=== PATIENT | female | born 1960 | race Caucasian/White ===

== ENCOUNTER 2018-08-14 23:35 | Inpatient (IN) ==
[2018-08-15] MEDS ORDERED: SODIUM CHLORIDE 0.9% 500 ML IV SCH (00:15)
[2018-08-15] MEDS ORDERED: ALBUT/IPRATROP 3MG/0.5MG NEB 3 ML VIAL NEB STA (00:15)
[2018-08-15] MEDS ORDERED: PIPERACILLIN/TAZOBACTAM 4.5 GM/120 ML BAG IV ONE (00:17)
[2018-08-15] MEDS ORDERED: PIPERACILL/TAZOBAC CONSULT ACTIVE PRN ×2 (00:17→06:54)
[2018-08-15 01:14] LABS: Basophils # (auto) 0.01 K/uL (0-0.2); Basophils % (auto) 0.3 %; Hematocrit (blood only) 31.3 % (37-47); Hemoglobin 10.3 g/dL (12.0-16.0); Immature Granulocytes # (auto) 0.04 K/uL (0.00-0.02); Immature Granulocytes % (auto) 1.1 %; Lymphocytes # (auto) 1.48 K/uL (1.2-3.4); Mean Corpuscular Hgb Conc 32.9 g/dL (32-36); Mean Corpuscular Volume 91.8 fL (80-100); Monocytes # (auto) 0.56 K/uL (0.11-0.59); Monocytes % (auto) 15.9 %; Neutrophils # (auto) 1.43 K/uL (1.4-6.5); Neutrophils % (auto) 40.7 %; Platelet Count 156 K/uL (130-400); RDW Coefficient of Variation 15.8 % (11.5-14.5); RDW Standard Deviation 52.4 fL (36.4-46.3); Red Blood Count 3.41 M/uL (4.2-5.4); White Blood Count 3.52 K/uL (4.8-10.8)
[2018-08-15 01:17] LABS: iSTAT Creatinine 0.8 mg/dl (0.6-1.3); iSTAT Hemoglobin 9.5 g/dl (12.0-16.0); iSTAT Ionized Calcium 0.81 mmol/l (1.12-1.32); iSTAT Potassium 2.9 mEq/L (3.3-5.0)
[2018-08-15 01:21] LABS: iSTAT Creatinine 0.8 mg/dl (0.6-1.3); iSTAT Hemoglobin 9.2 g/dl (12.0-16.0); iSTAT Ionized Calcium 0.8 mmol/l (1.12-1.32); iSTAT Potassium 3.2 mEq/L (3.3-5.0)
--- NOTE | 2018-08-15 01:22 | Emergency Department Note ---
History of Present Illness General Chief complaint: Respiratory Problems Stated complaint: SILENT ASPIRATIATOR CANCER STOMACH BLEEDING History of Present Illness Maximum Pain Intensity: 2 This 57-year-old presents to the ER complaining of cough, shortness of breath, abdominal pain concerns for aspiration Location: Generalized Quality: Uncomfortable Severity: Moderate Duration: Today Timing: Patient thinks she aspirated on the liquid Context: Patient was concerned and came in Modifying factors: better with nothing; worse with palpation and breathing Patient has a history of neck and throat cancer. No recent chemo or radiation. She follows at [facility]. Patient states she aspirates on liquids and needs to thicken them. She did not do this tonight. She thinks she aspirated on her drink. Patient also comments of bruising and pain to her mid abdomen. Patient denies chest pain, fevers, productive cough, numbness, tingling. She states she normally needs antibiotics when she aspirates. Home Medications Home Medications Medication Instructions Recorded Confirmed Type levothyroxine [Synthroid] 137 mcg PO DAILY 08/15/18 08/15/18 History lorazepam [Ativan] 1 mg PO TID PRN 08/15/18 08/15/18 History oxycodone 15 mg PO DAILY PRN 08/15/18 08/15/18 History pantoprazole [Protonix] 20 mg PO QAM 08/15/18 08/15/18 History Allergies Allergy/AdvReac Type Severity Reaction Status Date / Time omeprazole [From Prilosec] Allergy Rash Verified 08/15/18 03:38 prednisone Allergy Unknown Verified 08/15/18 03:38 Past Med/Surg History Medical History Cancer of neck Social History Feels Safe at Home: Yes Smoking Status: Former smoker Review of Systems All systems reviewed & are unremarkable except as noted in HPI & below Physical Exam Vital Signs Vital Signs - 24 hr 08/14/18 23:39 08/15/18 00:33 08/15/18 01:37 Temperature 36.8 C Temperature Source Oral Sepsis Recent Fever Within 48 Hours No Sepsis Action Taken by Nursing No Action Required Pulse Rate 95 H Pulse Rate [Right Finger] 87 97 H Respiratory Rate 20 18 18 Respiratory Effort / Characteristics Non-Labored Respiratory Depth Normal Blood Pressure 116/82 Blood Pressure [Right Arm] 84/53 L Blood Pressure Mean 93 Blood Pressure Mean [Right Arm] 63 Pulse Oximetry 99 98 Oxygen Delivery Method Room Air Room Air Oxygen Flow Rate 08/15/18 02:14 08/15/18 02:44 08/15/18 03:03 Temperature Temperature Source Sepsis Recent Fever Within 48 Hours Sepsis Action Taken by Nursing Pulse Rate Pulse Rate [Right Finger] 87 90 Respiratory Rate 18 19 Respiratory Effort / Characteristics Respiratory Depth Blood Pressure Blood Pressure [Right Arm] 94/64 L 90/60 L 118/88 Blood Pressure Mean Blood Pressure Mean [Right Arm] 74 70 98 Pulse Oximetry 88 L 98 Oxygen Delivery Method Room Air Nasal Cannula Oxygen Flow Rate 1 1 VITALS: Vitals are noted on the nurse's note and reviewed by myself. Vital signs stable. GENERAL: Pleasant female, in no acute distress, nondiaphoretic, well-developed well-nourished. SKIN: The skin was without rashes, erythema, edema, or bruising. There is no tenting of the skin. Capillary reflex less than 2 seconds. HEAD: Normocephalic atraumatic. EARS: External auditory canals clear, tympanic membranes pearly hyde without erythema or effusion bilaterally. EYES: Pupils equal round and reactive to light and accommodation. Conjunctivae without injection, sclerae without icterus. Extraocular movements intact. NOSE: Patent, turbinates without inflammation or discharge. No sinus tenderness. MOUTH: Mucous membranes dry. Pharynx without erythema or exudate. Uvula midline. Airway patent. Tongue does not deviate. NECK: Supple without nuchal rigidity. No lymphadenopathy. No thyromegaly. Cervical spine is nontender. No JVD. HEART: Regular rate and rhythm LUNGS: Mild diffuse and expiratory wheezes, no rales or rhonchi. No retractions or accessory muscle use. ABDOMEN: Positive bowel sounds x 4. Normal tympanic percussion. Soft, tender to palpation mid abdomen with contusion present, minimal drainage from old PEG tube site, wound culture was taken, without masses or organomegaly. Cancino sign negative. No guarding or rebound tenderness. No CVA tenderness MUSCULOSKELETAL: No muscle atrophy, erythema, or edema noted. NEURO: Patient was alert and oriented to person place and time. Normal sensation to light and sharp touch. No focal neurological deficits. Course Administered Medications Magnesium Sulfate/Dextrose (Magnesium Sulfate / D5w) 1 gm in 100 mls @ 100 mls/hr IV Q1H HARSHAD Stop: 08/15/18 04:59 Last Admin: 08/15/18 03:10 Dose: 100 mls/hr Documented by: [id number] Ioversol (Optiray 320 100ml) 94 ml IV ONCE PRN PRN Reason: Interaction Checking Stop: 08/19/18 01:34 Last Admin: 08/15/18 01:36 Dose: 1 ml Documented by: [id number] Discontinued Medications Albuterol (Duoneb) 3 ml NEB NOW STA Stop: 08/15/18 00:16 Last Admin: 08/15/18 00:30 Dose: 3 ml Documented by: [id number] Piperacillin Sod/Tazobactam Sod (Zosyn) 4.5 gm in 120 mls @ 240 mls/hr IV NOW ONE Stop: 08/15/18 00:46 Last Infusion: 08/15/18 02:02 Dose: 0 mls/hr Documented by: [id number] Admin: 08/15/18 01:19 Dose: 240 mls/hr Documented by: [id number] Sodium Chloride (Nss) 500 mls @ 999 mls/hr IV .Q31M HARSHAD Stop: 08/15/18 00:45 Last Infusion: 08/15/18 01:40 Dose: 0 mls/hr Documented by: [id number] Admin: 08/15/18 01:13 Dose: 999 mls/hr Documented by: [id number] Sodium Chloride (Nss) 500 mls @ 999 mls/hr IV .Q31M ONE Stop: 08/15/18 03:19 Last Admin: 08/15/18 03:03 Dose: 999 mls/hr Documented by: [id number] Potassium Chloride (Klor-Con M10) 40 meq PO NOW STA Stop: 08/15/18 02:33 Last Admin: 08/15/18 03:02 Dose: Not Given Documented by: [id number] Potassium Chloride (Colette Ciel Elix) Confirm Administered Dose 40 meq .ROUTE .STK- MED ONE Stop: 08/15/18 02:52 Last Admin: 08/15/18 03:03 Dose: 40 meq Documented by: [id number] Medical Decision Making Medical Records Attestation: I reviewed the patient's medical records. Home Medications Current Medication List: was personally reviewed by me Laboratory Data Attestation: I reviewed the patient's lab results. Result diagrams: 08/15/18 01:03 08/15/18 01:03 Lab Results 08/15/18 08/15/18 08/15/18 Range/Units 01:00 01:03 01:03 WBC 3.52 L (4.8-10.8) K/uL RBC 3.41 L (4.2-5.4) M/uL Hgb 10.3 L (12.0-16.0) g/dL POC Hgb (12.0-16.0) g/dl Hct 31.3 L (37-47) % POC Hct (37-47) % MCV 91.8 (80-100) fL MCH 30.2 (25-34) pg MCHC 32.9 (32-36) g/dL RDW Std Deviation 52.4 H (36.4-46.3) fL RDW Coeff of Ainsley 15.8 H (11.5-14.5) % Plt Count 156 (130-400) K/uL MPV 9.0 (7.4-10.4) fL Immature Gran % (Auto) 1.1 % Neut % (Auto) 40.7 % Lymph % (Auto) 42.0 % Dare % (Auto) 15.9 % Eos % (Auto) 0.0 % Baso % (Auto) 0.3 % Immature Gran # (Auto) 0.04 H (0.00-0.02) K/uL Neut # (Auto) 1.43 (1.4-6.5) K/uL Lymph # (Auto) 1.48 (1.2-3.4) K/uL Dare # (Auto) 0.56 (0.11-0.59) K/uL Eos # (Auto) 0.00 (0-0.5) K/uL Baso # (Auto) 0.01 (0-0.2) K/uL PT 10.2 (9.0-12.0) Seconds INR 1.0 (0.9-1.1) APTT 23.3 (21.0-31.0) Seconds PTT Ratio 0.9 POC Sodium (135-144) mEq/L Sodium (136-145) mmol/L POC Potassium (3.3-5.0) mEq/L Potassium (3.5-5.1) mmol/L POC Chloride (101-112) mEq/L Chloride (98-107) mmol/L Carbon Dioxide (21-32) mmol/L POC Total CO2 (24-31) mEq/l Anion Gap (3-11) POC Anion Gap (16-25) mmol/L POC BUN (7-18) mg/dl BUN (7-18) mg/dl Creatinine (0.6-1.2) mg/dl POC Creatinine (0.6-1.3) mg/dl Est Cr Clr Drug Dosing ml/min Est GFR ( Amer) Est GFR (Non-Af Amer) BUN/Creatinine Ratio (10-20) Glucose (70-99) mg/dl POC Glucose (other) (70-99) mg/dl POC Lactic Acid Davian 1.38 (0.90-1.70) mmol/L Calcium (8.5-10.1) mg/dl POC Ioniz Calcium [place] (1.12-1.32) mmol/l Magnesium (1.8-2.4) mg/dl Total Bilirubin (0.2-1) mg/dl AST (15-37) U/L ALT (12-78) U/L Alkaline Phosphatase (45-117) U/L Total Protein (6.4-8.2) gm/dl Albumin (3.4-5.0) gm/dl Globulin (2.5-4.0) gm/dl Albumin/Globulin Ratio (0.9-2) Urine Color Urine Appearance (Clear) Urine pH (4.5-7.5) Ur Specific [place] (1.000-1.030) Urine Protein (Negative) Urine Glucose (UA) (Negative) Urine Ketones (Negative) Urine Blood (Negative) Urine Nitrite (Negative) Urine Bilirubin (Negative) Urine Urobilinogen (Negative) Ur Leukocyte Esterase (Negative) 08/15/18 08/15/18 08/15/18 Range/Units 01:03 01:04 01:09 WBC (4.8-10.8) K/uL RBC (4.2-5.4) M/uL Hgb (12.0-16.0) g/dL POC Hgb 9.5 L 9.2 L (12.0-16.0) g/dl Hct (37-47) % POC Hct 28 L 27 L (37-47) % MCV (80-100) fL MCH (25-34) pg MCHC (32-36) g/dL RDW Std Deviation (36.4-46.3) fL RDW Coeff of Ainsley (11.5-14.5) % Plt Count (130-400) K/uL MPV (7.4-10.4) fL Immature Gran % (Auto) % Neut % (Auto) % Lymph % (Auto) % Dare % (Auto) % Eos % (Auto) % Baso % (Auto) % Immature Gran # (Auto) (0.00-0.02) K/uL Neut # (Auto) (1.4-6.5) K/uL Lymph # (Auto) (1.2-3.4) K/uL Dare # (Auto) (0.11-0.59) K/uL Eos # (Auto) (0-0.5) K/uL Baso # (Auto) (0-0.2) K/uL PT (9.0-12.0) Seconds INR (0.9-1.1) APTT (21.0-31.0) Seconds PTT Ratio POC Sodium 142 142 (135-144) mEq/L Sodium 144 (136-145) mmol/L POC Potassium 2.9 L 3.2 L (3.3-5.0) mEq/L Potassium 3.0 L (3.5-5.1) mmol/L POC Chloride 97 L 97 L (101-112) mEq/L Chloride 105 (98-107) mmol/L Carbon Dioxide 33 H (21-32) mmol/L POC Total CO2 28 28 (24-31) mEq/l Anion Gap 6.0 (3-11) POC Anion Gap 21.0 22.0 (16-25) mmol/L POC BUN 16 16 (7-18) mg/dl BUN 17 (7-18) mg/dl Creatinine 0.74 (0.6-1.2) mg/dl POC Creatinine 0.8 0.8 (0.6-1.3) mg/dl Est Cr Clr Drug Dosing 76.7 ml/min Est GFR ( Amer) 102.8 Est GFR (Non-Af Amer) 88.7 BUN/Creatinine Ratio 22.4 H (10-20) Glucose 91 (70-99) mg/dl POC Glucose (other) 97 92 (70-99) mg/dl POC Lactic Acid Davian (0.90-1.70) mmol/L Calcium 5.9 L* (8.5-10.1) mg/dl POC Ioniz Calcium [place] 0.81 L 0.80 L (1.12-1.32) mmol/l Magnesium 0.8 L* (1.8-2.4) mg/dl Total Bilirubin 0.8 (0.2-1) mg/dl AST 27 (15-37) U/L ALT 35 (12-78) U/L Alkaline Phosphatase 48 (45-117) U/L Total Protein 5.3 L (6.4-8.2) gm/dl Albumin 2.8 L (3.4-5.0) gm/dl Globulin 2.5 (2.5-4.0) gm/dl Albumin/Globulin Ratio 1.1 (0.9-2) Urine Color Urine Appearance (Clear) Urine pH (4.5-7.5) Ur Specific [place] (1.000-1.030) Urine Protein (Negative) Urine Glucose (UA) (Negative) Urine Ketones (Negative) Urine Blood (Negative) Urine Nitrite (Negative) Urine Bilirubin (Negative) Urine Urobilinogen (Negative) Ur Leukocyte Esterase (Negative) 08/15/18 08/15/18 Range/Units 01:13 03:00 WBC (4.8-10.8) K/uL RBC (4.2-5.4) M/uL Hgb (12.0-16.0) g/dL POC Hgb (12.0-16.0) g/dl Hct (37-47) % POC Hct (37-47) % MCV (80-100) fL MCH (25-34) pg MCHC (32-36) g/dL RDW Std Deviation (36.4-46.3) fL RDW Coeff of Ainsley (11.5-14.5) % Plt Count (130-400) K/uL MPV (7.4-10.4) fL Immature Gran % (Auto) % Neut % (Auto) % Lymph % (Auto) % Dare % (Auto) % Eos % (Auto) % Baso % (Auto) % Immature Gran # (Auto) (0.00-0.02) K/uL Neut # (Auto) (1.4-6.5) K/uL Lymph # (Auto) (1.2-3.4) K/uL Dare # (Auto) (0.11-0.59) K/uL Eos # (Auto) (0-0.5) K/uL Baso # (Auto) (0-0.2) K/uL PT (9.0-12.0) Seconds INR (0.9-1.1) APTT (21.0-31.0) Seconds PTT Ratio POC Sodium (135-144) mEq/L Sodium (136-145) mmol/L POC Potassium (3.3-5.0) mEq/L Potassium (3.5-5.1) mmol/L POC Chloride (101-112) mEq/L Chloride (98-107) mmol/L Carbon Dioxide (21-32) mmol/L POC Total CO2 (24-31) mEq/l Anion Gap (3-11) POC Anion Gap (16-25) mmol/L POC BUN (7-18) mg/dl BUN (7-18) mg/dl Creatinine (0.6-1.2) mg/dl POC Creatinine (0.6-1.3) mg/dl Est Cr Clr Drug Dosing ml/min Est GFR ( Amer) Est GFR (Non-Af Amer) BUN/Creatinine Ratio (10-20) Glucose (70-99) mg/dl POC Glucose (other) (70-99) mg/dl POC Lactic Acid Davian 1.56 (0.90-1.70) mmol/L Calcium (8.5-10.1) mg/dl POC Ioniz Calcium [place] (1.12-1.32) mmol/l Magnesium (1.8-2.4) mg/dl Total Bilirubin (0.2-1) mg/dl AST (15-37) U/L ALT (12-78) U/L Alkaline Phosphatase (45-117) U/L Total Protein (6.4-8.2) gm/dl Albumin (3.4-5.0) gm/dl Globulin (2.5-4.0) gm/dl Albumin/Globulin Ratio (0.9-2) Urine Color Yellow Urine Appearance Clear (Clear) Urine pH 6.5 (4.5-7.5) Ur Specific [place] 1.030 (1.000-1.030) Urine Protein Negative (Negative) Urine Glucose (UA) Negative (Negative) Urine Ketones Negative (Negative) Urine Blood Negative (Negative) Urine Nitrite Negative (Negative) Urine Bilirubin Negative (Negative) Urine Urobilinogen Negative (Negative) Ur Leukocyte Esterase Negative (Negative) Imaging Data Attestation: I personally reviewed and interpreted this imaging study as follows: MDM Narrative Prior records/ancillary studies reviewed and summarized above. Nursing notes reviewed. The patient's history was concerning for dysphasia, cough, abdominal pain. Differential diagnosis: Etiologies such as aspiration, intra-abdominal, pulmonary, metabolic, infection, hypo/hyperglycemia, electrolyte abnormalities, cardiac sources, intracerebral event, toxicologic, neurologic, as well as others were entertained. Physical examination: As above. ER treatment provided: IV Lock IV fluids, Zosyn, nebulizer On reassessment the patient felt better. Diagnostics interpretation by me: ECG: Normal sinus, normal intervals, no acute ST-T wave changes. Impression normal sinus rhythm interpreted by myself I think arrhythmia is unlikely. EKG shows normal sinus rhythm with no interval abnormalities such as QT prolongation or WPW. There are no findings to suggest Brugada syndrome. Cardiac monitoring in the emergency department reveals no tachycardic or bradycardic dysrhythmia. Hypertrophic cardiomyopathy was considered but there are no clear historical elements pointing toward this. EKG is not suggestive. The QRS voltage is not extremely large and there are no suggestive Q waves. The labs revealed no leukocytosis. Blood cultures pending Low potassium, low magnesium, low calcium Imaging studies: Chest x-ray with no acute consolidation, pneumothorax or free air per my interpretation CT CHEST With Contrast: Minimal dependent atelectasis at lung bases. Mild nodularity in left lower lobe, measuring up to 4 mm. No findings to suggest aspiration pneumonia. No pleural effusion. No mediastinal or hilar lymphadenopathy. Small pericardial effusion. Heart is not enlarged. Coronary artery calcifications. Degenerative changes of thoracic spine. Radiologist: Jean Kline MD CT NECK: Thickening of right oropharyngeal mucosa, epiglottis and right aryepiglottic fold, suggest suggesting tumor and/or posttreatment changes given history. Moderate resulting airway narrowing. No priors available for comparison. Heterogeneously enhancing, irregularly bordered, and partially calcified right level II mass/conglomerate lymphadenopathy measuring up to 4.5 x 2.6 x 4.1 cm, consistent with metastatic disease. 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 Mass also involves the inferior aspect of the right parotid gland. Additional 1.2 cm likely necrotic right level 2/3 lymph node. Mild to moderate paranasal sinus mucosal thickening. Complete opacification of visualized left frontal sinus. Subcentimeter thyroid nodularity. Thyroid is small in size. Degenerative changes of cervical spine. 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 Partially calcified disc extrusion at C3-C4 causes moderate canal stenosis Radiologist: Jean Kline MD Study ready at 01:51 and initial results transmitted at 02:25 There is a tract in the left upper abdominal wall, likely related to prior PEG tube placement, with associated thick wall, fat stranding, and small foci of gas. Findings suggest possible infected surgical tract. Correlate with physical exam. There is mild intrahepatic and extrahepatic biliary ductal dilatation with common bile duct measuring up to 10 mm. Question small stone in distal common bile duct. Suggest further evaluation with MRCP as clinically warranted. Large calcified gallstone and probable mild gallbladder wall calcification. Gallbladder is not pathologically distended. 11 mm left adrenal nodule. Trace fluid in pelvis. No free air. Colonic diverticulosis without evidence of acute diverticulitis. Hyperdense material in the appendix, but no evidence of acute appendicitis. No bowel obstruction. Grade 2 anterolisthesis of L4 on L5. Multilevel degenerative changes of spine. Small fat-containing umbilical hernia. Radiologist: Jean Kline MD Consultation: A consultation was placed with the hospitalist, Dr Overton. The case was discussed and diagnostics were reviewed. The patient was evaluated in the ER for further treatment. Exam and history seem consistent with cellulitis of the PEG tube tract site, low potassium and magnesium. Patient will be evaluated by medicine. She is agreeable treatment plan of admission. Patient is refusing transfer to any other facility. Medicine feels comfortable admitting. By the evaluation outlined above emergent etiologies such as cardiac sources, intracerebral event, toxologic, neurologic, abnormalities blood glucose, metabolic, as well as others were deemed relatively unlikely. The pt informed about the findings as listed above. All questions were answered and pleased with the treatment. Case reviewed with my attending The chart was completed utilizing [employer] Speech voice recognition software. Grammatical errors, random word insertions, pronoun errors, and incomplete sentences are an occassional consequence of this system due to software limitations, ambient noise, and hardware issues. Any formal questions or concerns about the content, text, or information contained within the body of this dictation should be directly addressed to the physician respiratory care assistant for clarification. Impression & Plan Abdominal wall cellulitis, Hypokalemia, Hypomagnesemia Discharge Plan Visit Data Chief Complaint: Respiratory Problems Stated Complaint: SILENT ASPIRATIATOR CANCER STOMACH BLEEDING ED Provider: Jean Nevarez ED Midlevel Provider: Pearl Bennett Discharge Problem: Abdominal wall cellulitis, Hypokalemia, Hypomagnesemia Patient Disposition: Being Evaluated by Hospitalist Condition: Fair Forms Stand Alone Forms: [facility] Prescriptions Prescriptions: No Action levothyroxine [Synthroid] 137 mcg Tablet 137 mcg PO DAILY RF: 0 oxycodone 15 mg Tablet 15 mg PO DAILY PRN (Reason: Pain) RF: 0 pantoprazole [Protonix] 20 mg Tablet,Delayed Release (Dr/Ec) 20 mg PO QAM RF: 0 lorazepam [Ativan] 1 mg Tablet 1 mg PO TID PRN (Reason: Anxiety) RF: 0 Referrals Referrals: PCP,NO [Primary Care Provider] -
[2018-08-15 01:26] LABS: Partial Thromboplastin Ratio 0.9; Partial Thromboplastin Time 23.3 Seconds (21.0-31.0); Prothrombin Time 10.2 Seconds (9.0-12.0)
[2018-08-15] MEDS ORDERED: IOVERSOL 100ml IV PRN (01:35)
[2018-08-15 02:08] LABS: Albumin Globulin Ratio 1.1 (0.9-2); Albumin Level 2.8 gm/dl (3.4-5.0); BUN Creatinine Ratio 22.4 (10-20); Bilirubin,Total 0.8 mg/dl (0.2-1); Calcium 5.9 mg/dl (8.5-10.1); Creatinine Clr Calc Pharmacy 76.7 ml/min; Est GFR (African American) 102.8; Est GFR (Non-African American) 88.7; Globulin 2.5 gm/dl (2.5-4.0); Total Protein 5.3 gm/dl (6.4-8.2)
[2018-08-15] MEDS ORDERED: POTASSIUM CHLORIDE 10 MEQ TABCR PO STA (02:32)
[2018-08-15] MEDS ORDERED: SODIUM CHLORIDE 0.9% 500 ML IV ONE (02:49)
[2018-08-15] MEDS ORDERED: POTASSIUM CHLORIDE 20 MEQ/15 ML UDC ONE (02:51)
[2018-08-15 02:55] LABS: Magnesium 0.8 mg/dl (1.8-2.4)
[2018-08-15] MEDS ORDERED: MAGNESIUM SULFATE / D5W 1 GM/100 ML BAG IV SCH ×2 (03:00→07:30)
[2018-08-15 03:17] LABS: Appearance Urine Clear (Clear); Bilirubin Urine Negative (Negative); Blood Urine Negative (Negative); Color Urine Yellow; Glucose Urine UA Negative (Negative); Ketones Urine Negative (Negative); Leukocyte Esterase Urine Negative (Negative); Nitrite Urine Negative (Negative); Protein Urine Negative (Negative); Urobilinogen Urine Negative (Negative); pH Urine 6.5 (4.5-7.5)
[2018-08-15] MEDS ORDERED: CALCIUM GLUCONATE 10% 1,000 MG in SODIUM CHLORIDE 0.9% 50 ML IV STA (04:51)
[2018-08-15] MEDS ORDERED: LEVOTHYROXINE SODIUM 137 MCG TABLET PO SCH (06:30)
[2018-08-15] MEDS ORDERED: OXYCODONE HCL IR 5 MG TAB (IMMEDIATE RELEASE) PO PRN (06:54)
[2018-08-15] MEDS ORDERED: PIPERACILLIN/TAZOBACTAM 4.5 GM in DEXTROSE 5% 100 ML IV STA (06:54)
[2018-08-15] MEDS ORDERED: LORazepam 1 MG TAB PO PRN (06:54)
[2018-08-15] MEDS ORDERED: NITROGLYCERIN SL 0.4 MG/TAB TAB SL PRN (06:54)
[2018-08-15] MEDS ORDERED: POTASSIUM CHLORIDE 20 MEQ TABCR PO STA (06:54)
[2018-08-15] MEDS ORDERED: MAGNESIUM SULFATE / D5W 1 GM/100 ML BAG IV ONE (06:54)
[2018-08-15] MEDS ORDERED: ONDANSETRON INJ 2 MG/ML 2 ML VIAL IV PRN (06:54)
[2018-08-15] MEDS ORDERED: ACETAMINOPHEN 325 MG TAB PO PRN (06:54)
[2018-08-15] MEDS: SODIUM CHLORIDE 0.9% 1000ML 1,000 ML IV SCH ×2 (07:40→19:51)
[2018-08-15] MEDS: PIPERACILLIN/TAZOBACTAM 3.375 GM in DEXTROSE 5% 100 ML IV SCH ×2 (07:40→16:25)
[2018-08-15] MEDS: CALCIUM 600MG + VIT D 400 IU TAB PO SCH ×2 (09:44→21:13)
[2018-08-15] MEDS: PANTOprazole 40 MG TAB PO SCH (09:45)
--- NOTE | 2018-08-15 09:50 | History and Physical Report ---
DATE OF ADMISSION: 08/15/2018 CHIEF COMPLAINT: Questionable aspiration and PEG tube site infection. HISTORY OF PRESENT ILLNESS: This is a 57-year-old female with past medical history significant for hypothyroidism, GERD, history of neck cancer diagnosed about 3-4 years ago, follows with [facility], had chemo and radiation initially and also had Keytruda but was stopped secondary to pneumonitis. Had recurrence of cancer in December 2017 as per patient. Patient says her oncologist at [facility] left to [place] and she was apparently supposed to have a different oncologist and that oncologist also left. Right now, she is only following radiation oncologist . Patient says she recently had PET scan and there is a plan for radiation starting the of this month, but the patient says she is not happy as meanwhile nothing was done.. I She thinks that she may go to [place]. She is from [facility]. Last time as per patient she admitted to [facility] was about 3-4 weeks ago. She came to [place] to visit her son. Initially, she was on PEG tube, but the tube taken out about 2 years ago, but tract is not closed. She has some discomfort on the tract site .She is on regular diet, but she thickens the liquids. As per the ER, she could not thicken her liquid tonight and she seems that she aspirated, but when asked, she says she was able to thicken liquids, but she thought that she thinks she is aspirating silently, that is why she came to the hospital. Apparently, except for some mild abdominal discomfort at the tube site, the patient has no other complaints. The patient does not want to go back to [facility], does not want to go to [facility], the patient likes to get admitted here and observed. Denies any fever, chills. Currently, no shortness of breath, no cough, no headache, no blurred vision,no nausea, no vomiting. She says she recently had a bruise in her belly and was concerned about it, not on any antiplatelets or anticoagulation. Some mild discomfort at the PEG tube which is not closed. Denies any diarrhea or constipation, no blood in the stools or black stools. No burning micturition, no hematuria. No swelling of the legs. Has some headaches, has some blurred visions. Has some sore throat and runny nose. The patient says she was told the tumor is attached to the jugular vein. ALLERGIES: OMEPRAZOLE, PREDNISONE. PAST MEDICAL HISTORY: As mentioned above. PAST SURGICAL HISTORY: PEG tube placement. MEDICATIONS: Levothyroxine 137 mcg p.o. daily, Ativan 1 mg p.o. t.i.d. p.r.n., oxycodone 50 mg p.o. daily p.r.n., Protonix 20 mg p.o. a.m. FAMILY HISTORY: Father has had heart disorder. Mother has had cancer. SOCIAL HISTORY: The patient smoked 1 pack a day since age of 14, but quit about 4 years ago when she was diagnosed with cancer. No alcohol use. Lives alone, currently lives with her son. REVIEW OF SYMPTOMS: As per HPI. Rest of review of symptoms is negative. PHYSICAL EXAMINATION: GENERAL: The patient is of moderate build, not in acute distress. VITAL SIGNS: Temperature 36.8, pulse 90, respiratory rate 19, blood pressure 118/80, oxygen 98% on 1 liter. HEENT: No pallor, no icterus. Pupils equal, round, reactive to light. NECK: Neck mass seen on the right mandibular region extending upto the lateral aspect of upper right neck . No carotid bruits. CARDIOVASCULAR: S1, S2 heard, regular rate and rhythm, no murmur, no gallop. RESPIRATORY SYSTEM: Normal AP diameter. No accessory muscle use. No wheezing, no crackles. ABDOMEN: Bruise seen in the right umbilical region. PEG tube site still not closed and there was mild discharge seen. CENTRAL NERVOUS SYSTEM: Cranial nerves II-XII grossly nonfocal. EXTREMITIES: No edema, no erythema. LABORATORY DATA: WBC 3.5, hemoglobin 10.3, hematocrit 31.3, platelets 156. PT 10.2, INR 1, APTT 23.3. Sodium 144, potassium 3, chloride 105, bicarb 33, BUN 17, creatinine 0.7, serum glucose 91. Point of care lactic acid is 1.5, calcium 5.9, magnesium 0.8, total bilirubin 0.8, AST 27, ALT 35, alkaline phosphatase 48. Urinalysis negative. CT chest with contrast, mild nodularity in the left lower lobe, measuring 4 mm. No findings suggested aspiration pneumonitis. CT of abdomen and pelvis with contrast showed left upper abdominal wall tract likely related to prior PEG tube placement with associated thick wall and small foci of gas. Findings suggest possible infected surgical tract. Mild intrahepatic and extrahepatic biliary ductal dilatation with common bile duct measuring about up to 10 mm, question of a small stone in the distal common bile duct suggests further evaluation with MRCP, large calcified gallstones and probable mild gallbladder calcification. Gallbladder is not pathologically distended, 11 mm left adrenal node, multilevel degenerative changes of the spine. CT of the neck, thickening of the right oropharyngeal mucosa, epiglottitis and right aryepiglottic folds that suggest tumor and post-treatment changes, moderate resulting airway narrowing but no priors for comparison. 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 EKG shows normal sinus rhythm at the rate of 90, no acute ST changes seen. ASSESSMENT AND PLAN: This is a 57-year-old female with history of neck cancer, presents with possible questionable aspiration and also PEG tube tract infection, possible common bile duct stone. 1. Possible aspiration pneumonitis. The patient is on regular diet and thickened liquids. Question of not thickening liquids today and aspirated vs silent aspiration. CAT scan shows no obvious aspiration. No fever and no leukocytosis. Started on iv Zosyn in the ER, which we will continue. We will keep her n.p.o. and speech evaluation in am. 2. PEG tube tract site infection. The patient has PEG tube taken out 2 years ago, but the tract is not closed properly, some mild discomfort there and CAT scan showing possible infection of the tract, on IV Zosyn. We will follow the cultures. Consult GI for further recommendations. 3. Possible gallstone, possible CBD stone on the CAT scan of the abdomen and pelvis. Will follow the official report. LFTs are okay and no fever. Antibiotics as above, await GI input. We will also get ultrasound of the gallbladder.May consider MRCP . Await GI input. Follow the repeat labs. 4. 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 The patient was diagnosed initially about 3-4 years ago, had chemoradiation initially and also Keytruda which caused pneumonitis and was stopped. Follows with [facility]. Recurrence of cancer in December 2017.Her oncologist left to [place] and second oncologist also left. She does not have any oncologist now she is just following with radiation oncology at [facility] and there is a plan for radiation treatment starting this month on August 24. But patient says might go to [place] instead of [place]. She is from [place], goes to [facility], but does not want to go back there today and does not want to go to [place].Wants to get admitted here. Will follow official reports of f CAT scans. There is question of internal jugular vein thrombosed or occluded at the site of the mass. The patient says the mass is attached to the jugular vein, it might be a chronic finding. We do not have any old records. Needs close followup.Her radiation oncologist is at [facility]. Will try to call and get more information. 5. Electrolyte abnormalities with hypomagnesemia, magnesium of 0.8. We will replace and follow the repeat labs. 6. Hypokalemia, potassium of 3. We will replace and follow the repeat labs. 7. Hypercalcemia, calcium of 5.9, albumin 2.8, corrected calcium is about 6.6. We will give 1 dose of IV calcium gluconate, plus calcium, plus vitamin D tablets twice daily. We will check vitamin D levels. Needs close followup with PCP. 8. Leukopenia and anemia, mostly from cancer. Followup labs. 9. Hypothyroidism. Continue Synthroid. 10.GERD We will continue PPI. 11. Deep venous thrombosis prophylaxis, sequential compression devices for now. 12. Disposition: Admit to med/surg tele. Level 1 full code. Expect discharge home and follow with her PCP and radiation oncologist. SHERIFD
--- NOTE | 2018-08-15 09:56 | CT Scan Report ---
CT SCAN OF THE NECK WITH IV CONTRAST CLINICAL HISTORY: Dyspnea. Reported history of head and neck cancer. Dysphagia. Aspiration. COMPARISON STUDY: No priors. TECHNIQUE: Following the IV administration of 94 cc of Optiray 320, CT scan of the soft tissues of e neck was performed from the skull base to the upper chest. Images are reviewed in the axial, sagitt al, and coronal planes. IV contrast was administered without complication. A dose lowering techniqu e was utilized adhering to the principles of ALARA. FINDINGS: Soft tissues: There is a heterogeneously enhancing mass lesion identified in the right cervical soft tissues centered along the course of the sternocleidomastoid muscle. This is best seen on image #74 a nd measures approximately 5 x 4.5 x 3.5 cm. This invades inferior aspect of the right parotid gland, the right sternocleidomastoid muscle, and extends into the right parapharyngeal space with mild effac ement of the parapharyngeal fat. This occludes the right internal jugular vein and abuts the right ca rotid bulb without encasement. There is soft tissue infiltration identified around the mass. Pharynx: There is thickening of the right oropharyngeal mucosa, epiglottis, and the right pericolonic fold. This may represent tumor versus posttreatment change. There is moderate airway narrowing at th is level. As noted above, an infiltrative right neck mass extends into and effaces the right paraphar yngeal soft tissues. There is no significant airway compromise at this time. The vocal cords are sym metric. The left parapharyngeal fat is well maintained. The prevertebral/retropharyngeal soft tissues are within normal limits. Lymphadenopathy: There are small and centrally necrotic right cervical chain lymph nodes. A node seen on image #102 measures 1.0 x 0.9 cm. A node on image #92 measures 0.9 cm. Thyroid: Normal in size and attenuation. A 4 mm low-attenuation nodule is noted in the right lobe. Salivary glands: As noted above, a right cervical mass invades inferior portion of the right parotid gland. The left parotid gland and the submandibular glands are within normal limits. Brain parenchyma: The visualized brain parenchyma at the skull base is normal in appearance. Vascular structures: The carotid arteries, vertebral arteries, and left internal jugular vein are pat ent. 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 Skeletal structures: Imaged portions of the calvarium at the skull base are within normal limits. The cervical spine appears intact noting spondylotic change. The posterior longitudinal ligament appears thickened and calcified. The patient is edentulous. Sinuses and mastoids: There is mucosal thickening within the frontal, ethmoid, sphenoid, and right ma xillary sinuses. There is a right mastoid effusion. The left mastoid air cells are well pneumatized. Orbits: The bony orbits are intact. Orbital contents are normal in appearance. Lung apices: Visualized apical lung parenchyma is clear. IMPRESSION: 1. There is thickening of the right pharyngeal soft tissues as above, possibly resenting tumor versus posttreatment change. Correlation with the patient's oncological history will be essential. 2. There is an approximately 5 x 4.5 x 3.5 cm heterogeneously enhancing and infiltrative mass centere d in the right cervical chain soft tissues as above, likely representing metastatic disease. 3. The mass lesion invades the right parotid gland and extends into the right parapharyngeal region. 4. The mass lesion encases and occludes the right internal jugular vein. 5. There are small centrally necrotic right cervical chain lymph nodes indicating metastatic involvem ent. 6. There is moderate narrowing of the pharyngeal airway. Electronically signed by: Devan Meade M.D. 08/15/2018 9:53 AM
--- NOTE | 2018-08-15 10:10 | CT Scan Report ---
CT SCAN OF THE CHEST, ABDOMEN, AND PELVIS WITH IV CONTRAST CLINICAL HISTORY: Dyspnea. Generalized abdominal pain. Aspiration. Reported history of head and neck cancer. COMPARISON STUDY: Chest x-ray dated 08/15/2018. TECHNIQUE: Following the IV administration of 94 of Optiray 320, CT scan of the chest, abdomen, and p keyla was performed from the thoracic inlet to the proximal femora. Images are reviewed in the axial, sagittal, and coronal planes. IV contrast was administered without complication. A dose lowering t echnique was utilized adhering to the principles of ALARA. CT DOSE: 1823.21 mGy.cm FINDINGS: CHEST: Thyroid: Imaged portions of the thyroid gland are normal in size and attenuation. Thoracic aorta: There is mild atherosclerotic calcification of the thoracic aorta, which is normal in caliber and demonstrates standard 3-vessel arch anatomy. No dissection is seen. Pulmonary vasculature: The pulmonary trunk is normal in caliber. There are no filling defects identif ied in the central pulmonary vessels to indicate pulmonary embolus. Note that this examination was no t protocoled for evaluation of the pulmonary arteries. Heart: The heart is normal in size and there is trace pericardial fluid. The coronary arteries are de nsely calcified. Lungs and pleural spaces: There is no airspace consolidation or pleural effusion. There are scattered foci of scarring/atelectasis. Punctate calcified granulomas are observed. The trachea and central ai rways are clear. Mediastinum: There is no mediastinal lymphadenopathy. Lauren: Clear. Axillae: There is no axillary lymphadenopathy. Bony thorax: No lytic or blastic lesions are identified. Calcific tendinopathy is noted in the right shoulder. Degenerative change is noted in the thoracic spine. ABDOMEN AND PELVIS: Liver: The contrast-enhanced liver is normal in size, contour, and attenuation. There is mild intrahe patic or ductal dilatation. The hepatic veins and portal veins are patent. Gallbladder: There is a large calcified gallstone, with no CT evidence of acute cholecystitis. Spleen: Normal in size and attenuation. Pancreas: Unremarkable. Adrenal glands: There is a 12 mm low-attenuation left adrenal nodule. This cannot be fairly character ized due to the presence of IV contrast. The right adrenal gland is normal in appearance. Kidneys: The contrast enhanced kidneys are normal in size and without hydronephrosis. The kidneys enh ance symmetrically. Abdominal vasculature: The abdominal aorta is normal in course and caliber noting mild atheroscleroti c calcification. Bowel: There is mild colonic diverticulosis without CT evidence of acute diverticulitis. No bowel obs truction is seen. There is mild colonic fecal retention. The appendix is well-visualized and normal. Peritoneum: There is no intraperitoneal free air or abdominal ascites. There is a small fat-containin g umbilical hernia. Lymphadenopathy: None. Pelvic viscera: The bladder, uterus, and adnexa are normal as imaged. Small ovarian follicles are not ed. Trace nonspecific fluid is seen in the cul-de-sac. Skeletal structures: No lytic or blastic lesions are seen. There is mild lumbosacral spondylosis. The re is a minimal superior endplate compression deformity of L3. Grade 1 anterolisthesis is noted at L4 -L5. Soft tissues: There is focal induration within the upper abdominal wall on image #117 and at likely r epresents a previous gastrostomy tube tract. The tract appears mildly thickened and hyperemic. Gas an d fluid are noted within the tract. IMPRESSION: 1. There is no evidence of metastatic disease in the chest, abdomen, or pelvis. 2. There is no airspace consolidation or pleural effusion. 3. Cholelithiasis. 4. A gastrostomy tube tract containing gas and fluid is noted within the ventral abdominal wall. Ther e is mild thickening, enhancement, and stranding involving the tract and infection is not excluded. C orrelation with clinical findings and direct visualization is recommended. 5. There is mild intrahepatic biliary ductal dilatation. This is of indeterminant significance and co rrelation with clinical findings and liver function studies will be required. 6. Trace nonspecific free fluid in the cul-de-sac is likely within physiologic limits. 7. A 12 mm low-attenuation left adrenal nodule likely represents an adenoma but cannot be definitivel y characterized due to the presence of IV contrast. 8. Additional findings as above. Electronically signed by: Devan Meade M.D. 08/15/2018 10:08 AM
--- NOTE | 2018-08-15 12:35 | XRay Report ---
SINGLE VIEW CHEST CLINICAL HISTORY: Dyspnea. FINDINGS: An AP, portable, upright chest radiograph is obtained. No prior studies are available for c omparison at the time of dictation. The examination is degraded by portable technique and patient rot ation. The cardiomediastinal silhouette is unremarkable. The lungs and pleural spaces are clear. No pneumothorax is seen. The skeletal structures are osteopenic. The bony thorax is grossly intact. Dege nerative change is noted in the thoracic spine. Calcific tendinopathy is seen in the left shoulder. IMPRESSION: No active disease in the chest. Electronically signed by: Devan Meade M.D. 08/15/2018 12:34 PM
[2018-08-15] MEDS: LORazepam 1 MG TAB PO SCH ×2 (17:13→23:21)
--- NOTE | 2018-08-15 19:13 | Communication Note ---
Date of Service: August 15, 2018 Patient admitted this morning. Dropped by this evening around 1700 to see how she was doing. She was experiencing some neck discomfort and requested a dose of her oxycodone. She expressed concerns about possible pneumonia. No pulmonary infiltrates per radiology interpretation of chest x-ray and CT of chest. Nevertheless, importance of aspiration precautions discussed. Patient reports that she has history of silent aspiration per previous swallowing evaluations. She was seen earlier today by [facility]. Repeat video swallow recommended for tomorrow with n.p.o. status until then. She has questions about her abnormal electrolytes. Significant weight loss associated with her head neck cancer. Suspect inadequate oral intake of electrolytes and other nutrients. Patient had a feeding tube in the past, but it was discontinued. Continue electrolyte replacement. Consult junior automation engineer for their recommendations. She has been experiencing drainage from her gastrostomy tube site for several months. CT demonstrated gas and fluid along the tract, raising possibility of infection. Will consult General Surgery. Medications reviewed and corrections made. Release of information from [facility] requested so that we have adequate information to provide the best care. Patient prefers that we do not obtain records.
[2018-08-15 19:39] LABS: BUN Creatinine Ratio 11.8 (10-20); Calcium 6.2 mg/dl (8.5-10.1); Creatinine Clr Calc Pharmacy 90.1 ml/min; Est GFR (African American) 113.8; Est GFR (Non-African American) 98.2; Magnesium 1.8 mg/dl (1.8-2.4); Phosphorus 2.5 mg/dl (2.5-4.9); Potassium 3.3 mmol/L (3.5-5.1)
[2018-08-15] MEDS ORDERED: dexAMETHasone 1 MG TAB PO ONE (19:47)
[2018-08-15] MEDS ORDERED: PNEUMOCOCCAL ADMINISTRATION CHARGE ONE (20:30)
[2018-08-15] MEDS ORDERED: PNEUMOCOCCAL POLYSACCHARIDES 25 MCG/0.5 ML VIAL/SYR IM ONE (20:30)
[2018-08-15] MEDS: POTASSIUM CHLORIDE IV SCH (21:13)
[2018-08-15] MEDS: D5W AND LACTATED RINGERS IV SCH (21:13)
[2018-08-15] MEDS: LEVALBUTEROL HCL 0.63 MG/3 ML NEB NEB PRN (21:37)
--- NOTE | 2018-08-15 22:12 | Consultation Report ---
DATE OF CONSULTATION: 08/15/2018 REFERRED BY: Dr. Overton. I was asked by Dr. Overton to consult on this woman for evaluation of possible PEG site infection. HISTORY OF PRESENT ILLNESS: The patient is a 57-year-old woman who was diagnosed with head and neck cancer about 3 years ago and she has been followed at numerous institutions, most recently [facility] about 3-4 weeks ago. At that time, she states she was treated for an infection of her PEG site. She noted some improvement with treatment, but she is continuing to have some issues with drainage, discomfort and even a recent ecchymosis below it without reporting any history of injury or injection at that site. She has not had any overt fevers or rigors. She states that the PEG tube was removed approximately 2 years ago and is not close since. She has also noted some bleeding from the site. The other concern was a recent CAT scan to evaluate this during this admission, revealed a slightly dilated common bile duct and evidence of cholelithiasis. She denies any right upper quadrant pain. I reviewed her medical records and her past medical history. PAST MEDICAL HISTORY: Significant for hypothyroidism, GERD. OUTPATIENT MEDICATIONS: Include levothyroxine, Ativan, Protonix, oxycodone p.r.n. FAMILY HISTORY: Noncontributory. SOCIAL HISTORY: Significant for being a former smoker, smoked a pack a day since young age but quit about 4 years ago. She denies any alcohol use. ALLERGIES: SHE STATES SHE IS ALLERGIC TO OMEPRAZOLE AND PREDNISONE. REVIEW OF SYSTEMS: As above, otherwise she denies any recent change in vision or hearing. She has had no rigors. She denies any jaundice, icterus, or pruritus. She denies any joint swelling. She has had no seizures. She denies any overt gastrointestinal bleeding, though she has had some bleeding from the PEG site but not recently. She has had some depressed mood, but no suicidal ideation. She denies any dysuria. She has had no vomiting, though she has had some issues with aspiration when eating. She has had no productive cough or exertional chest pain. PHYSICAL EXAMINATION: GENERAL: Reveals a woman in bed in no acute distress. VITAL SIGNS: Most recent vitals shows blood pressure of 100/68, pulse of 81, temperature is 36.6. SKIN: Anicteric. EYES: Show anicteric sclerae. She has typical radiation changes to the right side of her neck and evidence of prior surgery. CHEST: Has some scattered rhonchi. HEART: Regular. ABDOMEN: Soft with good bowel sounds. There is no organomegaly, masses, rebound tenderness noted. Her PEG site is draining a small amount of what appears to be pus-like material. There is no significant induration or erythema. However, there is a little bit of fullness on palpation of the area about the size of a quarter around the enterocutaneous fistulous tract. There is also an ecchymosis several centimeters below this. EXTREMITIES: Warm with fair distal pulses. NEUROLOGIC: She is alert and oriented and grossly intact. LABORATORY DATA: Show a white blood cell count of 3.5, hemoglobin of 10, platelet count of 156,000. Liver enzymes were normal with a total bilirubin of 0.8, AST of 27, ALT of 35, alkaline phosphatase of 48. An imaging of the abdomen revealed a large calcified gallstone. There was no CT evidence of cholecystitis. There is some mild intrahepatic ductal dilatation, but no evidence of luminal contents and the gastrostomy tract showed some gas and fluid and some stranding, possibly representing infection. IMPRESSION: A 57-year-old woman with history of head and neck cancer and nonhealing PEG tube for several years. I agree with treating again with antibiotics because of signs of infection given some purulent drainage as well as the CAT scan findings and some fullness around the site on physical exam. I would consider asking surgery to see the patient for any other possible recommendations about the site. The other concern with PEG sites in patients with history of head and neck cancer is seeding with tumor cells, may be reasonable to have surgery for either biopsy of the area or breast cytology if they feel this is appropriate. Once tumor seeding has been ruled out and infection treated, sometimes applying silver nitrate to the gastrocutaneous fistulous tract can help close the site. As far as the dilated biliary system, the liver tests are normal and this is not unusual, especially in patient who has been on some pain killers for head and neck cancer. I do not think this represents acute biliary tract disease.
[2018-08-16] MEDS: PIPERACILLIN/TAZOBACTAM 3.375 GM in DEXTROSE 5% 100 ML IV SCH ×3 (00:23→17:20)
[2018-08-16] MEDS: LEVOTHYROXINE SODIUM 25 MCG TABLET PO SCH (02:43)
[2018-08-16 07:05] LABS: Hematocrit (blood only) 31.2 % (37-47); Hemoglobin 10.4 g/dL (12.0-16.0); Mean Corpuscular Hgb Conc 33.3 g/dL (32-36); Mean Corpuscular Volume 91.5 fL (80-100); Mean Platelet Volume 9.3 fL (7.4-10.4); Platelet Count 162 K/uL (130-400); RDW Coefficient of Variation 15.7 % (11.5-14.5); RDW Standard Deviation 52.6 fL (36.4-46.3); Red Blood Count 3.41 M/uL (4.2-5.4); White Blood Count 2.44 K/uL (4.8-10.8)
[2018-08-16 07:36] LABS: Folate (Folic Acid) 18.09 ng/ml (>5.38)
[2018-08-16 07:45] LABS: Albumin Level 2.5 gm/dl (3.4-5.0); BUN Creatinine Ratio 9.2 (10-20); Bilirubin Direct 0.2 mg/dl (0-0.2); Calcium 6.6 mg/dl (8.5-10.1); Creatinine Clr Calc Pharmacy 79.1 ml/min; Est GFR (African American) 108.1; Est GFR (Non-African American) 93.2; Magnesium 1.7 mg/dl (1.8-2.4); Potassium 3.7 mmol/L (3.5-5.1)
[2018-08-16 07:56] LABS: Albumin Globulin Ratio 1.1 (0.9-2); Bilirubin,Total 0.7 mg/dl (0.2-1); Globulin 2.2 gm/dl (2.5-4.0); Phosphorus 2.8 mg/dl (2.5-4.9); Total Protein 4.7 gm/dl (6.4-8.2)
[2018-08-16] MEDS: dexAMETHasone 1 MG TAB PO SCH (08:08)
[2018-08-16] MEDS: CALCIUM 600MG + VIT D 400 IU TAB PO SCH ×2 (08:08→21:18)
[2018-08-16] MEDS: POTASSIUM CHLORIDE IV SCH (08:08)
[2018-08-16] MEDS: PANTOprazole 40 MG TAB PO SCH (08:08)
[2018-08-16] MEDS: D5W AND LACTATED RINGERS IV SCH (08:08)
[2018-08-16] MEDS: LORazepam 1 MG TAB PO SCH ×4 (08:08→22:45)
[2018-08-16] MEDS: LEVALBUTEROL HCL 0.63 MG/3 ML NEB NEB PRN (09:39)
--- NOTE | 2018-08-16 10:58 | Gastroenterology Progress Note ---
Date of Service August 16, 2018 Assessment & Plan (1) Abdominal wall cellulitis: 57 year old female with head/neck CA treated through [place] - GI asked to evaluate for nonhealing PEG tube for several years. She has had fragmented care, without PCP, oncologist but notes recurrence of disease and plan for radiation in a few weeks. - Would recommend MRCP imaging given mild right sided pain, gallstones, biliary dilation - Would recommend full course of antibiotics for cellulitis - No plan for EGD - Discussed w/ surgery due to concern for non-closure, tract seeding - Will need to establish with PCP - Will need to review all records once available - Pt would like her care managed through one group - She wants to follow with [facility] - GI will review MRCP. Thank you for allowing us to participate in the care of this patient. Please call with any acute changes, questions or concerns. Please see addendum below with additional recommendation from my supervising physician. Present on Admission?: Yes Supervising Physician Co-Signing Physician Notes Myron seen and examined the patient with NICOLE Prieto whose note reflects our findings and plan. Subjective Pt was seen and evaluated, chart reviewed. NPO for swallow study. Has mild right sided pain/pressure. Notes since admission there has been no significant peg site pain, drainage. There is bruising near peg sight. She has had fragmented care. No PCP. Diagnosed w/ recurrent head/neck CA. No current oncologist. Plans for radiation therapy on the 08/24/18 CT: There is no evidence of metastatic disease in the chest, abdomen, or pelvis.There is no airspace consolidation or pleural effusion.Cholelithiasis.A gastrostomy tube tract containing gas and fluid is noted within the ventral abdominal wall. There is mild thickening, enhancement, and stranding involving the tract and infection is not excluded. Correlation with clinical findings and direct visualization is recommended. There is mild intrahepatic biliary ductal dilatation. This is of indeterminant significance and correlation with clinical findings and liver function studies will be required. Review of Systems Constitutional: no fever and no chills Respiratory: no cough and no dyspnea Cardiovascular: no chest pain, no radiating jaw, neck or arm pain and no dyspnea on exertion Gastrointestinal: + abdominal pain; no belching, no heartburn, no coffee ground emesis, no dysphagia, no blood in stools and no melena Physical Exam Constitutional: WD/WN, vitals as above Respiratory: normal respiratory effort, lungs clear to auscultation Cardiovascular: RRR, no murmur, no edema Gastrointestinal (Abdomen): Inspection/Auscultation: normal bowel sounds Percussion/Palpation: abdomen soft; no guarding and abdomen not rigid There is no drainage appreciated at PEG site location. There is no significant induration or erythema. There is mild fullness w/ palpation of the tract. There is notable bruising about 3 CM below the site. Skin: no rashes, warm and dry Results & Data Vital Signs (Past 12 Hours) Vital Signs Temp Pulse Pulse Resp BP Pulse Ox 08/16/18 09:40 78 18 98 08/16/18 09:00 73 08/16/18 07:26 36.7 C 81 18 118/79 98 08/16/18 03:09 36.9 C 81 16 95/58 L 98 08/16/18 00:31 87 08/15/18 23:16 36.8 C 84 16 98/60 L 97
--- NOTE | 2018-08-16 13:31 | Fluoroscopy Report ---
MODIFIED BARIUM SWALLOW CLINICAL HISTORY: Determine swallow function. History of head and neck cancer. COMPARISON STUDY: CT of the neck August 15, 2018. FLUOROSCOPY TIME: 3.2 minutes. FINDINGS: Multiple episodes of a small amount of silent tracheal aspiration were noted within liquids , nectar thick liquids, pudding and crackers with paste. Thickening of the right aryepiglottic fold w as noted. Mass effect upon the right hypopharynx was noted. This is better depicted on CT of August 15, 2018. IMPRESSION: 1. Multiple episodes of a small amount of silent tracheal aspiration with each consistency. 2. Thickening of the right aryepiglottic fold and mass effect upon the right aspect of the hypopharyn x, better depicted on CT of August 15, 2018. 3. Full recommendations by speech pathology to follow. Electronically signed by: Abhishek Beltran M.D. 08/16/2018 1:30 PM
--- NOTE | 2018-08-16 14:48 | Surgery Consultation ---
Date of Consultation August 16, 2018 Assessment & Plan (1) PEG (percutaneous endoscopic gastrostomy) status: 57 yo female with history of head and neck cancer, ?silent aspiration, history of PEG which is nonhealing since removal 2 years ago. There is no sign of cellulitis around the site, though imaging is concerning for some subcutaneous inflammation, so reasonable to treat as such with course of abx. You do have to consider possible tumor seeding in this scenario when PEG site has not healed, however there are no external abnormalities noted to biopsy, could consider EGD for further assessment. - Abx for possible PEG site cellulitis - Consider swallow evaluation if no recent evaluations available - Discussed potential treatment options for failure of PEG site to heal, including observation, endoscopic options for clipping (would defer to GI for any potential options) and surgical wedge resection of the site. However, patient is currently stable and no significant distress from the fistula so would prefer to discuss cancer treatment with her oncologist and ENT to determine the likelihood of worsening dysphagia and need for enteral access again, as these procedures could be potentially be completed at the same time. I think it is very reasonable to have evaluation at [facility] and coordinate care within one facility, which is what the patient prefers. I would be glad to further assist from a surgical standpoint if desired. - Recommend MRCP to further assess CBD dilation (GI also evaluating the patient for the above as well) History of Present Illness Reason for Consultation: Possible PEG site infection Attending Physician: Satnam Rojas MD History of Present Illness Pt is a 57 yo female with a history of head and neck cancer, initially diagnosed approximately 3 years ago and pt states she is s/p radiation and chemotherapy. Current future cancer treatment plans are uncertain. Pt has seen various providers but ultimately wishes to have further treatment at [facility] (she has been evaluated there in the past as well). She had a PEG tube placed by IR approximately 3 years ago and this was removed per the patient report 2 years ago. The PEG site has not yet healed and continues to have drainage. Part of the reason she presented was for a large bruise on her abdomen. She states she has a clip in her stomach but does not believe this was to try and treat the persistent fistula. She was treated at [place] a few weeks ago and treated for a PEG site infection. She has a scant amount of drainage from the site (today I saw one dot of drainage) but she states this fluctuates, and has decreased since she has not been moving much the past couple of days. She has likely silent asp iration (though I was not able to personally review recent swallow evaluation which she says was completed), but she states she is supposed to have thickened liquids. Incidentally, she also has CBD dilation on imaging. Allergies Allergy/AdvReac Type Severity Reaction Status Date / Time omeprazole [From Prilosec] Allergy Rash Verified 08/15/18 03:38 prednisone Allergy Unknown Verified 08/15/18 03:38 Home Medications Home Medications Medication Instructions Recorded Confirmed Type dexamethasone See Rx Instructions .ROUTE .COMPLEX 08/15/18 08/15/18 History levothyroxine 37.5 mcg PO DAILY 08/15/18 08/15/18 History lorazepam [Ativan] 1 mg PO TID 08/15/18 08/15/18 History oxycodone 15 mg PO Q4H PRN 08/15/18 08/15/18 History pantoprazole 40 mg PO DAILY 08/15/18 08/15/18 History albuterol sulfate 3 mg INHALATION Q4H PRN 08/16/18 08/16/18 History albuterol sulfate [Ventolin HFA] 2 puff INHALATION Q4H PRN 08/16/18 08/16/18 History Patient History Medical History Cancer of neck Social History Preferred Language: Nepali Communication Ability: Effective Processing Specialist Required: No Beliefs That Will Affect Care: [facility] Current Living Situation: Alone Other Information That Helps Us Care for You: No Feels Safe at Home: Yes Safety Concerns: Feels Safe At This Time Smoking Status: Never smoker Hx Alcohol Use: No Hx Substance Use: No Review of Systems Constitutional: no fever and no chills Respiratory: no cough and no dyspnea Cardiovascular: no chest pain Gastrointestinal: See HPI Physical Exam Constitutional: no acute distress Eyes: PERRL, conjunctivae normal, anicteric sclerae ENMT: external ear and nose normal, oropharynx normal Neck: normal visual inspection Respiratory: normal respiratory effort Cardiovascular: Rate/Rhythm: regular rate Gastrointestinal (Abdomen): Soft, nontender, nondistended, pinpoint opening at prior PEG site, scant drainage from site; no external masses, large bruise inferior to PEG site Results & Data Vital Signs (Past 12 Hours) Vital Signs Temp Pulse Pulse Resp BP Pulse Ox 08/16/18 11:41 36.7 C 89 20 90/57 L 99 08/16/18 09:40 78 18 98 08/16/18 09:00 73 08/16/18 07:26 36.7 C 81 18 118/79 98 08/16/18 03:09 36.9 C 81 16 95/58 L 98
--- NOTE | 2018-08-16 18:24 | Magnetic Resonance Report ---
MRCP CLINICAL HISTORY: Right upper quadrant abdominal pain. COMPARISON STUDY: Abdominal CT dated 08/15/2018. TECHNIQUE: Abdominal MRCP is performed utilizing various T2-weighted sequences in the axial and coron al planes. IV contrast was not administered for this examination. 3-D reformats are created and asses sed. FINDINGS: There is a large calcified gallstone which measures up to 4.6 cm. There is no MRI evidence of acute c holecystitis. There is mild intrahepatic biliary ductal dilatation. The common bile duct measures up to 7 mm. No filling defects are identified to suggest choledocholithiasis. The pancreatic duct is nor mal in caliber. The hepatic parenchyma is normal as imaged. The spleen, pancreas, kidneys, and right adrenal gland ar e grossly normal. An indeterminant 1.3 cm left adrenal nodule is again noted. There is no abdominal a scites. No pleural effusion is identified. No bowel obstruction is seen. An inflamed gastrostomy tube tract is again suggested in the upper abdominal wall. IMPRESSION: 1. There is a large gallstone, with no MRI evidence of acute cholecystitis. 2. There is mild intrahepatic biliary ductal dilatation which is of indeterminate significance. 3. There is no evidence of choledocholithiasis. 4. An inflamed appearing gastrostomy tube tract is again seen in the upper abdominal wall. Dictated: 08/16/2018 5:46 PM Transcribed: 08/16/2018 6:23 PM Wanda [id number] [email or web address] Electronically signed by: Devan Meade M.D. 08/16/2018 6:35 PM
--- NOTE | 2018-08-16 20:22 | Hospitalist Progress Note ---
Date of Service August 16, 2018 Assessment & Plan (1) Aspiration into lower respiratory tract: Previously diagnosed with silent aspiration and was recommended to thicken liquids. Concerned about aspiration at time of presentation. No fever. No infiltrates on chest x-ray or CT of chest. CT of neck showed large right cervical mass and other findings as noted. Seen by [facility] [employer]. Video fluoroscopy performed today showed silent aspiration of small amounts of thin liquid, thickened liquids, and solids. Dysfunction of right vocal cord was noted. [employer] recommends continued oral intake with aspiration precautions. Patient is at risk for recurrent pulmonary issues. Importance of ongoing aspiration precautions emphasized. (2) Abdominal wall cellulitis: Had PEG placed during initial management of head and neck Ca. It was removed about 2 years ago. Has had bloody drainage for past several months. CT of abdomen demonstrated: "A gastrostomy tube tract containing gas and fluid is noted within the ventral abdominal wall. There is mild thickening, enhancemen t, and stranding involving the tract and infection is not excluded." Culture of drainage obtained and is growing gram negative bacilli. Seen in consultation by General Surgery. No need for I&D or other surgical intervention at this time. Continue IV piperacillin / tazobactam pending culture results. (3) Hypotension: Intermittent systolic BP's in 90's. Patient reports that her blood pressures normally run higher. Does not appear to be septic or volume depleted. Fasting cortisol 1.91. Has been on intermittent steroid therapy and is currently on dexamethasone taper. Low cortisol at this time could simply be to adrenal suppression secondary to dexamethasone. However, important to rule out adrenal insufficiency. Cortrosyn stim test discussed with patient, but she is concerned about potential side effects. Will discuss further before proceeding. (4) Hypokalemia: Serum potassium was 3.0 at time of admission. Received replacement. Potassium this morning = 3.7. Not taking any diuretics or other potassium lowering agents. Hypokalemia probably secondary to inadequate oral intake. Replace, follow. (5) Hypomagnesemia: Serum magnesium at time of admission was 0.8. Received replacement. Magnesium this morning was 1.7. Replace, follow. (6) Hypocalcemia: Serum calcium was 5.9 at time of admission with albumin of 2.8. Ionized calcium was 0.80. Received replacement. Calcium today = 6.6 and ionized calcium = 0.86. 25 hydroxy vitamin D level 10.9. Will start vitamin D replacement with a modest dose of 1000 international units daily because of potential risk of hypercalcemia from underlying head and neck cancer. Follow. (7) Protein calorie malnutrition: Significant weight loss + low albumin. Racquet Maker consulted. (8) Head and neck cancer: Followed at [facility]. Now with recurrent disease right neck. Scheduled to restart radiation therapy next week. Attempted to contact Dr. Reaves at [facility] to coordinate care- waiting for response. (9) Adrenal nodule: 12 mm left adrenal nodule noted on CT of abdomen. Nodule has benign appearance, but needs to be monitored in light of known head & neck Ca. (10) DVT prophylaxis: No anticoagulants at this time due to bloody drainage from old PEG site. SCD's. Ambulate. (11) Discharge planning issues: Anticipated discharge to home. Scheduled for radiation therapy at [facility] next week. Son Sharath called this evening and was given update with patient's consent. Lab results, diagnostic imaging studies, and plan discussed. Subjective Recheck for multiple problems. Patient seen in their room around 1600. Video swallowing study performed earlier today by [facility] [employer] [facility]. Noted to have right vocal cord dysfunction and small amount of silent aspiration of thin liquids, thickened liquids, and solid food. [employer]DUIT [employer]ER felt that oral intake with ongoing aspiration precautions would be most appropriate. MRCP recommended by GI because of dilated common bile duct noted on CT. Patient is waiting for that study and is anxious to resume her diet. No fever. Occasional mild cough. No dyspnea. Drainage from old gastrostomy feeding tube site decreased. Review of Systems: Constitutional- no fever. Cardiac- no chest pain. Pulmonary- as noted above. GI- no nausea, vomiting, diarrhea, melena, hematochezia. - no urinary symptoms. Otherwise, as noted above. Physical Exam Constitutional: no acute distress ENMT: Mouth: + muffled voice Neck: + submandibular swelling (right cervical mass, firm) Respiratory: no respiratory distress Auscultation: + wheezes (mild, diffuse) Cardiovascular: Rate/Rhythm: regular rate and regular rhythm Heart Sounds: no gallop, no murmur and no cardiac rub Vessels: no JVD Extremities: no calf tenderness and no edema Gastrointestinal (Abdomen): normal bowel sounds, soft, nontender, no hepatosplenomegaly Inspection/Auscultation: + abdomen abnormal to inspection (old PEG site in epigastrium with minimal drainage; ecchymosis ) Skin: no rashes, warm and dry Psychiatric: Orientation: alert and oriented x 3 Results & Data Vital Signs (Past 12 Hours) Vital Signs Temp Pulse Pulse Resp BP BP Pulse Ox 08/16/18 19:02 36.8 C 81 20 93/66 L 96 08/16/18 16:00 84 08/16/18 15:00 36.5 C 87 18 99/72 L 96 08/16/18 11:41 36.7 C 89 20 90/57 L 99 08/16/18 09:40 78 18 98 08/16/18 09:00 73 Laboratory Results Laboratory Results - last 24 hr 08/16/18 08/16/18 08/16/18 06:40 06:40 06:40 WBC 2.44 L RBC 3.41 L Hgb 10.4 L Hct 31.2 L MCV 91.5 MCH 30.5 MCHC 33.3 RDW Std Deviation 52.6 H RDW Coeff of Ainsley 15.7 H Plt Count 162 MPV 9.3 Sodium 142 Potassium 3.7 Chloride 107 Carbon Dioxide 30 Anion Gap 5.0 BUN 7 Creatinine 0.71 Est Cr Clr Drug Dosing 79.1 Est GFR ( Amer) 108.1 Est GFR (Non-Af Amer) 93.2 BUN/Creatinine Ratio 9.2 L Glucose 106 H Calcium 6.6 L Ionized Calcium Phosphorus 2.8 Magnesium 1.7 L Total Bilirubin 0.7 Direct Bilirubin 0.2 AST 21 ALT 28 Alkaline Phosphatase 39 L Total Protein 4.7 L Albumin 2.5 L Globulin 2.2 L Albumin/Globulin Ratio 1.1 Vitamin B12 305 Folate 18.09 TSH 1.180 Random Cortisol 08/16/18 08/16/18 08/16/18 06:40 06:40 13:29 WBC RBC Hgb Hct MCV MCH MCHC RDW Std Deviation RDW Coeff of Ainsley Plt Count MPV Sodium Potassium Chloride Carbon Dioxide Anion Gap BUN Creatinine Est Cr Clr Drug Dosing Est GFR ( Amer) Est GFR (Non-Af Amer) BUN/Creatinine Ratio Glucose Calcium Ionized Calcium 0.86 L Phosphorus Magnesium 1.8 Total Bilirubin Direct Bilirubin AST ALT Alkaline Phosphatase Total Protein Albumin Globulin Albumin/Globulin Ratio Vitamin B12 Folate TSH Random Cortisol 1.91
[2018-08-16] MEDS: OXYCODONE HCL IR 5 MG TAB (IMMEDIATE RELEASE) PO PRN (21:18)
[2018-08-16] MEDS: CALCIUM CARBONATE 1250MG TAB PO SCH (22:39)
[2018-08-16] MEDS: MAGNESIUM OXIDE 400 MG TAB PO SCH (22:39)
[2018-08-17] MEDS: PIPERACILLIN/TAZOBACTAM 3.375 GM in DEXTROSE 5% 100 ML IV SCH ×3 (00:56→16:14)
[2018-08-17] MEDS: LEVALBUTEROL HCL 0.63 MG/3 ML NEB NEB PRN ×2 (01:32→19:51)
[2018-08-17] MEDS: OXYCODONE HCL IR 5 MG TAB (IMMEDIATE RELEASE) PO PRN ×2 (03:47→17:05)
[2018-08-17] MEDS: LEVOTHYROXINE SODIUM 25 MCG TABLET PO SCH (06:14)
[2018-08-17 07:08] LABS: BUN Creatinine Ratio 11.4 (10-20); Calcium 7.3 mg/dl (8.5-10.1); Creatinine Clr Calc Pharmacy 77.6 ml/min; Est GFR (African American) 106.2; Est GFR (Non-African American) 91.7; Magnesium 1.7 mg/dl (1.8-2.4); Potassium 3.1 mmol/L (3.5-5.1)
[2018-08-17] MEDS: LORazepam 1 MG TAB PO SCH ×3 (08:47→20:37)
[2018-08-17] MEDS: POTASSIUM CHLORIDE 20 MEQ TABCR PO SCH ×2 (08:47→20:37)
[2018-08-17] MEDS: POTASSIUM CHLORIDE / WTR 10 MEQ/100 ML PLCT IV SCH ×2 (08:47→10:52)
[2018-08-17] MEDS: PANTOprazole 40 MG TAB PO SCH (08:47)
[2018-08-17] MEDS: CALCIUM CARBONATE 1250MG TAB PO SCH ×3 (08:47→20:37)
[2018-08-17] MEDS: CALCIUM 600MG + VIT D 400 IU TAB PO SCH ×2 (08:48→20:37)
[2018-08-17] MEDS: MAGNESIUM OXIDE 400 MG TAB PO SCH ×2 (08:48→20:37)
[2018-08-17] MEDS: dexAMETHasone 1 MG TAB PO SCH (08:48)
[2018-08-17] MEDS: CHOLECALCIFEROL 1,000 UNITS TAB PO SCH (08:55)
--- NOTE | 2018-08-17 10:42 | Gastroenterology Progress Note ---
Date of Service August 17, 2018 Assessment & Plan (1) Abdominal wall cellulitis: 57 year old female with head/neck CA treated through [place] - GI asked to evaluate for nonhealing PEG tube for several years. She has had fragmented care, without PCP, oncologist but notes recurrence of disease and plan for radiation in a few weeks. MRCP without evidence of CBD obstruction, LFTs unremarkable, PEG site pain clinically improving w/ ABX therapy, culture pending. - Follow culture, would recommend full course of antibiotics for cellulitis - Discussed w/ surgery due to concern for non-closure, tract seeding who did evaluate the patient - No plan for EGD - No current indication to take to OR - Will need to establish with PCP - Will need to review all records once available - Pt would like her care managed through one group - She wants to follow with [place] - I offered to call and discuss her case with other outside providers, she asked that I don't do this - to sign off. Thank you for allowing us to participate in the care of this patient. Please call with any acute changes, questions or concerns. Please see addendum below with additional recommendation from my supervising physician. Supervising Physician Co-Signing Physician Notes Late entry: Patient was seen on 08/17 and examined the patient with NICOLE Prieto whose note reflects our findings and plan. Subjective Pt was seen and evaluated, chart reviewed. No acute events noted overnight. Feels well. No abd pain. No black/bloody stools. No output from PEG tract. Does have mild pain near PEG site. MRCP: There is a large gallstone, with no MRI evidence of acute cholecystitis.There is mild intrahepatic biliary ductal dilatation which is of indeterminate significance.There is no evidence of choledocholithiasis. An inflamed appearing gastrostomy tube tract is again seen in the upper abdominal wall. Review of Systems Constitutional: no fever, no chills and no fatigue Respiratory: no cough, no chest congestion and no dyspnea on exertion Cardiovascular: no chest pain, no chest pain at rest and no palpitations Gastrointestinal: no abdominal pain, no belching, no blood in stools and no melena Physical Exam Constitutional: WD/WN, vitals as above Respiratory: normal respiratory effort, lungs clear to auscultation Cardiovascular: Rate/Rhythm: regular rate and regular rhythm Gastrointestinal (Abdomen): Inspection/Auscultation: normal bowel sounds Percussion/Palpation: + abdomen tender and abdomen soft; no guarding and abdomen not rigid Skin: no rashes, warm and dry Results & Data Vital Signs (Past 12 Hours) Vital Signs Temp Pulse Pulse Resp BP BP Pulse Ox 08/17/18 08:10 36.8 C 87 18 108/76 100 08/17/18 04:30 36.3 C L 86 18 94/65 L 96 08/17/18 03:40 36.6 C 83 18 92/58 L 96 08/17/18 01:32 88 16 98 08/17/18 00:00 91 H 08/16/18 23:10 36.8 C 99 H 20 113/82 93
--- NOTE | 2018-08-17 11:04 | Surgery Progress Note ---
Date of Service August 17, 2018 Assessment & Plan (1) PEG (percutaneous endoscopic gastrostomy) status: 57 yo female with history of head and neck cancer, ?silent aspiration, history of PEG which is nonhealing since removal 2 years ago. There is no sign of cellulitis around the site, though imaging is concerning for some subcutaneous inflammation, so reasonable to treat as such with course of abx. You do have to consider possible tumor seeding in this scenario when PEG site has not healed, however there are no external abnormalities noted to biopsy. - Wound culture showing Klebsiella pansensitive - Continue Abx for possible PEG site cellulitis - Discussed potential treatment options for failure of PEG site to heal, including observation, endoscopic options for clipping (would defer to GI for any potential options) and surgical wedge resection of the site. However, patient is currently stable and no significant distress from the fistula so would prefer her oncologist and ENT doctors from [facility] to be involved to determine further treatment/management options given her recurrence and possible need for enteral nutrition. Patient prefers coordination of care within one facility. - Should be discharged with CD of imaging results and reformation of images - Our services signing off, please call with any questions or concerns Dr. Tang has seen and examined patient, agrees with above. Please see addendum for further recommendations/plan. Supervising Physician Co-Signing Physician Notes I have seen and evaluated the patient and reviewed the medical record. I agree with the documentation as provided in this note by Evelyn Ventura PA-C. Subjective patient states she notices drainage from PEG site after eating/drinking. And will notice increase discomfort when she is upset/crying. Denies of abdominal pain. denies of nausea or vomiting. No acute events overnight, no fevers. Physical Exam Constitutional: WD/WN, vitals as above no acute distress and not ill appearing Respiratory: normal respiratory effort; no respiratory distress Gastrointestinal (Abdomen): Inspection/Auscultation: abdomen normal to inspection; abdomen not distended Percussion/Palpation: abdomen soft; abdomen nontender, no guarding and abdomen not rigid PEG site with optifoam dressing present, there is clear/bilious output on the dressing. No purulence expressed. No surrounding induration. Mild skin erythema likely from the drainage but no significant erythema. Skin: no rashes, warm and dry Psychiatric: A+Ox3, euthymic affect Results & Data Vital Signs (Past 12 Hours) Vital Signs Temp Pulse Pulse Resp BP BP Pulse Ox 08/17/18 08:10 36.8 C 87 18 108/76 100 08/17/18 04:30 36.3 C L 86 18 94/65 L 96 08/17/18 03:40 36.6 C 83 18 92/58 L 96 08/17/18 01:32 88 16 98 08/17/18 00:00 91 H 08/16/18 23:10 36.8 C 99 H 20 113/82 93 Laboratory Results 08/17/18 08/17/18 08/17/18 Range/Units 08:46 05:51 05:51 Sodium 143 (136-145) mmol/L Potassium 3.1 L D (3.5-5.1) mmol/L Chloride 110 H (98-107) mmol/L Carbon Dioxide 28 (21-32) mmol/L Anion Gap 5.0 (3-11) BUN 8 (7-18) mg/dl Creatinine 0.72 (0.6-1.2) mg/dl Est Cr Clr Drug Dosing 77.6 ml/min Est GFR ( Amer) 106.2 Est GFR (Non-Af Amer) 91.7 BUN/Creatinine Ratio 11.4 (10-20) Glucose 95 (70-99) mg/dl Calcium 7.3 L (8.5-10.1) mg/dl Ionized Calcium 1.04 L Cancelled Magnesium 1.7 L (1.8-2.4) mg/dl 08/16/18 Range/Units 13:29 Sodium (136-145) mmol/L Potassium (3.5-5.1) mmol/L Chloride (98-107) mmol/L Carbon Dioxide (21-32) mmol/L Anion Gap (3-11) BUN (7-18) mg/dl Creatinine (0.6-1.2) mg/dl Est Cr Clr Drug Dosing ml/min Est GFR ( Amer) Est GFR (Non-Af Amer) BUN/Creatinine Ratio (10-20) Glucose (70-99) mg/dl Calcium (8.5-10.1) mg/dl Ionized Calcium Magnesium 1.8 (1.8-2.4) mg/dl Diagnostic Findings Source: Abdomen, Left Upper Quadrant OV Order: Ordered: Surf Wnd Cul/Sm Comments: Comment peg tube site Procedure Result Verified Site Gram Stain Final 08/15/18 Gram Stain Result Rare Epithelial Cells No WBCs Seen No Organisms Seen Surface Wound Culture Final 08/17/18 Organism 1 Klebsiella pneumoniae Quantity Rare Sens No Sensitivities to Follow +MixWound Plus Low Counts of Probable Skin Ivy Please see culture number [id number] for sensitivities.
--- NOTE | 2018-08-17 17:19 | Hospitalist Progress Note ---
Date of Service August 17, 2018 Assessment & Plan (1) Aspiration into lower respiratory tract: Previously diagnosed with silent aspiration and was recommended to thicken liquids. Concerned about aspiration at time of presentation. No fever. No infiltrates on chest x-ray or CT of chest. CT of neck showed large right cervical mass and other findings as noted. Seen by SATIN FINISHER. Video fluoroscopy performed today showed silent aspiration of small amounts of thin liquid, thickened liquids, and solids. Dysfunction of right vocal cord was noted. SATIN FINISHER recommends continued oral intake with aspiration precautions. Patient is at risk for recurrent pulmonary issues. Importance of ongoing aspiration precautions emphasized. (2) Abdominal wall cellulitis: Had PEG placed during initial management of head and neck Ca. It was removed about 2 years ago. Has had bloody drainage for past several months. CT of abdomen demonstrated: "A gastrostomy tube tract containing gas and fluid is noted within the ventral abdominal wall. There is mild thickening, enhancemen t, and stranding involving the tract and infection is not excluded." Culture of drainage obtained and is growing gram negative bacilli. Seen in consultation by General Surgery. No need for I&D or other surgical intervention at this time. Excision of tract could be considered, but not at this time. May be concerns about healing due to nutritional status. Wound culture growing Klebsiella. Continue IV piperacillin / tazobactam, then transition to oral therapy with amox / clav. (3) Hypotension: Intermittent systolic BP's in 90's. Patient reports that her blood pressures normally run higher. Does not appear to be septic or volume depleted. Fasting cortisol 1.91. Has been on intermittent steroid therapy and is currently on dexamethasone taper. Low cortisol at this time could simply be to adrenal suppression secondary to dexamethasone. However, important to rule out adrenal insufficiency. Cortrosyn stim test discussed with patient, but she is concerned about potential side effects. She prefers to not have testing for possible adrenal insufficiency at this time. Signs / symptoms of adrenal insufficiency and need for immediate medical attention were discussed. (4) Hypokalemia: Serum potassium was 3.0 at time of admission. Not taking any diuretics or other potassium lowering agents. Hypokalemia probably secondary to inadequate oral intake. Received replacement. Potassium this morning = 3.1. Replace, follow. (5) Hypomagnesemia: Serum magnesium at time of admission was 0.8. Received replacement. Magnesium this morning was 1.7. Replace, follow. (6) Hypocalcemia: Serum calcium was 5.9 at time of admission with albumin of 2.8. Ionized calcium was 0.80. Received replacement. Calcium today = 6.6 and ionized calcium = 0.86. 25 hydroxy vitamin D level 10.9. Will start vitamin D replacement with a modest dose of 1000 international units daily because of potential risk of hypercalcemia from underlying head and neck cancer. Follow. (7) Protein calorie malnutrition: Significant weight loss + low albumin. Shipping Hand consulted. (8) Head and neck cancer: Followed at [facility], but no longer has a Medical Oncologist Now with recurrent disease right neck. Scheduled to restart radiation therapy next week. Attempted to contact Dr. Reaves (Radiation Oncology) at [facility] to coordinate care- waiting for response. Pt shared reports from recent CT and PET. Right cervical mass has progressed from 3.1 to 5 cm in greatest diameter since 06/07/18. Right IJ involvement was noted in May. (9) Cholelithiasis: Large gall stone noted on CT without evidence of cholecystitis. Cholelithiasis diagnosed years ago and pt opted not to have cholecystectomy. LFT's OK. CBD elevated. GI consulted. No biliary tract pathology noted on MRCP. No need for further evaluation / management at this time. Patient will be provided with copies of her labs and diagnostic imaging at time of discharge for continuity of care. (10) Adrenal nodule: 12 mm left adrenal nodule noted on CT of abdomen. Nodule has benign appearance, but needs to be monitored in light of known head & neck Ca. It was noted on CT at [facility] 06/07/18 and measured 10 mm at that time. (11) DVT prophylaxis: No anticoagulants at this time due to bloody drainage from old PEG site. SCD's. Ambulate. (12) Discharge planning issues: Anticipated discharge to home. Scheduled for radiation therapy at [facility] next week. Concerned about pt's fragment care and lack of PCP. Need for comprehensive cancer management discussed. Advised that she would benefit from PCP close to home to coordinate care and assist with medical problems not directly related to her cancer care. Subjective Recheck for multiple problems. Patient seen in their room around 1530. Patient worried about her recurrent head and neck cancer. Scheduled for f/u radiation therapy next week at [facility], but considering another opinion elsewhere. She is afraid that she will not be able to tolerate more radiation. She is wondering if she should get more chemo. Has questions regarding primary Ca. Wondering if she should stay on dexamethasone- feels better whenever it is restarted and gets more SOB as it is tapered and discontinued. No fever. Occasional mild cough. No dyspnea. Drainage from old gastrostomy feeding tube site worse today. Review of Systems: Constitutional- no fever. Cardiac- no chest pain. Pulmonary- as noted above. GI- no nausea, vomiting, diarrhea, melena, hematochezia. - no urinary symptoms. Otherwise, as noted above. Physical Exam Constitutional: no acute distress ENMT: Mouth: + muffled voice Neck: + submandibular swelling (right cervical mass, firm) Respiratory: no respiratory distress Auscultation: + wheezes (mild, diffuse) Cardiovascular: Rate/Rhythm: regular rate and regular rhythm Heart Sounds: no gallop, no murmur and no cardiac rub Vessels: no JVD Extremities: no calf tenderness and no edema Gastrointestinal (Abdomen): normal bowel sounds, soft, nontender, no hepatosplenomegaly Inspection/Auscultation: + abdomen abnormal to inspection (old PEG site in epigastrium with purulent drainage; ecchymosis mid abdomen) Skin: no rashes, warm and dry Psychiatric: Orientation: alert and oriented x 3 Results & Data Vital Signs (Past 12 Hours) Vital Signs Temp Pulse Resp BP Pulse Ox 08/17/18 12:33 36.7 C 96 H 18 104/70 92 08/17/18 08:10 36.8 C 87 18 108/76 100 Laboratory Results Laboratory Results - last 24 hr 08/17/18 08/17/18 08/17/18 05:51 05:51 08:46 Sodium 143 Potassium 3.1 L D Chloride 110 H Carbon Dioxide 28 Anion Gap 5.0 BUN 8 Creatinine 0.72 Est Cr Clr Drug Dosing 77.6 Est GFR ( Amer) 106.2 Est GFR (Non-Af Amer) 91.7 BUN/Creatinine Ratio 11.4 Glucose 95 Calcium 7.3 L Ionized Calcium Cancelled 1.04 L Magnesium 1.7 L
[2018-08-18] MEDS: PIPERACILLIN/TAZOBACTAM 3.375 GM in DEXTROSE 5% 100 ML IV SCH ×2 (00:14→08:00)
[2018-08-18] MEDS: OXYCODONE HCL IR 5 MG TAB (IMMEDIATE RELEASE) PO PRN (00:20)
[2018-08-18] MEDS: LEVOTHYROXINE SODIUM 25 MCG TABLET PO SCH (06:26)
[2018-08-18 07:27] LABS: Basophils # (auto) 0.04 K/uL (0-0.2); Basophils % (auto) 1.1 %; Eosinophils # (auto) 0.01 K/uL (0-0.5); Eosinophils % (auto) 0.3 %; Hematocrit (blood only) 33.8 % (37-47); Hemoglobin 11.1 g/dL (12.0-16.0); Immature Granulocytes # (auto) 0.09 K/uL (0.00-0.02); Immature Granulocytes % (auto) 2.4 %; Lymphocytes # (auto) 1.22 K/uL (1.2-3.4); Lymphocytes % (auto) 33.2 %; Mean Corpuscular Hgb Conc 32.8 g/dL (32-36); Mean Corpuscular Volume 92.1 fL (80-100); Mean Platelet Volume 8.8 fL (7.4-10.4); Monocytes # (auto) 0.48 K/uL (0.11-0.59); Neutrophils # (auto) 1.84 K/uL (1.4-6.5); Platelet Count 236 K/uL (130-400); RDW Standard Deviation 53.4 fL (36.4-46.3); Red Blood Count 3.67 M/uL (4.2-5.4); White Blood Count 3.68 K/uL (4.8-10.8)
[2018-08-18 08:00] LABS: BUN Creatinine Ratio 12.3 (10-20); Calcium 8.4 mg/dl (8.5-10.1); Creatinine Clr Calc Pharmacy 67.5 ml/min; Est GFR (African American) 89.5; Est GFR (Non-African American) 77.2; Magnesium 1.6 mg/dl (1.8-2.4); Potassium 3.9 mmol/L (3.5-5.1)
[2018-08-18] MEDS: LORazepam 1 MG TAB PO SCH (08:00)
[2018-08-18] MEDS: CHOLECALCIFEROL 1,000 UNITS TAB PO SCH (08:00)
[2018-08-18] MEDS: MAGNESIUM OXIDE 400 MG TAB PO SCH (08:00)
[2018-08-18] MEDS: CALCIUM CARBONATE 1250MG TAB PO SCH (08:00)
[2018-08-18] MEDS: PANTOprazole 40 MG TAB PO SCH (08:00)
[2018-08-18] MEDS: POTASSIUM CHLORIDE 20 MEQ TABCR PO SCH (08:00)
[2018-08-18] MEDS: CALCIUM 600MG + VIT D 400 IU TAB PO SCH (08:01)
[2018-08-18] MEDS: LEVALBUTEROL HCL 0.63 MG/3 ML NEB NEB PRN (08:59)
[2018-08-18] MEDS ORDERED: dexAMETHasone 4 MG TAB PO SCH (09:00)
--- NOTE | 2018-08-18 10:36 | Hospitalist Progress Note ---
Date of Service August 18, 2018 Assessment & Plan (1) Aspiration into lower respiratory tract: Previously diagnosed with silent aspiration and was recommended to thicken liquids. Concerned about aspiration at time of presentation. No fever. No infiltrates on chest x-ray or CT of chest. CT of neck showed large right cervical mass and other findings as noted. Seen by SWEATBAND PERFORATOR. Video fluoroscopy performed 08/16 showed silent aspiration of small amounts of thin liquid, thickened liquids, and solids. Dysfunction of right vocal cord was noted. SWEATBAND PERFORATOR recommends continued oral intake with aspiration precautions. Patient is at risk for recurrent pulmonary issues. Importance of ongoing aspiration precautions emphasized. (2) Abdominal wall cellulitis: Had PEG placed during initial management of head and neck Ca. It was removed about 2 years ago. Has had bloody drainage for past several months. CT of abdomen demonstrated: "A gastrostomy tube tract containing gas and fluid is noted within the ventral abdominal wall. There is mild thickening, enhancement, and stranding involving the tract and infection is not excluded." Culture of drainage obtained and is growing gram negative bacilli. Seen in consultation by General Surgery. No need for I&D or other surgical intervention at this time. Excision of tract could be considered, but not at this time. May be concerns about healing due to nutritional status. Wound culture growing Klebsiella pneumoniae, pansensitive. Received IV piperacillin / tazobactam, transition to oral therapy with amox / clav to complete 10 day course of therapy. (3) Hypotension: Intermittent systolic BP's in 90's. Patient reports that her blood pressures normally run higher. Does not appear to be septic or volume depleted. Fasting cortisol 1.91. Has been on intermittent steroid therapy and is currently on dexamethasone taper. Low cortisol at this time could simply be to adrenal suppression secondary to dexamethasone. However, important to rule out adrenal insufficiency. Cortrosyn stim test discussed with patient, but she is concerned about potential side effects. She prefers to not have testing for possible adrenal insufficiency at this time. Signs / symptoms of adrenal insufficiency and need for immediate medical attention were discussed. (4) Hypokalemia: Serum potassium was 3.0 at time of admission. Not taking any diuretics or other potassium lowering agents. Hypokalemia probably secondary to inadequate oral intake. Received replacement. Potassium this morning = 3.9. Discharge on KCl 20 mEq BID. Recheck labs in 1 week, then periodically thereafter. (5) Hypomagnesemia: Serum magnesium at time of admission was 0.8. Received replacement. Magnesium this morning was 1.6. Discharge on Mg oxide 400 mg BID. Recheck labs in 1 week, then periodically thereafter. (6) Hypocalcemia: Serum calcium was 5.9 at time of admission with albumin of 2.8. Ionized calcium was 0.80. Received replacement. 25 hydroxy vitamin D level 10.9. Will start vitamin D replacement with a modest dose of 1000 international units daily because of potential risk of hypercalcemia from underlying head and neck cancer. Calcium today = 8.4 and ionized calcium = 1.10. Discharge on calcium 500 mg + vitamin D 400 IU. Recheck labs in 1 week, then periodically thereafter. (7) Protein calorie malnutrition: Significant weight loss + low albumin. Finish Opener consulted. Patient indicates that she has been intolerant of supplements in past. Well balanced diet + ongoing support from nutrition team recommended. (8) Head and neck cancer: Followed at [facility], but no longer has a Medical Oncologist Now with recurrent disease right neck. Scheduled to restart radiation therapy next week. Attempted to contact Dr. Reaves (Radiation Oncology) at [facility] to coordinate care- waiting for response. Pt shared reports from recent CT and PET. Right cervical mass has progressed from 3.1 to 5 cm in greatest diameter since 06/07/18. Right IJ involvement was noted in May. (9) Cholelithiasis: Large gall stone noted on CT without evidence of cholecystitis. Cholelithiasis diagnosed years ago and pt opted not to have cholecystectomy. LFT's OK. CBD elevated. GI consulted. No biliary tract pathology noted on MRCP. No need for further evaluation / management at this time. (10) Adrenal nodule: 12 mm left adrenal nodule noted on CT of abdomen. Nodule has benign appearance, but needs to be monitored in light of known head & neck Ca. It was noted on CT at [facility] 06/07/18 and measured 10 mm at that time. (11) DVT prophylaxis: No anticoagulants at this time due to bloody drainage from old PEG site. SCD's. Ambulating. (12) Discharge planning issues: Discharge to home. Scheduled for radiation therapy at [facility] next week. Concerned about pt's fragment care and lack of PCP. Need for comprehensive cancer management discussed. May benefit from having Patient Navigator at her cancer center. Advised that she would benefit from PCP close to home to coordinate care and assist with medical problems not directly related to her cancer care. Subjective Recheck for multiple problems. Patient seen in their room around 10:00. Patient ready for discharge, but worried about her recurrent head and neck cancer. No fever. Occasional mild cough. No dyspnea. Drainage from old gastrostomy feeding tube site worse today. Drainage sometimes worse after eating and appears to contain gastric contents. Review of Systems: Constitutional- no fever. Cardiac- no chest pain. Pulmonary- as noted above. GI- no nausea, vomiting, diarrhea, melena, hematochezia. - no urinary symptoms. Otherwise, as noted above. Physical Exam Constitutional: no acute distress ENMT: Mouth: + muffled voice Neck: + submandibular swelling (right cervical mass, firm) Respiratory: no respiratory distress Auscultation: + wheezes (mild, diffuse) Cardiovascular: Rate/Rhythm: regular rate and regular rhythm Heart Sounds: no gallop, no murmur and no cardiac rub Vessels: no JVD Extremities: no calf tenderness and no edema Gastrointestinal (Abdomen): normal bowel sounds, soft, nontender, no hepatosplenomegaly Inspection/Auscultation: + abdominal wall ecchymosis (resolving); + abdomen abnormal to inspection (old PEG site in epigastrium with purulent drainage; no significant erythema) Skin: no rashes, warm and dry Psychiatric: Orientation: alert and oriented x 3 Results & Data Vital Signs (Past 12 Hours) Vital Signs Temp Pulse Pulse Resp BP Pulse Ox 08/18/18 09:04 69 18 95 08/18/18 07:16 36.7 C 89 16 107/71 96 08/18/18 04:06 36.6 C 80 18 92/61 L 97 08/18/18 00:00 95 H 08/17/18 23:34 36.6 C 94 H 20 94/65 L 96
--- NOTE | 2018-08-18 11:43 | Discharge Summary ---
Date of Service Date of Admission: 08/15/18 Date of Discharge: 08/18/18 Admission HPI Per Admitting Provider This is a 57-year-old female with past medical history significant for hypothyroidism, GERD, history of neck cancer diagnosed about 3-4 years ago, follows with [facility], had chemo and radiation initially and also had Keytruda but was stopped secondary to pneumonitis. Had recurrence of cancer in December 2017 as per patient. Patient says her oncologist at [facility]'s left to [place] and she was apparently supposed to have a different oncologist and that oncologist also left. Right now, she is only following radiation oncologist . Patient says she recently had PET scan and there is a plan for radiation starting the of this month, but the patient says she is not happy as meanwhile nothing was done.. I She thinks that she may go to [facility]. She is from [facility]. Last time as per patient she admitted to [facility] was about 3-4 weeks ago. She came to [place] to visit her son. Initially, she was on PEG tube, but the tube taken out about 2 years ago, but tract is not closed. She has some discomfort on the tract site .She is on regular diet, but she thickens the liquids. As per the ER, she could not thicken her liquid tonight and she seems that she aspirated, but when asked, she says she was able to thicken liquids, but she thought that she thinks she is aspirating silently, that is why she came to the hospital. Apparently, except for some mild abdominal discomfort at the tube site, the patient has no other complaints. The patient does not want to go back to [facility], does not want to go to [facility], the patient likes to get admitted here and observed. Denies any fever, chills. Currently, no shortness of breath, no cough, no headache, no blurred vision,no nausea, no vomiting. She says she recently had a bruise in her belly and was concerned about it, not on any antiplatelets or anticoagulation. Some mild discomfort at the PEG tube which is not closed. Denies any diarrhea or constipation, no blood in the stools or black stools. No burning micturition, no hematuria. No swelling of the legs. Has some headaches, has some blurred visions. Has some sore throat and runny nose. The patient says she was told the tumor is attached to the jugular vein. Admission Exam Per Admitting Provider GENERAL: The patient is of moderate build, not in acute distress. VITAL SIGNS: Temperature 36.8, pulse 90, respiratory rate 19, blood pressure 118/80, oxygen 98% on 1 liter. HEENT: No pallor, no icterus. Pupils equal, round, reactive to light. NECK: Neck mass seen on the right mandibular region extending upto the lateral aspect of upper right neck . No carotid bruits. CARDIOVASCULAR: S1, S2 heard, regular rate and rhythm, no murmur, no gallop. RESPIRATORY SYSTEM: Normal AP diameter. No accessory muscle use. No wheezing, no crackles. ABDOMEN: Bruise seen in the right umbilical region. PEG tube site still not closed and there was mild discharge seen. CENTRAL NERVOUS SYSTEM: Cranial nerves II-XII grossly nonfocal. EXTREMITIES: No edema, no erythema. 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- cellulitis Klebsiella pneumoniae left adrenal nodule, benign-appearing hypocalcemia hypokalemia hypomagnesemia weight loss / protein calorie malnutrition cholelithiasis without cholecystitis or choledocholithiasis hypothyroidism Discharge Exam Constitutional no acute distress ENMT Mouth: + muffled voice Neck + submandibular swelling (right cervical mass, firm) Respiratory no respiratory distress Auscultation: + wheezes (mild, diffuse) Cardiovascular Rate/Rhythm: regular rate and regular rhythm Heart Sounds: no gallop, no murmur and no cardiac rub Vessels: no JVD Extremities: no calf tenderness and no edema Gastrointestinal (Abdomen) normal bowel sounds, soft, nontender, no hepatosplenomegaly Inspection/Auscultation: + abdominal wall ecchymosis (resolving); + abdomen abnormal to inspection (old PEG site in epigastrium with purulent drainage; no significant erythema) Skin no rashes, warm and dry Psychiatric Orientation: alert and oriented x 3 Discharge Data Allergies Allergy/AdvReac Type Severity Reaction Status Date / Time omeprazole [From Prilosec] Allergy Rash Verified 08/15/18 03:38 prednisone Allergy Unknown Verified 08/15/18 03:38 Consultations 08/15/18 03:16 ED Decision to Admit Stat 08/15/18 06:54 Consult Case Management - Discharge Planning Routine 08/15/18 08:00 Consult Gastroenterology Routine 08/16/18 07:00 Consult General Surgery Routine 08/18/18 07:32 Burn CD for patient Routine Ordered Studies 08/15/18 00:15 CT abd pelvis IV con only Urgent CT chest w con Urgent CT soft tissue neck w con Urgent 08/16/18 11:08 MR MRCP Routine 08/16/18 11:45 FL video swallow Routine Hospital Course (1) Aspiration into lower respiratory tract: Previously diagnosed with silent aspiration and was recommended to thicken liquids. Concerned about aspiration at time of presentation. No fever. No infiltrates on chest x-ray or CT of chest. CT of neck showed large right cervical mass and other findings as noted. Seen by SKILLED NURSING CASE MANAGER. Video fluoroscopy performed 08/16 showed silent aspiration of small amounts of thin liquid, thickened liquids, and solids. Dysfunction of right vocal cord was noted. SKILLED NURSING CASE MANAGER recommends continued oral intake with aspiration precautions. Patient is at risk for recurrent pulmonary issues. Importance of ongoing aspiration precautions emphasized. (2) Abdominal wall cellulitis: Had PEG placed during initial management of head and neck Ca. It was removed about 2 years ago. Has had bloody drainage for past several months. CT of abdomen demonstrated: "A gastrostomy tube tract containing gas and fluid is noted within the ventral abdominal wall. There is mild thickening, enhancement, and stranding involving the tract and infection is not excluded." Culture of drainage obtained and patient was started on IV piperacillin / tazobactam. Seen in consultation by General Surgery. No need for I&D or other surgical intervention at this time. Wound culture grew Klebsiella pneumoniae, pansensitive. Received IV piperacillin / tazobactam, transitioned to oral therapy with amox / clav to complete 10 day course of therapy. (3) Hypotension: Intermittent systolic BP's in 90's. Patient reports that her blood pressures normally run higher. Does not appear to be septic or volume depleted. Fasting cortisol 1.91. Has been on intermittent steroid therapy and is currently on dexamethasone taper. Low cortisol at this time could simply be to adrenal suppression secondary to dexamethasone. However, important to rule out adrenal insufficiency. Cortrosyn stim test discussed with patient, but she is concerned about potential side effects. She prefers to not have testing for possible adrenal insufficiency at this time. Signs / symptoms of adrenal insufficiency and need for immediate medical attention were discussed. (4) Hypokalemia: Serum potassium was 3.0 at time of admission. Not taking any diuretics or other potassium lowering agents. Hypokalemia probably secondary to inadequate oral intake. Received replacement. Potassium day of discharge was 3.9. Discharge on KCl 20 mEq BID. Recheck labs in 1 week, then periodically thereafter. (5) Hypomagnesemia: Serum magnesium at time of admission was 0.8. Received replacement. Magnesium day of discharge was 1.6. Discharge on Mg oxide 400 mg BID. Recheck labs in 1 week, then periodically thereafter. (6) Hypocalcemia: Serum calcium was 5.9 at time of admission with albumin of 2.8. Ionized calcium was 0.80. Received replacement. 25 hydroxy vitamin D level 10.9. Will start vitamin D replacement with a modest dose of 1000 international units daily because of potential risk of hypercalcemia from underlying head and neck cancer. Calcium day of discharge was 8.4 and ionized calcium = 1.10. Discharge on calcium 600 mg + vitamin D 400 IU BID. Recheck labs in 1 week, then periodically thereafter. (7) Protein calorie malnutrition: Significant weight loss + low albumin. Installment Dealer consulted. Patient indicates that she has been intolerant of supplements in past. Well balanced diet + ongoing support from nutrition team recommended. (8) Head and neck cancer: Followed at [facility], but no longer has a Medical Oncologist Now with recurrent disease right neck. Scheduled to restart radiation therapy next week. Attempted to contact Dr. Reaves (Radiation Oncology) at [facility] to coordinate care- waiting for response. Pt shared reports from recent CT and PET. Right cervical mass has progressed from 3.1 to 5 cm in greatest diameter since 06/07/18. Right IJ involvement was noted in May. Patient states that she feels worse whenever dexamethasone is tapered- more SOB and more neck swelling / discomfort. Will discharge on dexamethasone 4 mg BID pending evaluation and further instructions by Oncology. (9) Cholelithiasis: Large gall stone noted on CT without evidence of cholecystitis. Cholelithiasis diagnosed several years ago and pt opted not to have cholecystectomy. LFT's OK. CBD elevated. GI consulted. No choledocholithiasis or other bile duct pathology noted on MRCP. No need for further evaluation / management at this time. (10) Adrenal nodule: 12 mm left adrenal nodule noted on CT of abdomen. Nodule has benign appearance, but needs to be monitored in light of known head & neck Ca. It was noted on CT at [facility] 06/07/18 and measured 10 mm at that time. (11) DVT prophylaxis: No anticoagulants at this time due to bloody drainage from old PEG site. SCD's. Ambulating. (12) Discharge planning issues: Discharged to home. Scheduled for radiation therapy at [facility] next week. Concerned about pt's fragmented care and lack of PCP. Need for comprehensive cancer management discussed. May benefit from having Patient Navigator at her cancer center. Advised that she would benefit from PCP close to home to coordinate care and assist with medical problems not directly related to her cancer care. Total Time Total Time Spent Total Time Spent (In Minutes): 45 Discharge Plan Discharge Items Patient Disposition: Home - Self-Care Reason For Visit: silent aspiration, drainage from PEG site Discharge Diagnosis: silent aspiration, drainage from PEG site Condition: Fair Discharge Goals: Decrease discomfort and Improve disease control Activity: Resume your previous activity Non-emergency contact: Primary Care Provider, Hospitalist and Oncologist Call non-emergency contact if: you have any medication questions, your symptoms worsen, your pain is worsening, your pain is unusual for you, you have a fever and your wound has increased drainage Follow-up/Referrals: PCP,NO [Primary Care Provider] - Diet: Heart Healthy Diet Comment: well-balance diet Addtl Provider Instructions: APPOINTMENTS: See your Cancer Treatment Team as soon as possible so that they can resume your treatments. Ask if they have a Patient Navigator to help with coordination of care and navigation through the system. You should have blood work checked before you start your treatments. Suggest: comprehensive metabolic profile magnesium ionized calcium CBC with diff Please [facility] to send records to your other providers. You should establish care with a primary care provider close to home when convenient. They can help you coordinate your care and take care of problems not related to your cancer. OTHER INSTRUCTIONS: Seek medical attention if you have: * temperature above 101 * extreme weakness * chest pain or trouble breathing * abdominal pain, nausea, vomiting * diarrhea, dark stools or bloody stools * any unanswered questions or concerns Call 911 if symptoms are severe. Please take good care of yourself. Call if you have any questions or problems. My cell # is [phone]. You can also reach a [facility] hospitalist on duty at [facility] 24 hours a day by calling [phone]. Prescriptions: New dexamethasone 4 mg tablet 4 mg PO BID Qty: 60 RF: 1 amoxicillin-pot clavulanate 875-125 mg tablet 1 tab PO BIDM Qty: 14 RF: 0 calcium carbonate-vitamin D3 600 mg(1,500mg) -400 unit capsule 1 cap PO BID Qty: 60 RF: 1 potassium chloride 20 mEq tablet extended release 20 meq PO BID Qty: 60 RF: 1 magnesium oxide 400 mg (241.3 mg magnesium) tablet 400 mg PO BID Qty: 60 RF: 1 Continued oxycodone 15 mg Tablet 15 mg PO Q4H PRN (Reason: Pain) RF: 0 lorazepam [Ativan] 1 mg Tablet 1 mg PO TID RF: 0 levothyroxine 25 mcg tablet 37.5 mcg PO DAILY RF: 0 pantoprazole 40 mg tablet,delayed release (DR/EC) 40 mg PO DAILY RF: 0 albuterol sulfate 2.5 mg /3 mL (0.083 %) solution for nebulization 3 mg inhalation Q4H PRN (Reason: Wheezing) RF: 0 albuterol sulfate [Ventolin HFA] 90 mcg/actuation HFA aerosol inhaler 2 puff inhalation Q4H PRN (Reason: Wheezing) RF: 0 Discontinued dexamethasone 2 mg tablet See Rx Instructions .ROUTE .COMPLEX RF: 0 Stand-Alone Forms: My [facility] Discharge Orders: Discharge Order (Routine); Ordered 08/18/18 Ordered By: Satnam Rojas Admission Data Admit Date/Time: 08/15/18 04:49 Attending Provider: Satnam Rojas Admit Provider: Ernie Overton Primary Care Provider: PCP,NO Other Providers: Sanchez Yeager ; Caren Rm ; Savanna Patino ; Carlos Gunn ; Love Magana ; Rogerio Dukes ; Aurea Pina ; Davin Braga ; Cecil Batres ; Ivon Ramos ; Sushma Sinha ; Amanda Stafford ; Adri Shell ; Vamshi De La Cruz ; Adri Tang ; Palepu,Ernie P. Service: Telemetry Medical Other Interventions: Discharge Summary Assessment (RN) Last Done: 08/18/18 11:56
== END 2018-08-18 12:40 | disposition home or self-care (01) | DRG 206 ==
LOC: ED 23:35 → 2N 08-15 04:49

== ENCOUNTER 2019-05-10 15:42 | Inpatient (IN) ==
--- NOTE | 2019-05-10 17:57 | XRay Report ---
XR chest 1V portable CLINICAL HISTORY: weakness COMPARISON STUDY: August 15, 2018 FINDINGS: The heart is normal in size. There is no failure. There is no focal pulmonary consolidation . There are no pleural effusions. There are equivocal subcentimeter left midlung zone nodules.[Given the reported prior history of head and neck carcinoma, a nonemergent chest CT should be considered in follow-up. IMPRESSION: 1. No evidence of failure 2. No evidence of focal pulmonary consolidation 3. Equivocal subcentimeter left midlung zone nodules. ACT 112: Negative or not required by law. Electronically signed by: Get Duenas M.D. 05/10/2019 5:55 PM
[2019-05-10 18:13] LABS: Basophils # (auto) 0.02 K/uL (0-0.2); Basophils % (auto) 0.2 %; Hemoglobin 13.1 g/dL (12.0-16.0); Immature Granulocytes # (auto) 0.05 K/uL (0.00-0.02); Immature Granulocytes % (auto) 0.5 %; Lymphocytes # (auto) 1.02 K/uL (1.2-3.4); Lymphocytes % (auto) 9.9 %; Mean Corpuscular Hemoglobin 31.1 pg (25-34); Mean Corpuscular Hgb Conc 32.8 g/dL (32-36); Mean Platelet Volume 9.2 fL (7.4-10.4); Monocytes % (auto) 8.7 %; Neutrophils # (auto) 8.35 K/uL (1.4-6.5); Neutrophils % (auto) 80.7 %; Platelet Count 240 K/uL (130-400); RDW Coefficient of Variation 14.2 % (11.5-14.5); RDW Standard Deviation 48.9 fL (36.4-46.3); Red Blood Count 4.21 M/uL (4.2-5.4); White Blood Count 10.34 K/uL (4.8-10.8)
[2019-05-10 18:23] LABS: Albumin Level 3.5 gm/dl (3.4-5.0); BUN Creatinine Ratio 30.6 (10-20); Creatinine Clr Calc Pharmacy 50.9 ml/min; Est GFR (African American) 67.6; Est GFR (Non-African American) 58.4; Potassium 3.4 mmol/L (3.5-5.1)
[2019-05-10 18:34] LABS: Bilirubin,Total 0.3 mg/dl (0.2-1); Globulin 3.5 gm/dl (2.5-4.0); Thyroid Stimulating Hormone 4.02 uIu/ml (0.300-4.500)
--- NOTE | 2019-05-10 18:36 | CT Scan Report ---
CT soft tissue neck wo con CT DOSE: 382.47 mGy.cm CLINICAL HISTORY: Neck mass. Swollen lips. TECHNIQUE: Helical images were acquired without intravenous contrast. A dose lowering technique was utilized adhering to the principles of ALARA. COMPARISON STUDY: Neck CT scan performed August 2018 FINDINGS: Evaluation is limited given the lack of intravenously administered contrast. There is an enlarging mass within the right carotid space measuring in excess of 9 cm in maximal diam eter. This extends to the right parapharyngeal space, and abuts the right internal carotid artery. Th ere is air present within the mass suggesting ulceration/necrosis. There are small calcifications wit hin the mass. There is pathologic adenopathy within the right cervical chain. There are bilateral upper lobe pulmonary nodules measuring up to 9 mm, indicative of metastatic disea se. There are extensive calcifications in the region of the posterior longitudinal ligament most pronounc ed at the C4-5 level. There is secondary spinal canal narrowing. This finding was present on the prec eding study IMPRESSION: 1. Marked enlargement in the size of a right neck mass with its epicenter in the right parotid space but with extension into the right parapharyngeal space. There is air present within the mass suggesti ng underlying ulceration/necrosis. The findings are indicative of recurrent/progressive neoplasm. 2. Pathologic right cervical lymphadenopathy 3. Bilateral pulmonary nodules indicative of metastatic disease. ACT 112: Negative or not required by law. Electronically signed by: Get Duenas M.D. 05/10/2019 6:35 PM
[2019-05-10] MEDS ORDERED: levoFLOXacin 750 MG TAB PO ONE (19:23)
[2019-05-10] MEDS ORDERED: LEVOFLOXACIN/D5W 750 MG/150 ML BAG IV STA (19:29)
[2019-05-10] MEDS ORDERED: PIPERACILLIN/TAZOBACTAM 4.5 GM/120 ML BAG IV ONE (19:29)
[2019-05-10] MEDS ORDERED: PIPERACILL/TAZOBAC CONSULT ACTIVE PRN (19:29)
[2019-05-10] MEDS ORDERED: IBUPROFEN 600 MG TAB PO STA (21:21)
[2019-05-10] MEDS ORDERED: POTASSIUM CHLORIDE 20 MEQ TABCR PO STA (21:21)
--- NOTE | 2019-05-10 21:25 | History & Physical Report ---
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 Reports past couple of days noticed bloody drainage from right neck area with foul odor. Denies any fever/chills, N/V. Pt follows with oncology in [place] at [facility] and sees NICOLE Whitehead and reports Dr Wong library circulation technician. Was recently started on Xeloda for 8 days and was discontinued on 05/05/2019. Was to resume 05/11/2019 Pt reports chronic swelling of right side of neck up into right ear and ride side of face and feels like she has had decreased swelling to ear and neck since Xeloda treatment. H/O radiation treatment several years ago. [facility] ER - 05/09/2019 wound culture from right neck preliminary gram negative bacilli In ER pt afebrile, P: 77, R: 16, BP: 149/95, 97% on RA. No leukocytosis. -In ER given Zosyn, Levaquin -ER physician spoke to library circulation technician oncologist - Dr Wong -Blood cultures pending -Zosyn -Aspiration precautions -Continue chronic dexamethasone -Continue oxycodone prn pain -CBC, BMP in am (3) Hypokalemia: Chronic hypokalemia. Chronic hypomagenesia -Continue potassium and magnesium supplement -Monitor electrolytes (4) Hypothyroidism: TSH: 4.0 -Continue levothyroxine (5) GERD (gastroesophageal reflux disease): -Continue PPI DVT Prophylaxis -Lovenox SQ Full Code as per discussion with pt Does not follow with PCP for routine care Pt was seen and care coordinated with Dr Overton. 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 Pt follows with oncology in [place] at [facility] and sees NICOLE Whitehead. Was recently started on Xeloda for 8 days and was discontinued on 05/05/2019. Pt reports chronic swelling of right side of neck up into right ear and ride side of face and feels like she has had decreased swelling to ear and neck since Xeloda treatment. H/O radiation treatment several years ago. Denies any fever/chills, N/V. Reports past couple of days noticed bloody drainage from right neck area with foul odor. Has been cleansing area with soap and water. Pt seen here at [facility] ER on 05/09/2019 for swelling of neck and face and drainage and had culture of drainage from neck mass and preliminary gram negative bacilli. Was treated with Benadryl, Decadron IV, and Pepcid IV. Pt states contacted oncologist who advised no further Benadryl and to maintain on current dose of dexamethasone. Reports chronic neck pain and intermittent FRITZ and uses ibuprofen and oxycodone for discomfort. Reports chronic dysphagia. History silent aspiration in past, however pt states for past 8 months has no longer needed to thicken liquids and has been eating full diet without choking. History PEG tube in past and has residual tract to abdomen that has chronic drainage. Denies surrounding erythema or edema at site. Denies diaphoresis, diarrhea, constipation, dizziness, syncope, vision changes, neck pain, CP, SOB, orthopnea, palpitations, cough, rhinorrhea, abdominal pain, paresthesias, weakness, extremity weakness, extremity edema, other rashes, urinary symptoms. Allergies Allergy/AdvReac Type Severity Reaction Status Date / Time omeprazole [From [facility]] Allergy Rash Verified 05/10/19 17:57 prednisone Allergy Unknown Verified 05/10/19 17:57 Home Medications Home Medications Medication Instructions Recorded Confirmed Type lorazepam [Ativan] 1 mg PO TID 08/15/18 05/10/19 History oxycodone 15 mg PO Q4H PRN 08/15/18 05/10/19 History pantoprazole 40 mg PO QAM 08/15/18 05/10/19 History albuterol sulfate 3 mg INHALATION Q4H PRN 08/16/18 05/10/19 History albuterol sulfate [Ventolin HFA] 2 puff INHALATION Q4H PRN 08/16/18 05/10/19 History magnesium oxide 400 mg PO BID #60 tab 08/18/18 05/10/19 Rx potassium chloride 20 meq PO BID #60 tab 08/18/18 05/10/19 Rx capecitabine See Rx Instructions .ROUTE .COMPLEX 05/10/19 05/10/19 History dexamethasone 1 mg PO BID 05/10/19 05/10/19 History lactulose 10 g PO TID 05/10/19 05/10/19 History levothyroxine 50 mcg PO QAM 05/10/19 05/10/19 History ondansetron HCl 8 mg PO DAILY PRN 05/10/19 05/10/19 History Past Med/Surg History Medical History (Updated 05/10/19 @ 21:35 by Hoa Love PA-C) Cancer of neck Cholelithiasis GERD (gastroesophageal reflux disease) Hypothyroidism Surgical History (Updated 05/10/19 @ 21:35 by Hoa Love PA-C) PEG (percutaneous endoscopic gastrostomy) status Removed Family History (Updated 05/10/19 @ 21:37 by Hoa Love PA-C) Other Cancer Heart disease Social History Preferred Language: Puerto Rican Communication Ability: Effective Order Checker Required: No Beliefs That Will Affect Care: None Current Living Situation: Alone Current Living Situation Comment: lives alone in high rise apartment Other Information That Helps Us Care for You: No Feels Safe at Home: Yes Safety Concerns: Feels Safe At This Time Smoking Status: Former smoker Do You Dip or Chew Tobacco: No ; Second Hand Exposure: No ; Hx Alcohol Use: No Hx Substance Use: No Review of Systems Review of Systems: All systems reviewed & are unremarkable except as noted in HPI & below Physical Exam Physical Exam: General: no distress, WDWN Head: normocephalic, atraumatic Eyes: PERRL, EOM's intact, conjunctiva non-injected, anicteric ENT: left ear normal inspection external ears, right side of face with mass extending from right neck up to right ear with right ear edema and edema of external canal causing occlusion, right sided facial edema, right side of mouth drooping, nose without discharge or epistaxis, mucous membranes moist Neck: trachea midline, right side of neck with mass extending right neck to right ear, with erythema, scabbing, several areas of necrotic tissue, +serosanguineous discharge Lungs: clear, no respiratory distress, no wheezing/rhonchi/rales CV: RRR, no murmur, no pretibial edema Abd: normal BS, soft, +open area to epigastric region with slight discharge with palpation at site of prior peg tube without surrounding erythema, non-tender Ext: no cyanosis, no calf tenderness Neuro: A&O x 3, no focal deficits noted, normal affect Skin: warm, dry; face/neck as above; skin tear to right lower anterior leg without surrounding erythema or edema, +scattered ecchymosis to upper and lower extremities Results & Data Vital Signs (Past 12 Hours) Vital Signs Temp Pulse Pulse Resp BP BP Pulse Ox 05/10/19 20:54 83 18 128/94 98 05/10/19 19:20 78 18 130/88 98 05/10/19 17:44 74 18 133/88 97 05/10/19 17:23 95 05/10/19 15:46 36.7 C 77 16 149/95 H 97 Laboratory Results Short CBC 05/10/19 Range/Units 17:40 WBC 10.34 (4.8-10.8) K/uL Hgb 13.1 (12.0-16.0) g/dL Hct 40.0 (37-47) % Plt Count 240 (130-400) K/uL BMP 05/10/19 17:40 Sodium 138 Potassium 3.4 L Chloride 102 Carbon Dioxide 30 BUN 32 H Creatinine 1.04 Glucose 127 H Calcium 9.0 Cardiac Enzymes 05/10/19 Range/Units 17:40 Total Creatine Kinase 135 (26-192) U/L Liver Function 05/10/19 Range/Units 17:40 Total Bilirubin 0.3 (0.2-1) mg/dl AST 31 (15-37) U/L ALT 46 (12-78) U/L Alkaline Phosphatase 77 (45-117) U/L Albumin 3.5 (3.4-5.0) gm/dl Diagnostic Findings CXR: IMPRESSION: 1. No evidence of failure 2. No evidence of focal pulmonary consolidation 3. Equivocal subcentimeter left midlung zone nodules. CT SOFT TISSUE NECK: IMPRESSION: 1. Marked enlargement in the size of a right neck mass with its epicenter in the right parotid space but with extension into the right parapharyngeal space. There is air present within the mass suggesting underlying ulceration/necrosis. The findings are indicative of recurrent/progressive neoplasm. 2. Pathologic right cervical lymphadenopathy 3. Bilateral pulmonary nodules indicative of metastatic disease. Code Status & VTE Plan VTE Prophylaxis Plan VTE Prophylaxis will be ordered: Yes Supervising Physician Co-Signing Physician Notes Care coordinated with Hoa Love PA-C. Agree with above note. Patient seen and examined. Please refer to her notes for full details. Vital signs reviewed. Physical exam: General exam: Alert and oriented. Not in acute distress. HEENt Right side of face swollen with mass near right ear and mandible region. CVS: S1 and S2 heard, regular rate and rhythm, no murmurs. RS: Clear to auscultation, no wheezing or crackles. ABD: Soft, bowel sounds present, nontender, no distention. JUSTICE PROFESSOR: Nonfocal. EXT: No edema, no erythema. Labs: Reviewed. Assessment and plan: Right face mass Squamous cell cancer head and neck Used to follow with Satnam mckeon currently following with oncology at [place] on Xeloda Mass draining- Infected- cultures gm negative bacilli on iv zosyn' [place] oncology notified( Will call them again about chemo and further instructions) monitor response Other diagnosis and plan of care as per Hoa Bills. Ernie polanco MD.
[2019-05-10] MEDS ORDERED: IBUPROFEN 600 MG TAB PO ONE (21:27)
[2019-05-10] MEDS ORDERED: POTASSIUM CHLORIDE 10 MEQ TABCR PO ONE (21:28)
--- NOTE | 2019-05-10 22:39 | Emergency Department Note ---
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 She notes she has cancer and has been off of chemo for 8 days. She notes she was seen at the ED 2 days ago for swelling to her lips. She states she was given benadryl and the swelling of her lips went down. She was discharged on decadron and called her oncologist. She states this morning when she woke up, the swelling on her lips returned. Home Medications Home Medications Medication Instructions Recorded Confirmed Type lorazepam [Ativan] 1 mg PO TID 08/15/18 05/10/19 History oxycodone 15 mg PO Q4H PRN 08/15/18 05/10/19 History pantoprazole 40 mg PO QAM 08/15/18 05/10/19 History albuterol sulfate 3 mg INHALATION Q4H PRN 08/16/18 05/10/19 History albuterol sulfate [Ventolin HFA] 2 puff INHALATION Q4H PRN 08/16/18 05/10/19 History magnesium oxide 400 mg PO BID #60 tab 08/18/18 05/10/19 Rx potassium chloride 20 meq PO BID #60 tab 08/18/18 05/10/19 Rx capecitabine See Rx Instructions .ROUTE .COMPLEX 05/10/19 05/10/19 History dexamethasone 1 mg PO BID 05/10/19 05/10/19 History lactulose 10 g PO TID 05/10/19 05/10/19 History levothyroxine 50 mcg PO QAM 05/10/19 05/10/19 History ondansetron HCl 8 mg PO DAILY PRN 05/10/19 05/10/19 History Allergies Allergy/AdvReac Type Severity Reaction Status Date / Time omeprazole [From Prilosec] Allergy Rash Verified 05/10/19 17:57 prednisone Allergy Unknown Verified 05/10/19 17:57 Past Med/Surg History Medical History (Updated 05/11/19 @ 17:56 by Kentrell Valencia MD) Cancer of neck Cholelithiasis GERD (gastroesophageal reflux disease) Hypothyroidism Surgical History (Updated 05/10/19 @ 21:35 by Hoa Love PA-C) PEG (percutaneous endoscopic gastrostomy) status Removed Family History (Updated 05/10/19 @ 21:37 by Hoa Love PA-C) Other Cancer Heart disease Social History Preferred Language: Greenlandic Communication Ability: Effective Train Engineer Required: No Beliefs That Will Affect Care: None marital status: Single Current Living Situation: Alone Current Living Situation Comment: lives alone in high rise apartment Other Information That Helps Us Care for You: No Feels Safe at Home: Yes Safety Concerns: Feels Safe At This Time Smoking Status: Former smoker Do You Dip or Chew Tobacco: No ; Second Hand Exposure: No ; Hx Alcohol Use: No Hx Substance Use: No Review of Systems See HPI for pertinent positives & negatives. and A total of 10 systems reviewed and were otherwise negative Physical Exam Vital Signs Vital Signs - 24 hr 05/10/19 19:20 Pulse Rate [Apical] 78 Respiratory Rate 18 Blood Pressure [Left Arm] 130/88 Blood Pressure Mean [Left Arm] 102 Pulse Oximetry 98 Oxygen Delivery Method Room Air GENERAL: Awake, alert, well-appearing, in no acute distress HENT: Normocephalic, atraumatic. Oropharynx unremarkable. EYES: Normal conjunctiva. Sclera non-icteric. NECK: Supple. No nuchal rigidity. FROM. No JVD. Enlarged mass to the right of the neck. Open area of drainage present. RESPIRATORY: Clear to auscultation. CARDIAC: Regular rate, normal rhythm. Extremities warm and well perfused. Pulses equal. ABDOMEN: Soft, non-distended. No tenderness to palpation. No rebound or guarding. No masses. RECTAL: Deferred. MUSCULOSKELETAL: Chest examination reveals no tenderness. The back is sym metrical on inspection without obvious abnormality. There is no CVA tenderness to palpation. No joint edema. LOWER EXTREMITIES: Calves are equal size bilaterally and non-tender. No edema. No discoloration. NEURO: Normal sensorium. No sensory or motor deficits noted. SKIN: No rash or jaundice noted. Course Course 164: Past medical records reviewed. The patient was evaluated in room B7. A complete history and physical exam was performed. 1917: Discussed the patient's case with Dr. Wong, Oncology. He agrees with the treatment plan. 1944: Discussed the patient's case with Dr. Overton, [facility] Hospitalist. The patient will be evaluated for further management by him. Administered Medications Albuterol (Ventolin 0.083% 2.5mg/3ml) 3 mg INH Q4H PRN PRN Reason: Wheezing Stop: 06/10/19 00:14 Last Admin: 05/11/19 15:33 Dose: 3 mg Documented by: [id number] Dexamethasone (Decadron) 1 mg PO BID@0900,1400 [facility] Stop: 06/10/19 13:59 Last Admin: 05/11/19 13:17 Dose: 1 mg Documented by: [id number] Enoxaparin Sodium (Lovenox) 40 mg SQ Q24H HARSHAD Stop: 06/10/19 07:59 Last Admin: 05/11/19 08:39 Dose: Not Given Documented by: [id number] Piperacillin Sod/Tazobactam (Sod 3.375 gm/ Dextrose) 115 mls @ 28.75 mls/hr IV Q8H HARSHAD; Protocol Stop: 05/18/19 00:59 Last Admin: 05/11/19 16:11 Dose: 28.8 mls/hr Documented by: [id number] Infusion: 05/11/19 11:50 Dose: 0 mls/hr Documented by: [id number] Admin: 05/11/19 07:45 Dose: 28.8 mls/hr Documented by: [id number] Infusion: 05/11/19 06:00 Dose: 0 mls/hr Documented by: [id number] Admin: 05/11/19 01:58 Dose: 28.8 mls/hr Documented by: [id number] Ibuprofen (Motrin) 600 mg PO Q8H PRN PRN Reason: Pain Stop: 06/10/19 10:22 Last Admin: 05/11/19 10:37 Dose: 600 mg Documented by: [id number] Lactulose (Chronulac) 10 gm PO TID HARSHAD Stop: 06/10/19 08:59 Last Admin: 05/11/19 13:18 Dose: 10 gm Documented by: [id number] Admin: 05/11/19 07:44 Dose: 10 gm Documented by: [id number] Levothyroxine Sodium (Synthroid) 50 mcg PO DAILYBB [facility] Stop: 06/10/19 06:29 Last Admin: 05/11/19 05:46 Dose: 50 mcg Documented by: [id number] Lorazepam (Ativan) 1 mg PO TID [facility] Stop: 06/10/19 00:14 Last Admin: 05/11/19 13:16 Dose: 1 mg Documented by: [id number] Admin: 05/11/19 07:42 Dose: 1 mg Documented by: [id number] Admin: 05/11/19 01:29 Dose: 1 mg Documented by: [id number] Magnesium Oxide (Mag-Ox) 400 mg PO BID@0900,1400 [facility] Stop: 06/10/19 13:59 Last Admin: 05/11/19 13:19 Dose: 400 mg Documented by: [id number] Oxycodone HCl (Roxicodone Immediate Rel) 15 mg PO Q4H PRN PRN Reason: Pain Stop: 05/25/19 00:14 Last Admin: 05/11/19 07:43 Dose: 15 mg Documented by: [id number] Pantoprazole Sodium (Protonix) 40 mg PO QAM [facility] Stop: 06/10/19 08:59 Last Admin: 05/11/19 07:43 Dose: 40 mg Documented by: [id number] Potassium Chloride (Klor-Con M20) 20 meq PO BID@0900,1400 [facility] Stop: 06/10/19 13:59 Last Admin: 05/11/19 13:17 Dose: 20 meq Documented by: [id number] Discontinued Medications Dexamethasone (Decadron) 1 mg PO BID [facility] Stop: 06/10/19 08:59 Last Admin: 05/11/19 07:42 Dose: 1 mg Documented by: [id number] Piperacillin Sod/Tazobactam Sod (Zosyn) 4.5 gm in 120 mls @ 240 mls/hr IV NOW ONE Stop: 05/10/19 19:58 Last Infusion: 05/10/19 20:13 Dose: 0 mls/hr Documented by: [id number] Admin: 05/10/19 19:36 Dose: 240 mls/hr Documented by: [id number] Levofloxacin/Dextrose (Levaquin/D5w) 750 mg in 150 mls @ 100 mls/hr IV NOW STA Stop: 05/10/19 20:58 Last Infusion: 05/10/19 22:08 Dose: 0 mls/hr Documented by: [id number] Admin: 05/10/19 20:36 Dose: 100 mls/hr Documented by: [id number] Ibuprofen (Motrin) 600 mg PO NOW STA Stop: 05/10/19 21:22 Last Admin: 05/10/19 22:08 Dose: Not Given Documented by: [id number] Ibuprofen (Motrin) Confirm Administered Dose 600 mg PO .STK-MED ONE Stop: 05/10/19 21:28 Last Admin: 05/10/19 21:31 Dose: 600 mg Documented by: [id number] Levofloxacin (Levaquin) 750 mg PO ONE ONE Stop: 05/10/19 19:24 Last Admin: 05/10/19 20:53 Dose: Not Given Documented by: [id number] Magnesium Oxide (Mag-Ox) 400 mg PO BID HARSHAD Stop: 06/10/19 08:59 Last Admin: 05/11/19 07:42 Dose: 400 mg Documented by: [id number] Magnesium Oxide (Mag-Ox) 400 mg PO NOW STA Stop: 05/11/19 00:16 Last Admin: 05/11/19 01:30 Dose: 400 mg Documented by: [id number] Potassium Chloride (Klor-Con M20) 20 meq PO NOW STA Stop: 05/10/19 21:22 Last Admin: 05/10/19 22:08 Dose: Not Given Documented by: [id number] Potassium Chloride (Klor-Con M10) Confirm Administered Dose 20 meq PO .STK-MED ONE Stop: 05/10/19 21:29 Last Admin: 05/10/19 21:31 Dose: 20 meq Documented by: [id number] Potassium Chloride (Klor-Con M20) 20 meq PO BID HARSHAD Stop: 06/10/19 08:59 Last Admin: 05/11/19 07:43 Dose: 20 meq Documented by: [id number] Medical Decision Making Medical Records Attestation: I reviewed the patient's medical records. Home Medications Current Medication List: was personally reviewed by me Laboratory Data Attestation: I reviewed the patient's lab results. Result diagrams: 05/11/19 06:53 05/11/19 06:53 Lab Results 02/25/20 02/25/20 Range/Units 17:40 17:40 WBC 10.34 (4.8-10.8) K/uL RBC 4.21 (4.2-5.4) M/uL Hgb 13.1 (12.0-16.0) g/dL Hct 40.0 (37-47) % MCV 95.0 (80-100) fL MCH 31.1 (25-34) pg MCHC 32.8 (32-36) g/dL RDW Std Deviation 48.9 H (36.4-46.3) fL RDW Coeff of Ainsley 14.2 (11.5-14.5) % Plt Count 240 (130-400) K/uL MPV 9.2 (7.4-10.4) fL Immature Gran % (Auto) 0.5 % Neut % (Auto) 80.7 % Lymph % (Auto) 9.9 % [place] % (Auto) 8.7 % Eos % (Auto) 0.0 % Baso % (Auto) 0.2 % Immature Gran # (Auto) 0.05 H (0.00-0.02) K/uL Neut # (Auto) 8.35 H (1.4-6.5) K/uL Lymph # (Auto) 1.02 L (1.2-3.4) K/uL [place] # (Auto) 0.90 H (0.11-0.59) K/uL Eos # (Auto) 0.00 (0-0.5) K/uL Baso # (Auto) 0.02 (0-0.2) K/uL Sodium 138 (136-145) mmol/L Potassium 3.4 L (3.5-5.1) mmol/L Chloride 102 (98-107) mmol/L Carbon Dioxide 30 (21-32) mmol/L Anion Gap 7.0 (3-11) BUN 32 H (7-18) mg/dl Creatinine 1.04 (0.6-1.2) mg/dl Est Cr Clr Drug Dosing 50.9 ml/min Est GFR ( Amer) 67.6 Est GFR (Non-Af Amer) 58.4 BUN/Creatinine Ratio 30.6 H (10-20) Glucose 127 H (70-99) mg/dl Calcium 9.0 (8.5-10.1) mg/dl Total Bilirubin 0.3 (0.2-1) mg/dl AST 31 (15-37) U/L ALT 46 (12-78) U/L Alkaline Phosphatase 77 (45-117) U/L Total Creatine Kinase 135 (26-192) U/L Total Protein 7.0 (6.4-8.2) gm/dl Albumin 3.5 (3.4-5.0) gm/dl Globulin 3.5 (2.5-4.0) gm/dl Albumin/Globulin Ratio 1.0 (0.9-2) TSH 4.020 (0.300-4.500) uIu/ml Imaging Data Radiologist's Impression: Radiology results as stated below per my review and the radiologist's interpretation: CT soft tissue neck wo con CT DOSE: 382.47 mGy.cm CLINICAL HISTORY: Neck mass. Swollen lips. TECHNIQUE: Helical images were acquired without intravenous contrast. A dose lowering technique was utilized adhering to the principles of ALARA. COMPARISON STUDY: Neck CT scan performed August 2018 FINDINGS: Evaluation is limited given the lack of intravenously administered contrast. There is an enlarging mass within the right carotid space measuring in excess of 9 cm in maximal diameter. This extends to the right parapharyngeal space, and abuts the right internal carotid artery. There is air present within the mass suggesting ulceration/necrosis. There are small calcifications within the mass. There is pathologic adenopathy within the right cervical chain. There are bilateral upper lobe pulmonary nodules measuring up to 9 mm, indicative of metastatic disease. There are extensive calcifications in the region of the posterior longitudinal ligament most pronounced at the C4-5 level. There is secondary spinal canal narrowing. This finding was present on the preceding study IMPRESSION: 1. Marked enlargement in the size of a right neck mass with its epicenter in the right parotid space but with extension into the right parapharyngeal space. There is air present within the mass suggesting underlying ulceration/necrosis. The findings are indicative of recurrent/progressive neoplasm. 2. Pathologic right cervical lymphadenopathy 3. Bilateral pulmonary nodules indicative of metastatic disease. ACT 112: Negative or not required by law. Electronically signed by: Get Duenas M.D. 05/10/2019 6:35 PM XR chest 1V portable CLINICAL HISTORY: weakness COMPARISON STUDY: August 15, 2018 FINDINGS: The heart is normal in size. There is no failure. There is no focal pulmonary consolidation. There are no pleural effusions. There are equivocal subcentimeter left midlung zone nodules.[Given the reported prior history of h ead and neck carcinoma, a nonemergent chest CT should be considered in follow- up. IMPRESSION: 1. No evidence of failure 2. No evidence of focal pulmonary consolidation 3. Equivocal subcentimeter left midlung zone nodules. ACT 112: Negative or not required by law. Electronically signed by: Get Duenas M.D. 05/10/2019 5:55 PM ECG Data Attestation: I personally reviewed and interpreted this ECG as follows: Indication: + other (swelling to lips) Rate (beats per minute): 69 Rhythm: + normal sinus ECG ST segments: no ST depression and no ST elevation ECG Findings: + Other (QT-c 435 ) Blood Pressure Blood Pressure Findings: Elevated blood pressure Blood Pressure Disposition: Referred to patients primary care provider MDM Narrative This is a 58-year-old female who presents emergency department complaining of increased swelling to her neck mass. A culture was obtained 2 days ago which is showing gram-negative rods. Based on previous cultures I suspect that this is actually Klebsiella. The patient does not want me to start any medications until talking to her oncologist aeronautical engineering technologist. He was contacted and the decision was made to start the patient on broad-spectrum antibiotics including Zosyn and Levaquin. The patient would like to be admitted which I feel is reasonable. I did discuss the case with the hospitalist service who did agree to admit the patient. Patient is in agreement with the treatment plan. Impression & Plan Head and neck cancer, Neck mass Discharge Plan Visit Data *Final* Discharge Date/Time: 05/10/19 23:23 Chief Complaint: Swelling/Edema to Extremity Stated Complaint: SWOLLEN LIPS ED Provider: Kentrell Valencia Discharge Problem: Head and neck cancer, Neck mass Patient Disposition: Admitted As Inpatient Discharge Instructions Interventions: ED Discharge Assessment Last Done: 05/10/19 23:23 The scribe's documentation has been prepared under my direction and personally reviewed by me in its entirety. I confirm that the note above accurately refl ects all work, treatment, procedures, and medical decision making performed by me.
[2019-05-11] MEDS ORDERED: MAGNESIUM OXIDE 400 MG TAB PO STA (00:15)
[2019-05-11] MEDS ORDERED: ACETAMINOPHEN 325 MG TAB PO PRN (00:15)
[2019-05-11] MEDS ORDERED: PIPERACILL/TAZOBAC CONSULT ACTIVE PRN (00:49)
[2019-05-11] MEDS: LORazepam 1 MG TAB PO SCH ×4 (01:29→20:12)
[2019-05-11] MEDS: PIPERACILLIN/TAZOBACTAM 3.375 GM in DEXTROSE 5% 100 ML IV SCH ×3 (01:58→16:11)
[2019-05-11 02:49] LABS: Appearance Urine Clear (Clear); Bilirubin Urine Negative (Negative); Blood Urine Negative (Negative); Color Urine Yellow; Glucose Urine UA Negative (Negative); Ketones Urine Negative (Negative); Leukocyte Esterase Urine Negative (Negative); Nitrite Urine Negative (Negative); Protein Urine Negative (Negative); Specific Gravity Urine 1.012 (1.000-1.030); Urobilinogen Urine Negative (Negative); pH Urine 6.5 (4.5-7.5)
[2019-05-11] MEDS: LEVOTHYROXINE SODIUM 50 MCG TABLET PO SCH (05:46)
[2019-05-11 07:18] LABS: Hematocrit (blood only) 37.5 % (37-47); Hemoglobin 12.2 g/dL (12.0-16.0); Mean Corpuscular Hemoglobin 30.8 pg (25-34); Mean Corpuscular Hgb Conc 32.5 g/dL (32-36); Mean Corpuscular Volume 94.7 fL (80-100); Mean Platelet Volume 8.7 fL (7.4-10.4); Platelet Count 218 K/uL (130-400); RDW Standard Deviation 48.1 fL (36.4-46.3); Red Blood Count 3.96 M/uL (4.2-5.4); White Blood Count 8.31 K/uL (4.8-10.8)
[2019-05-11] MEDS: OXYCODONE HCL IR 5 MG TAB (IMMEDIATE RELEASE) PO PRN (07:43)
[2019-05-11] MEDS: PANTOprazole 40 MG TAB PO SCH (07:43)
[2019-05-11] MEDS: LACTULOSE SYRUP 10 GM/15 ML BTL 960 ML PO SCH ×3 (07:44→20:12)
[2019-05-11 07:46] LABS: BUN Creatinine Ratio 23.1 (10-20); Calcium 8.8 mg/dl (8.5-10.1); Creatinine Clr Calc Pharmacy 51.9 ml/min; Est GFR (African American) 70.1; Est GFR (Non-African American) 60.5; Magnesium 2.1 mg/dl (1.8-2.4); Potassium 3.6 mmol/L (3.5-5.1)
[2019-05-11] MEDS: ENOXAPARIN INJ 40 MG/0.4 ML SYR SQ SCH (08:39)
[2019-05-11] MEDS ORDERED: MAGNESIUM OXIDE 400 MG TAB PO SCH (09:00)
[2019-05-11] MEDS ORDERED: dexAMETHasone 1 MG TAB PO SCH (09:00)
[2019-05-11] MEDS ORDERED: POTASSIUM CHLORIDE 20 MEQ TABCR PO SCH (09:00)
[2019-05-11] MEDS: IBUPROFEN 600 MG TAB PO PRN (10:37)
[2019-05-11] MEDS: POTASSIUM CHLORIDE 20 MEQ TABCR PO SCH (13:17)
[2019-05-11] MEDS: dexAMETHasone 1 MG TAB PO SCH (13:17)
[2019-05-11] MEDS: MAGNESIUM OXIDE 400 MG TAB PO SCH (13:19)
--- NOTE | 2019-05-11 14:51 | Electrocardiogram Report ---
Test Reason : Blood Pressure : / mmHG Vent. Rate : 069 BPM Atrial Rate : 069 BPM P-R Int : 154 ms QRS Dur : 082 ms QT Int : 406 ms P-R-T Axes : 028 -06 038 degrees QTc Int : 435 ms Normal sinus rhythm Poor R wave progression, consider anterior AR vs. lead placement vs. LVH Abnormal ECG When compared with ECG of 10-MAY-2019 17:15, (unconfirmed) No significant change was found Confirmed by Angel Oneill ([id number]) on 05/11/2019 2:51:12 PM Referred By: REFERRED SELF Confirmed By:Gabino Oneill
[2019-05-11] MEDS: ALBUTEROL 0.083% NEBU SOLN 3 ML VIAL INH PRN (15:33)
--- NOTE | 2019-05-11 17:16 | Hospitalist Progress Note ---
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 Soft Tissue Neck CT showed marked enlargement in the size of a right neck mass with its epicenter in the right parotid space but with extension into the right parapharyngeal space. There is air present within the mass suggesting underlying ulceration/necrosis. The findings are indicative of recurrent/progressive neoplasm. Wound culture collected on 05/09 grew proteus mirabilis Received IV Zosyn and Levaquin in the ER Continue IV Zosyn for now Blood cx pending Case discussed with oncology in [place] at [facility] NICOLE Whitehead recommended to hold on Xeroda while on IV abx due to risk of neutropenia Pt reports chronic swelling of right side of neck up into right ear and ride side of face and feels like she has had decreased swelling to ear and neck since Xeloda treatment. H/O radiation treatment several years ago. Will transition to oral abx if blood cx negative Continue chronic dexamethasone and oxycodone prn pain Continue Monitor (3) Hypokalemia: K 3.6 Monitor electrolytes Stable (4) Hypothyroidism: TSH: 4.0 Continue levothyroxine (5) GERD (gastroesophageal reflux disease): Continue PPI Lung Nodules CT showed bilateral pulmonary nodules indicative of metastatic disease. Finding discussed with patient Follow up with outpatient oncology DVT Prophylaxis Lovenox SQ Full Code Admission and Anticipated Discharge Date Admission Date: May 10, 2019 Subjective Pt was seen and examined Lying in bed with no distress Pt is very anxious Denies any fever, chest pain, palpitation and SOB Physical Exam Physical Exam: General- No acute distress Head- atraumatic Eyes- PERRL, EOMI, ENT- Mass extending from right neck up to right ear with right ear edema, wound behind right ear with drainage with foul odor Neck- +right side of neck with mass extending right neck to right ear, with erythema, scabbing, several areas of necrotic tissue, +serosanguineous discharge Lungs- clear to auscultation Heart- regular rhythm; no murmur Abdomen- normal bowel sounds, soft, nontender Extremities- no calf tenderness Neuro- alert, oriented x 3; PERRL, EOMI; no facial palsy; no dysarthria Skin- warm & dry Results & Data ([facility]) Vital Signs (Past 12 Hours) Vital Signs Temp Pulse Pulse Resp BP Pulse Ox 05/11/19 15:45 36.7 C 94 H 18 133/87 96 05/11/19 15:36 89 18 95 05/11/19 11:00 36.7 C 81 16 101/69 95 05/11/19 09:08 58 L 05/11/19 08:00 36.7 C 78 18 124/78 95 05/11/19 07:44 36.6 C 67 18 110/75 98
[2019-05-12] MEDS: PIPERACILLIN/TAZOBACTAM 3.375 GM in DEXTROSE 5% 100 ML IV SCH (00:02)
[2019-05-12] MEDS: OXYCODONE HCL IR 5 MG TAB (IMMEDIATE RELEASE) PO PRN ×3 (03:42→17:11)
[2019-05-12] MEDS: LEVOTHYROXINE SODIUM 50 MCG TABLET PO SCH (05:33)
[2019-05-12] MEDS: IBUPROFEN 600 MG TAB PO PRN ×2 (05:34→20:37)
[2019-05-12] MEDS ORDERED: DiphenhydrAMINE HCL 50 MG/ML VIAL IV STA (06:23)
--- NOTE | 2019-05-12 06:25 | Communication Note ---
Date of Service: May 12, 2019 Patient noted to have recurrent lip swelling which seems to coincide with IV Zosyn administration as per RN. NOE ? Zosyn hypersensitivity IV Benadryl now Hold Zosyn for now, add medication to ADR list Ertapenem in place of Zosyn for now. Will relay to AM provider.
[2019-05-12] MEDS ORDERED: ERTAPENEM CONSULT ACTIVE PRN (06:39)
[2019-05-12] MEDS ORDERED: DiphenhydrAMINE HCL 50 MG/ML VIAL ONE (08:37)
[2019-05-12] MEDS: ERTAPENEM SODIUM 1,000 MG in SODIUM CHLORIDE 0.9% 50 ML IV SCH (08:44)
[2019-05-12] MEDS: ENOXAPARIN INJ 40 MG/0.4 ML SYR SQ SCH (08:45)
[2019-05-12] MEDS: LORazepam 1 MG TAB PO SCH ×3 (08:45→20:36)
[2019-05-12] MEDS ORDERED: DiphenhydrAMINE HCL 50 MG/ML VIAL IV ONE ×2 (08:45→21:00)
[2019-05-12] MEDS: LACTULOSE SYRUP 10 GM/15 ML BTL 960 ML PO SCH ×3 (08:45→20:36)
[2019-05-12] MEDS: MAGNESIUM OXIDE 400 MG TAB PO SCH ×2 (08:46→13:24)
[2019-05-12] MEDS: dexAMETHasone 1 MG TAB PO SCH ×2 (08:47→13:23)
[2019-05-12] MEDS: PANTOprazole 40 MG TAB PO SCH (08:48)
[2019-05-12] MEDS: POTASSIUM CHLORIDE 20 MEQ TABCR PO SCH ×2 (08:49→13:23)
[2019-05-12] MEDS: ALBUTEROL 0.083% NEBU SOLN 3 ML VIAL INH PRN (13:27)
[2019-05-12 15:22] LABS: Hematocrit (blood only) 38.8 % (37-47); Hemoglobin 12.7 g/dL (12.0-16.0); Mean Corpuscular Hemoglobin 31.1 pg (25-34); Mean Corpuscular Hgb Conc 32.7 g/dL (32-36); Mean Corpuscular Volume 94.9 fL (80-100); Platelet Count 182 K/uL (130-400); RDW Coefficient of Variation 14.1 % (11.5-14.5); RDW Standard Deviation 48.5 fL (36.4-46.3); Red Blood Count 4.09 M/uL (4.2-5.4); White Blood Count 7.58 K/uL (4.8-10.8)
--- NOTE | 2019-05-12 19:37 | Hospitalist Progress Note ---
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 Soft Tissue Neck CT showed marked enlargement in the size of a right neck mass with its epicenter in the right parotid space but with extension into the right parapharyngeal space. There is air present within the mass suggesting underlying ulceration/necrosis. The findings are indicative of recurrent/progressive neoplasm. Wound culture collected on 05/09 grew proteus mirabilis Received IV Zosyn and Levaquin in the ER IV Zosyn changed to Unasyn for questionable lips swelling (I do not think that the lip swelling was related to the zosyn because pt had lip swelling before starting on Zosyn) Blood cx no growth WBC WNL [facility] [place] [facility] to hold on Xeroda while on IV abx due to risk of neutropenia Pt reports chronic swelling of right side of neck up into right ear and ride side of face and feels like she has had decreased swelling to ear and neck since Xeloda treatment. H/O radiation treatment several years ago. Will transition to oral abx with cipro if blood cx negative in the morning Continue chronic dexamethasone and oxycodone prn pain Continue Monitor (3) Hypokalemia: K 3.6 Monitor electrolytes Stable (4) Hypothyroidism: TSH: 4.0 Continue levothyroxine (5) GERD (gastroesophageal reflux disease): Continue PPI Lung Nodules CT showed bilateral pulmonary nodules indicative of metastatic disease. Finding discussed with patient Follow up with outpatient oncology DVT Prophylaxis Lovenox SQ Full Code Admission and Anticipated Discharge Date Admission Date: May 10, 2019 Subjective Pt was seen and examined Lying in bed with no distress very anxious about her medication She said that the lip swelling improves Zosyn was changed to Unasyn because of questionable lips swelling She refused to take the Unasyn until confirm with her oncology Pt said that she has to drive an hour to get home and feels very tired today She would like to leave early in the morning Denies any chest pain, palpitation and SOB Physical Exam Physical Exam: General- No acute distress Head- atraumatic Eyes- PERRL, EOMI, ENT- Mass extending from right neck up to right ear with right ear edema, wound behind right ear with drainage with foul odor Neck- +right side of neck with mass extending right neck to right ear, with erythema, scabbing, several areas of necrotic tissue, +serosanguineous discharge Lungs- clear to auscultation Heart- regular rhythm; no murmur Abdomen- normal bowel sounds, soft, nontender Extremities- no calf tenderness Neuro- alert, oriented x 3; PERRL, EOMI; no facial palsy; no dysarthria Skin- warm & dry Results & Data ([facility]) Vital Signs (Past 12 Hours) Vital Signs Temp Pulse Pulse Resp BP Pulse Ox Pulse Ox 05/12/19 16:07 84 05/12/19 15:46 36.6 C 79 20 93/65 L 96 05/12/19 13:32 76 20 92 05/12/19 11:21 36.7 C 67 22 102/66 95 05/12/19 08:00 97
[2019-05-13] MEDS: LEVOTHYROXINE SODIUM 50 MCG TABLET PO SCH (05:12)
[2019-05-13] MEDS: OXYCODONE HCL IR 5 MG TAB (IMMEDIATE RELEASE) PO PRN (05:15)
[2019-05-13] MEDS: ALBUTEROL 0.083% NEBU SOLN 3 ML VIAL INH PRN (05:27)
[2019-05-13] MEDS: ERTAPENEM SODIUM 1,000 MG in SODIUM CHLORIDE 0.9% 50 ML IV SCH (06:08)
[2019-05-13] MEDS: ENOXAPARIN INJ 40 MG/0.4 ML SYR SQ SCH (08:19)
[2019-05-13] MEDS: MAGNESIUM OXIDE 400 MG TAB PO SCH (08:20)
[2019-05-13] MEDS: POTASSIUM CHLORIDE 20 MEQ TABCR PO SCH (08:21)
[2019-05-13] MEDS: PANTOprazole 40 MG TAB PO SCH (08:22)
[2019-05-13] MEDS: LACTULOSE SYRUP 10 GM/15 ML BTL 960 ML PO SCH (08:22)
[2019-05-13] MEDS: dexAMETHasone 1 MG TAB PO SCH (08:22)
[2019-05-13] MEDS: LORazepam 1 MG TAB PO SCH (08:25)
[2019-05-13] MEDS: IBUPROFEN 600 MG TAB PO PRN (10:16)
--- NOTE | 2019-05-13 10:54 | Hospitalist Progress Note ---
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 Soft Tissue Neck CT showed marked enlargement in the size of a right neck mass with its epicenter in the right parotid space but with extension into the right parapharyngeal space. There is air present within the mass suggesting underlying ulceration/necrosis. The findings are indicative of recurrent/progressive neoplasm. Wound culture collected on 05/09 grew proteus mirabilis Received IV Zosyn and Levaquin in the ER IV Zosyn changed to Unasyn for questionable lips swelling (I do not think that the lip swelling was related to the zosyn because pt had lip swelling before starting on Zosyn) Blood cx no growth WBC WNL [facility] [place] [facility] recommended to hold on Xeroda while on IV abx due to risk of neutropenia Pt reports chronic swelling of right side of neck up into right ear and ride side of face and feels like she has had decreased swelling to ear and neck since Xeloda treatment. H/O radiation treatment several years ago. Will transition to oral abx with cipro since blood cx negative Continue chronic dexamethasone and oxycodone prn pain Follow up with your oncology next week. Imaging was burned on CD to bring to the Oncology Wound care consulted and pt refused any wound care until confirming with her oncology in [place] Continue Monitor Right Side facial/Lip swelling Mostly due to the right Neck mass Pt said that the chemo was helping with the swelling Continue dexamethasone and benadril prn Currently denies any problems of swallowing or SOB Advised pt to seek medical attention if develop any difficulty to breath, swallow or feel her tongue swelling (3) Hypokalemia: K 3.6 Monitor electrolytes Stable (4) Hypothyroidism: TSH: 4.0 Continue levothyroxine (5) GERD (gastroesophageal reflux disease): Continue PPI Lung Nodules CT showed bilateral pulmonary nodules indicative of metastatic disease. Finding discussed with patient Follow up with outpatient oncology DVT Prophylaxis Lovenox SQ Full Code Disposition Discharge home today Admission and Anticipated Discharge Date Admission Date: May 10, 2019 Subjective pt was seen and examined Lying in bed with no distress Pt said that her right side lip has been on and off swelling She said that it seems like the chemo was helping with the swelling She said that her left facial area swelling seems to improve I explained to pt that because she a mass/tumor in the Right side neck/parotid and behind ear area, that will cause her riight facial/lip area to get swollen The area is non operative as per oncology team in [place] when i spoke to them Currently pt denies any chest pain, palpitation, dizziness, sob, dysphagia or tongue swelling Physical Exam Physical Exam: General- No acute distress Head- atraumatic Eyes- PERRL, EOMI Face- Right side facial swelling ENT- Mass extending from right neck up to right ear with right ear edema, wound behind right ear with drainage with foul odor Neck- +right side of neck with mass extending right neck to right ear, with erythema, scabbing, several areas of necrotic tissue, +serosanguineous discharge Lungs- clear to auscultation Heart- regular rhythm; no murmur Abdomen- normal bowel sounds, soft, nontender Extremities- no calf tenderness Neuro- alert, oriented x 3; PERRL, EOMI; no facial palsy; no dysarthria Skin- warm & dry Results & Data ([facility]) Vital Signs (Past 12 Hours) Vital Signs Temp Pulse Pulse Pulse Resp BP Pulse Ox 05/13/19 09:03 74 05/13/19 07:27 36.7 C 75 16 94/61 L 97 05/13/19 05:30 65 16 97 05/13/19 04:22 36.5 C 63 18 108/71 98 05/13/19 03:51 70 18 05/12/19 23:02 36.7 C 68 18 101/67 94 05/12/19 23:00 69
--- NOTE | 2019-05-13 10:57 | Discharge Summary ---
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 Pt follows with oncology in [place] at [facility] and sees NICOLE Whitehead. Was recently started on Xeloda for 8 days and was discontinued on 05/05/2019. Pt reports chronic swelling of right side of neck up into right ear and ride side of face and feels like she has had decreased swelling to ear and neck since Xeloda treatment. H/O radiation treatment several years ago. Denies any fever/chills, N/V. Reports past couple of days noticed bloody drainage from right neck area with foul odor. Has been cleansing area with soap and water. Pt seen here at [facility] ER on 05/09/2019 for swelling of neck and face and drainage and had culture of drainage from neck mass and preliminary gram negative bacilli. Was treated with Benadryl, Decadron IV, and Pepcid IV. Pt states contacted oncologist who advised no further Benadryl and to maintain on current dose of dexamethasone. Reports chronic neck pain and intermittent FRITZ and uses ibuprofen and oxycodone for discomfort. Reports chronic dysphagia. History silent aspiration in past, however pt states for past 8 months has no longer needed to thicken liquids and has been eating full diet without choking. History PEG tube in past and has residual tract to abdomen that has chronic drainage. Denies surrounding erythema or edema at site. Denies diaphoresis, diarrhea, constipation, dizziness, syncope, vision changes, neck pain, CP, SOB, orthopnea, palpitations, cough, rhinorrhea, abdominal pain, paresthesias, weakness, extremity weakness, extremity edema, other rashes, urinary symptoms. Admission Exam Per Admitting Provider General: no distress, WDWN Head: normocephalic, atraumatic Eyes: PERRL, EOM's intact, conjunctiva non-injected, anicteric ENT: left ear normal inspection external ears, right side of face with mass extending from right neck up to right ear with right ear edema and edema of external canal causing occlusion, right sided facial edema, right side of mouth drooping, nose without discharge or epistaxis, mucous membranes moist Neck: trachea midline, right side of neck with mass extending right neck to right ear, with erythema, scabbing, several areas of necrotic tissue, +serosanguineous discharge Lungs: clear, no respiratory distress, no wheezing/rhonchi/rales CV: RRR, no murmur, no pretibial edema Abd: normal BS, soft, +open area to epigastric region with slight discharge with palpation at site of prior peg tube without surrounding erythema, non-tender Ext: no cyanosis, no calf tenderness Neuro: A&O x 3, no focal deficits noted, normal affect Skin: warm, dry; face/neck as above; skin tear to right lower anterior leg without surrounding erythema or edema, +scattered ecchymosis to upper and lower extremities Principal Diagnosis Head and neck cancer Hypokalemia: Hypothyroidism: GERD (gastroesophageal reflux disease): Lung Nodules Discharge Exam General- No acute distress Head- atraumatic Eyes- PERRL, EOMI Face- Right side facial swelling ENT- Mass extending from right neck up to right ear with right ear edema, wound behind right ear with drainage with foul odor Neck- +right side of neck with mass extending right neck to right ear, with erythema, scabbing, several areas of necrotic tissue, +serosanguineous discharge Lungs- clear to auscultation Heart- regular rhythm; no murmur Abdomen- normal bowel sounds, soft, nontender Extremities- no calf tenderness Neuro- alert, oriented x 3; PERRL, EOMI; no facial palsy; no dysarthria Skin- warm & dry Discharge Data Allergies Allergy/AdvReac Type Severity Reaction Status Date / Time piperacillin [From Zosyn] Allergy Mild lip Verified 05/12/19 06:25 swelling tazobactam [From Zosyn] Allergy Mild lip Verified 05/12/19 06:25 swelling omeprazole [From Prilosec] Allergy Rash Verified 05/10/19 17:57 prednisone Allergy Unknown Verified 05/10/19 17:57 Consultations 05/10/19 19:54 ED Decision to Admit Stat Ordered Studies 05/10/19 17:58 CT soft tissue neck wo con Stat XR chest 1V portable CLINICAL HISTORY: weakness COMPARISON STUDY: August 15, 2018 FINDINGS: The heart is normal in size. There is no failure. There is no focal pulmonary consolidation. There are no pleural effusions. There are equivocal subcentimeter left midlung zone nodules.[Given the reported prior history of head and neck carcinoma, a nonemergent chest CT should be considered in follow- up. IMPRESSION: 1. No evidence of failure 2. No evidence of focal pulmonary consolidation 3. Equivocal subcentimeter left midlung zone nodules. ACT 112: Negative or not required by law. Electronically signed by: Get Deunas M.D. 05/10/2019 5:55 PM Dictated: 05/10/[id number] Transcribed: 05/10/191752 CT soft tissue neck wo con CT DOSE: 382.47 mGy.cm CLINICAL HISTORY: Neck mass. Swollen lips. TECHNIQUE: Helical images were acquired without intravenous contrast. A dose lowering technique was utilized adhering to the principles of ALARA. COMPARISON STUDY: Neck CT scan performed August 2018 FINDINGS: Evaluation is limited given the lack of intravenously administered contrast. There is an enlarging mass within the right carotid space measuring in excess of 9 cm in maximal diameter. This extends to the right parapharyngeal space, and abuts the right internal carotid artery. There is air present within the mass suggesting ulceration/necrosis. There are small calcifications within the mass. There is pathologic adenopathy within the right cervical chain. There are bilateral upper lobe pulmonary nodules measuring up to 9 mm, i ndicative of metastatic disease. There are extensive calcifications in the region of the posterior longitudinal ligament most pronounced at the C4-5 level. There is secondary spinal canal narrowing. This finding was present on the preceding study IMPRESSION: 1. Marked enlargement in the size of a right neck mass with its epicenter in the right parotid space but with extension into the right parapharyngeal space. There is air present within the mass suggesting underlying ulceration/necrosis. The findings are indicative of recurrent/progressive neoplasm. 2. Pathologic right cervical lymphadenopathy 3. Bilateral pulmonary nodules indicative of metastatic disease. ACT 112: Negative or not required by law. Electronically signed by: Get Duenas M.D. 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 Soft Tissue Neck CT showed marked enlargement in the size of a right neck mass with its epicenter in the right parotid space but with extension into the right parapharyngeal space. There is air present within the mass suggesting underlying ulceration/necrosis. The findings are indicative of recurrent/progressive neoplasm. Wound culture collected on 05/09 grew proteus mirabilis Received IV Zosyn and Levaquin in the ER IV Zosyn changed to Unasyn for questionable lips swelling (I do not think that the lip swelling was related to the zosyn because pt had lip swelling before starting on Zosyn) Blood cx no growth WBC WNL Case discussed with oncology in [place] at [facility] NICOLE Whitehead recommended to hold on Xeroda while on IV abx due to risk of neutropenia Pt reports chronic swelling of right side of neck up into right ear and ride side of face and feels like she has had decreased swelling to ear and neck since Xeloda treatment. H/O radiation treatment several years ago. Will transition to oral abx with cipro since blood cx negative Continue chronic dexamethasone and oxycodone prn pain Follow up with your oncology next week. Imaging was burned on CD to bring to the Oncology Wound care consulted and pt refused any wound care until confirming with her oncology in [place] Continue Monitor Right Side facial/Lip swelling Mostly due to the right Neck mass Pt said that the chemo was helping with the swelling Continue dexamethasone and benadril prn Currently denies any problems of swallowing or SOB Advised pt to seek medical attention if develop any difficulty to breath, swallow or feel her tongue swelling (3) Hypokalemia: K 3.6 Monitor electrolytes Stable (4) Hypothyroidism: TSH: 4.0 Continue levothyroxine (5) GERD (gastroesophageal reflux disease): Continue PPI Lung Nodules CT showed bilateral pulmonary nodules indicative of metastatic disease. Finding discussed with patient Follow up with outpatient oncology DVT Prophylaxis Lovenox SQ Full Code Disposition Discharge home today Total Time Total Time Spent Total Time Spent (In Minutes): 35 minutes Total Time Includes: Examination of the Patient, Discharge Planning, Medication Reconciliation, Communication With Other Providers and Other Discharge Plan Discharge Items Patient Disposition: Home - Self-Care Reason For Visit: NECK MASS Discharge Diagnosis: Head and neck cancer Hypokalemia: Hypothyroidism: GERD (gastroesophageal reflux disease): Lung Nodules Activity: Resume your previous activity Non-emergency contact: Primary Care Provider Call non-emergency contact if: you have any medication questions and your temperature is above 101 Follow-up/Referrals: PCP,NO [Primary Care Provider] - Diet: Regular Addtl Attending Provider Instructions: Follow up with your primary care provider within 1 week Follow up with your oncology in [place] next week You will need to look for a primary care provider for routine check up Follow up with oncology for the Lung Nodules Complete the course of the antibiotic with cipro Do not drive or operate any machine after taking the Benadryl and narcotic due to risk of confusion, lethargy and drowsiness Do not take the Benadryl and oxycodone together (Hold them if you become drowsy and lethargy ) Advised pt to seek medical attention if develop any shortness of breath, tongue swelling and difficulty to swallow Pending Studies at Discharge: No Stand-Alone Forms: [email or web address], Smoking Cessation Medications and DC Order Prescriptions: New ciprofloxacin HCl 500 mg Tablet 500 mg PO BID 7 Days Qty: 14 RF: 0 diphenhydramine HCl [Benadryl] 25 mg Capsule 25 mg PO Q8H PRN (Reason: lip swelling) Qty: 30 RF: 0 Continued oxycodone 15 mg Tablet 15 mg PO Q4H PRN (Reason: Pain) RF: 0 lorazepam [Ativan] 1 mg Tablet 1 mg PO TID RF: 0 pantoprazole 40 mg tablet,delayed release (DR/EC) 40 mg PO QAM RF: 0 albuterol sulfate 2.5 mg /3 mL (0.083 %) solution for nebulization 3 mg inhalation Q4H PRN (Reason: Wheezing) RF: 0 albuterol sulfate [Ventolin HFA] 90 mcg/actuation HFA aerosol inhaler 2 puff inhalation Q4H PRN (Reason: Wheezing) RF: 0 potassium chloride 20 mEq tablet extended release 20 meq PO BID Qty: 60 RF: 1 magnesium oxide 400 mg (241.3 mg magnesium) tablet 400 mg PO BID Qty: 60 RF: 1 ondansetron HCl 8 mg tablet 8 mg PO DAILY PRN (Reason: Nausea) RF: 0 dexamethasone 2 mg tablet 1 mg PO BID RF: 0 levothyroxine 50 mcg tablet 50 mcg PO QAM RF: 0 lactulose 10 gram/15 mL solution 10 g PO TID RF: 0 capecitabine 500 mg tablet See Rx Instructions .ROUTE .COMPLEX RF: 0 Discharge Orders: Discharge Order (Routine); Ordered 05/13/19 Ordered By: Bakari Bertrand Admission Data Admit Date/Time: 05/10/19 20:48 Attending Provider: Bakari Bertrand Admit Provider: Ernie Overton Primary Care Provider: PCP,NO Other Providers: Ernie Overton Other Interventions: Discharge Summary Assessment (RN) Last Done: 05/13/19 10:47
[2019-05-14] MEDS ORDERED: CIPROFLOXACIN 500 MG TAB PO SCH (10:00)
== END 2019-05-13 11:05 | disposition home or self-care (01) | DRG 147 ==
LOC: ED 15:42 → SUATTDRO 20:48 → 2W 20:48

== ENCOUNTER 2019-06-03 12:16 | Inpatient (IN) ==
[2019-06-03] MEDS ORDERED: cefTRIAXone SODIUM 2,000 MG/70 ML BAG IV STA (12:45)
[2019-06-03] MEDS ORDERED: IBUPROFEN 200 MG TAB PO STA (12:45)
[2019-06-03 13:32] LABS: Basophils # (auto) 0.01 K/uL (0-0.2); Basophils % (auto) 0.1 %; Hematocrit (blood only) 39.8 % (37-47); Hemoglobin 13.1 g/dL (12.0-16.0); Immature Granulocytes # (auto) 0.26 K/uL (0.00-0.02); Immature Granulocytes % (auto) 2.4 %; Lymphocytes % (auto) 7.5 %; Mean Corpuscular Hemoglobin 30.9 pg (25-34); Mean Corpuscular Hgb Conc 32.9 g/dL (32-36); Mean Corpuscular Volume 93.9 fL (80-100); Mean Platelet Volume 9.4 fL (7.4-10.4); Monocytes # (auto) 0.72 K/uL (0.11-0.59); Monocytes % (auto) 6.8 %; Neutrophils # (auto) 8.86 K/uL (1.4-6.5); Neutrophils % (auto) 83.2 %; Platelet Count 244 K/uL (130-400); RDW Coefficient of Variation 15.1 % (11.5-14.5); RDW Standard Deviation 51.8 fL (36.4-46.3); Red Blood Count 4.24 M/uL (4.2-5.4); White Blood Count 10.65 K/uL (4.8-10.8)
--- NOTE | 2019-06-03 13:38 | Emergency Department Note ---
History of Present Illness General Chief complaint: Facial Injury/Pain Stated complaint: SWOLLEN FACE,FACIAL PAIN,CAN'T SWALLOW Time Seen by Provider: 06/03/19 12:36 Source: patient, RN notes reviewed and old records reviewed Mode of arrival: ambulatory Limitations: no limitations History of Present Illness Provider complaint: facial swelling Onset (ago): week(s) 2 Location: head and neck Radiation: non-radiation Severity: moderate Pain Consistency: + constant Maximum Pain Intensity: 7 Current Pain Intensity: 7 Quality: + dull Relieved By: + medication (Ibuprofen) Exacerbated By: + movement Associated symptoms: + shortness of breath Treatments prior to arrival: NSAID (Iburpofen) This is a 58-year-old female who returns back to the emergency department after having a full work-up yesterday including CAT scan of the face as well as chest. At that time the patient was told they she wished to be admitted however she left to bring her friend home. She arrives now to be admitted to the hospital. She recently spoke with her oncology doctor in [place]. She has no chest pain. Home Medications Home Medications Medication Instructions Recorded Confirmed Type lorazepam [Ativan] 1 mg PO TID 08/15/18 06/03/19 History oxycodone 15 - 45 mg PO Q3H PRN 08/15/18 06/03/19 History pantoprazole 40 mg PO QAM 08/15/18 06/03/19 History albuterol sulfate 3 mg INHALATION Q4H PRN 08/16/18 06/03/19 History albuterol sulfate [Ventolin HFA] 2 puff INHALATION Q4H PRN 08/16/18 06/03/19 History magnesium oxide 400 mg PO BID #60 tab 08/18/18 06/03/19 Rx potassium chloride 20 meq PO BID #60 tab 08/18/18 06/03/19 Rx capecitabine 500 mg PO UD 05/10/19 06/03/19 History dexamethasone 4 mg PO QAM 05/10/19 06/03/19 History lactulose 10 g PO TID 05/10/19 06/03/19 History levothyroxine 50 mcg PO QAM 05/10/19 06/03/19 History ondansetron HCl 8 mg PO DAILY PRN 05/10/19 06/03/19 History diphenhydramine HCl [Benadryl] 25 mg PO Q8H PRN #30 cap 05/13/19 06/03/19 Rx amoxicillin-pot clavulanate 1 tab PO Q12H 7 Days #14 tab 05/30/19 06/03/19 Rx [Augmentin] ibuprofen [Advil] 200 mg PO Q6H PRN 06/01/19 06/03/19 History Allergies Allergy/AdvReac Type Severity Reaction Status Date / Time piperacillin [From Zosyn] Allergy Mild lip Verified 06/03/19 13:01 swelling tazobactam [From Zosyn] Allergy Mild lip Verified 06/03/19 13:01 swelling cefepime Allergy Rash Verified 06/03/19 13:01 omeprazole [From Prilosec] Allergy Rash Verified 06/03/19 13:01 prednisone Allergy Unknown Verified 06/03/19 13:01 Past Med/Surg History Social History Preferred Language: Northern Irish Communication Ability: Effective 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 Beliefs That Will Affect Care: None marital status: Single Current Living Situation: Alone Current Living Situation Comment: lives alone in high rise apartment Feels Safe at Home: Yes Smoking Status: Former smoker Second Hand Exposure: No ; Hx Alcohol Use: No Hx Substance Use: No Review of Systems A total of 10 systems reviewed and were otherwise negative Physical Exam Vital Signs Vital Signs - 24 hr 06/03/19 12:18 06/03/19 14:02 06/03/19 14:06 Temperature 36.6 C Temperature Source Oral Pulse Rate 90 67 76 Pulse Rate from SpO2 Sensor 67 79 Respiratory Rate 20 18 15 Respiratory Effort / Characteristics Non-Labored Spontaneous Respiratory Depth Normal Respiratory Pattern Regular Blood Pressure 152/95 H 135/89 Blood Pressure Mean 114 93 Blood Pressure Position Sitting Pulse Oximetry 100 97 97 Oxygen Delivery Method Room Air Sepsis Recent Fever Within 48 Hours No Sepsis New/Unexplained Change in Mental Status No Sepsis Action Taken by Nursing No Action Required GENERAL: Patient is a healthy-appearing well-nourished female HEAD: Normocephalic atraumatic EYES: Ocular movements intact pupils equal and react to light OROPHARYNX mucous membranes are moist no exudates present no erythema or edema present NECK: Enlarged mass Rt face, exudate present CHEST: Good equal expansion LUNGS: Clear and equal to auscultation CARDIAC: Normal S1 and S2 ABDOMEN: Soft nontender no guarding BACK: No CVA tenderness EXTREMITIES: No pain upon palpation normal muscle strength in all groups no clubbing cyanosis or edema NEURO: Patient is following commands is answering questions appropriately. Alert and oriented x3 Cranial Nerves 2-12 grossly intact Course Administered Medications Discontinued Medications Ceftriaxone Sodium (Rocephin) 2,000 mg in 70 mls @ 140 mls/hr IV NOW STA Stop: 06/03/19 13:14 Last Admin: 06/03/19 13:59 Dose: 140 mls/hr Documented by: [id number] Ibuprofen (Advil) 400 mg PO NOW STA Stop: 06/03/19 12:46 Last Admin: 06/03/19 13:58 Dose: 400 mg Documented by: [id number] Medical Decision Making Differential Diagnosis Viral syndrome, tonsillitis, streptococcal pharyngitis, mononucleosis, peritonsillar abscess, retropharyngeal abscess, otitis, pneumonia, influenza, as well as other pathologies. Medical Records Attestation: I reviewed the patient's medical records. Home Medications Current Medication List: was personally reviewed by me Laboratory Data Attestation: I reviewed the patient's lab results. Result diagrams: 06/03/19 13:02 06/03/19 13:02 Lab Results 06/03/19 06/03/19 06/03/19 Range/Units 13:02 13:02 13:02 WBC 10.65 (4.8-10.8) K/uL RBC 4.24 (4.2-5.4) M/uL Hgb 13.1 (12.0-16.0) g/dL Hct 39.8 (37-47) % MCV 93.9 (80-100) fL MCH 30.9 (25-34) pg MCHC 32.9 (32-36) g/dL RDW Std Deviation 51.8 H (36.4-46.3) fL RDW Coeff of Ainsley 15.1 H (11.5-14.5) % Plt Count 244 (130-400) K/uL MPV 9.4 (7.4-10.4) fL Immature Gran % (Auto) 2.4 % Neut % (Auto) 83.2 % Lymph % (Auto) 7.5 % [place] % (Auto) 6.8 % Eos % (Auto) 0.0 % Baso % (Auto) 0.1 % Immature Gran # (Auto) 0.26 H (0.00-0.02) K/uL Neut # (Auto) 8.86 H (1.4-6.5) K/uL Lymph # (Auto) 0.80 L (1.2-3.4) K/uL [facility] [place] # (Auto) 0.72 H (0.11-0.59) K/uL Eos # (Auto) 0.00 (0-0.5) K/uL Baso # (Auto) 0.01 (0-0.2) K/uL PT 10.0 (9.0-12.0) Seconds INR 0.9 (0.9-1.1) Sodium 137 (136-145) mmol/L Potassium 3.7 (3.5-5.1) mmol/L Chloride 105 (98-107) mmol/L Carbon Dioxide 25 (21-32) mmol/L Anion Gap 7.0 (3-11) BUN 36 H (7-18) mg/dl Creatinine 1.33 H (0.6-1.2) mg/dl Est Cr Clr Drug Dosing 39.8 ml/min Est GFR ( Amer) 50.2 Est GFR (Non-Af Amer) 43.3 BUN/Creatinine Ratio 26.8 H (10-20) Glucose 161 H (70-99) mg/dl Calcium 8.9 (8.5-10.1) mg/dl Total Bilirubin 0.3 (0.2-1) mg/dl AST 31 (15-37) U/L ALT 37 (12-78) U/L Alkaline Phosphatase 93 (45-117) U/L Total Protein 6.6 (6.4-8.2) gm/dl Albumin 3.4 (3.4-5.0) gm/dl Globulin 3.2 (2.5-4.0) gm/dl Albumin/Globulin Ratio 1.1 (0.9-2) Specimen Hemolysis Blood Pressure Blood Pressure Findings: Elevated blood pressure Blood Pressure Disposition: elevated BP felt to be situational MDM Narrative This is a 58-year-old female who presents emergency department complaining of increased swelling in the right facial jaw. Patient has been here several times in the emergency department and each time there was intent made to admit her however she always went home. At this point she is here for admission. She was started on 2 g of IV Rocephin and given ibuprofen. I did discuss the case with the hospitalist service who did agree to admit the patient. Her images were reviewed from yesterday. Impression & Plan Neck mass, Facial swelling Discharge Plan Visit Data Chief Complaint: Facial Injury/Pain Stated Complaint: SWOLLEN FACE,FACIAL PAIN,CAN'T SWALLOW ED Provider: Kentrell Valencia Discharge Problem: Neck mass, Facial swelling Forms Stand Alone Forms: My [facility] Prescriptions Prescriptions: No Action oxycodone 15 mg Tablet 15 - 45 mg PO Q3H PRN (Reason: Pain) RF: 0 lorazepam [Ativan] 1 mg Tablet 1 mg PO TID RF: 0 pantoprazole 40 mg tablet,delayed release (DR/EC) 40 mg PO QAM RF: 0 albuterol sulfate 2.5 mg /3 mL (0.083 %) solution for nebulization 3 mg inhalation Q4H PRN (Reason: Wheezing) RF: 0 albuterol sulfate [Ventolin HFA] 90 mcg/actuation HFA aerosol inhaler 2 puff inhalation Q4H PRN (Reason: Wheezing) RF: 0 potassium chloride 20 mEq tablet extended release 20 meq PO BID Qty: 60 RF: 1 magnesium oxide 400 mg (241.3 mg magnesium) tablet 400 mg PO BID Qty: 60 RF: 1 ondansetron HCl 8 mg tablet 8 mg PO DAILY PRN (Reason: Nausea) RF: 0 dexamethasone 2 mg tablet 4 mg PO QAM RF: 0 levothyroxine 50 mcg tablet 50 mcg PO QAM RF: 0 lactulose 10 gram/15 mL solution 10 g PO TID RF: 0 capecitabine 500 mg tablet 500 mg PO UD RF: 0 diphenhydramine HCl [Benadryl] 25 mg Capsule 25 mg PO Q8H PRN (Reason: lip swelling) Qty: 30 RF: 0 amoxicillin-pot clavulanate [Augmentin] 875-125 mg tablet 1 tab PO Q12H 7 Days Qty: 14 RF: 0 ibuprofen [Advil] 200 mg Tablet 200 mg PO Q6H PRN (Reason: Outbreak) RF: 0
[2019-06-03 13:53] LABS: INR 0.9 (0.9-1.1)
[2019-06-03 13:58] LABS: Albumin Globulin Ratio 1.1 (0.9-2); Albumin Level 3.4 gm/dl (3.4-5.0); BUN Creatinine Ratio 26.8 (10-20); Bilirubin,Total 0.3 mg/dl (0.2-1); Calcium 8.9 mg/dl (8.5-10.1); Creatinine Clr Calc Pharmacy 39.8 ml/min; Est GFR (African American) 50.2; Est GFR (Non-African American) 43.3; Globulin 3.2 gm/dl (2.5-4.0); Potassium 3.7 mmol/L (3.5-5.1); Total Protein 6.6 gm/dl (6.4-8.2)
--- NOTE | 2019-06-03 15:38 | History & Physical Report ---
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 Patient unfortunately has had very fragmented care in the past and has been evaluated at several different institutions. -Most recent treatment was oral Xeloda, completed on 05/25 -Neck CT performed on 06/01/2019 demonstrated right jugular vein occlusion -Extensive facial swelling and paralysis, likely secondary to jugular vein compression from severe mass-effect -Case was discussed with ENT Dr. Corrigan; no surgical intervention to be offered at this time -Case was discussed with NICOLE Whitehead at [facility]. He reports that they had a phone conference with the patient yesterday and the patient was told that no further treatment options were being offered at this time. Hospice was recommended for the patient however she declined. -Prognosis is very poor given jugular vein and suspected carotid artery involvement. -Patient has been receiving oral dexamethasone 4 mg daily for palliation purposes, will transition to IV dexamethasone. -? Possible infection of right neck mass/necrotic site, wound culture from 05/09/2019 grew Proteus; sensitivities reviewed, will start empiric IV aztreonam and IV vancomycin; repeat culture (2) Hypothyroidism: -Continue levothyroxine (3) GERD (gastroesophageal reflux disease): -Continue PPI (4) DVT prophylaxis: -SCDs. Pharmacologic prophylaxis not ordered due to high risk of bleeding from mass-effect on jugular vein and suspected carotid artery involvement. History of Present Illness Chief Complaint: Facial swelling Primary Care Provider: TASHIA Bolden- 58-year-old female who presents the ED for evaluation of facial swelling. Patient with history of extensive head and neck cancer, currently being treated at [facility] in [place]. Patient's cancer history dates back to 2015 and she has received care at several different institutions. Patient most recently admitted to [facility] 05/10 through 05/13 for treatment of possible cellulitis of the external neck mass. Patient was seen in the ED on 05/29 and 05/31 for evaluation of right facial swelling. Patient was advised admission however she signed out AMA. During the 05/29 visit, patient was discharged on Augmentin. Patient reports she has been on oral Xeloda therapy until last week. She has had persistent/progressing right facial swelling and not paralysis. Patient denies shortness of breath or difficulty swallowing. No fevers or chills. Denies chest pain. No lightheadedness, dizziness, diaphoresis, syncopal event. Denies abdominal pain, nausea, vomiting, diarrhea. No urinary symptoms. In the ED, patient is hemodynamically stable. Labs show a mild elevation in creatinine of 1.3. She was given IV ceftriaxone. Allergies Allergy/AdvReac Type Severity Reaction Status Date / Time piperacillin [From Zosyn] Allergy Mild lip Verified 06/03/19 13:01 swelling tazobactam [From Zosyn] Allergy Mild lip Verified 06/03/19 13:01 swelling cefepime Allergy Rash Verified 06/03/19 13:01 omeprazole [From Prilosec] Allergy Rash Verified 06/03/19 13:01 prednisone Allergy Unknown Verified 06/03/19 13:01 Home Medications Home Medications Medication Instructions Recorded Confirmed Type lorazepam [Ativan] 1 mg PO TID 08/15/18 06/03/19 History oxycodone 15 - 45 mg PO Q3H PRN 08/15/18 06/03/19 History pantoprazole 40 mg PO QAM 08/15/18 06/03/19 History albuterol sulfate 3 mg INHALATION Q4H PRN 08/16/18 06/03/19 History albuterol sulfate [Ventolin HFA] 2 puff INHALATION Q4H PRN 08/16/18 06/03/19 History magnesium oxide 400 mg PO BID #60 tab 08/18/18 06/03/19 Rx potassium chloride 20 meq PO BID #60 tab 08/18/18 06/03/19 Rx capecitabine 500 mg PO UD 05/10/19 06/03/19 History dexamethasone 4 mg PO QAM 05/10/19 06/03/19 History lactulose 10 g PO TID 05/10/19 06/03/19 History levothyroxine 50 mcg PO QAM 05/10/19 06/03/19 History ondansetron HCl 8 mg PO DAILY PRN 05/10/19 06/03/19 History diphenhydramine HCl [Benadryl] 25 mg PO Q8H PRN #30 cap 05/13/19 06/03/19 Rx amoxicillin-pot clavulanate 1 tab PO Q12H 7 Days #14 tab 05/30/19 06/03/19 Rx [Augmentin] ibuprofen [Advil] 200 mg PO Q6H PRN 06/01/19 06/03/19 History Past Med/Surg History Medical History Cancer of neck Cholelithiasis GERD (gastroesophageal reflux disease) Head and neck cancer (Chronic) 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 Hypothyroidism Surgical History PEG (percutaneous endoscopic gastrostomy) status Removed Family History Other Cancer Heart disease Social History Preferred Language: Czech Communication Ability: Effective 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 Beliefs That Will Affect Care: None marital status: Single Current Living Situation: Alone Current Living Situation Comment: lives alone in high rise apartment Other Information That Helps Us Care for You: No Feels Safe at Home: Yes Safety Concerns: Feels Safe At This Time Smoking Status: Former smoker Do You Dip or Chew Tobacco: No ; Second Hand E xposure: No ; Tobacco Cessation Education Requested by Patient: No Hx Alcohol Use: No Hx Substance Use: Yes substance use type: opiates and prescription drug Substance Use Type Other:: oxycodone Last Used Substance: Unknown Review of Systems Review of Systems: ROS per HPI, all other systems reviewed and negative Physical Exam Constitutional: WD/WN, vitals as above Eyes: PERRL, conjunctivae normal, anicteric sclerae ENMT: Ears: + external ear abnormality Nose: no external nose abnormality Mouth: + oropharynx abnormality Extensive mass/necrosis noted to right sided neck with extension and involvement of the right ear; associated right facial swelling and paralysis Respiratory: normal respiratory effort, lungs clear to auscultation Cardiovascular: Rate/Rhythm: regular rate and regular rhythm Vessels: normal peripheral pulses Extremities: no edema Gastrointestinal (Abdomen): normal bowel sounds, soft, nontender, no hepatosplenomegaly Musculoskeletal: no cyanosis or clubbing, extremities motor strength 5/5 Skin: no rashes, warm and dry Neurologic: PERRL, EOMI, accommodation nl, no face palsy, no dysarthria Psychiatric: A+Ox3, euthymic affect Results & Data Vital Signs (Past 12 Hours) Vital Signs Temp Pulse Resp BP Pulse Ox 06/03/19 15:01 70 13 97 06/03/19 15:00 76 15 138/79 98 06/03/19 14:31 70 14 97 06/03/19 14:30 75 15 118/85 97 06/03/19 14:06 76 15 97 06/03/19 14:02 67 18 135/89 97 06/03/19 12:18 36.6 C 90 20 152/95 H 100 Laboratory Results Short CBC 06/03/19 Range/Units 13:02 WBC 10.65 (4.8-10.8) K/uL Hgb 13.1 (12.0-16.0) g/dL Hct 39.8 (37-47) % Plt Count 244 (130-400) K/uL BMP 06/03/19 13:02 Sodium 137 Potassium 3.7 Chloride 105 Carbon Dioxide 25 BUN 36 H Creatinine 1.33 H Glucose 161 H Calcium 8.9 Liver Function 06/03/19 Range/Units 13:02 Total Bilirubin 0.3 (0.2-1) mg/dl AST 31 (15-37) U/L ALT 37 (12-78) U/L Alkaline Phosphatase 93 (45-117) U/L Albumin 3.4 (3.4-5.0) gm/dl Diagnostic Findings CT CHEST IMPRESSION (06/01/2019): 1. Ill-defined patchy groundglass opacities of the right upper and middle lobes are suggestive of a nonspecific infectious or inflammatory pneumonitis. 2. Bilateral pulmonary metastasis are new from the 08/15/[address] 3. Metastatic centrally necrotic mediastinal and likely metastatic axillary chain lymph nodes are also new from 08/15/2018 4. Healing subacute nondisplaced fractures of the anterolateral right fifth, seventh and eighth ribs. 5. Cholelithiasis. SOFT TISSUE NECK CT IMPRESSION (06/01/2019): 1. Stable exam from the study obtained on 05/26/2019 with redemonstration of a large and invasive centrally necrotic mass of the right face centered about the parotid gland with extension into the adjacent musculature and soft tissues, better evaluated on the comparison study with IV contrast. 2. 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 3. Metastatic bilateral cervical chain adenopathy with metastatic upper mediastinal lymph nodes. 4. Metastatic pulmonary nodules redemonstrated. Code Status & VTE Plan Code Status Patient is a full code as per my discussion with her. VTE Prophylaxis Plan VTE Prophylaxis will be ordered: Yes Supervising Physician Co-Signing Physician Notes I have seen and examined the patient and have discussed the case with the provider above. I agree with the assessment and plan as stated withe the following exceptions. Ms. Martinez is a 58 yo F with a squamous cell carcinoma of her right face and neck. She has been through chemotherapy and radiation treatments which have provided some relief and treatment of this tumor. However, recently she has had increased swelling and right-sided nerve compression to the facial muscles. She is unable to close her right eye completely. Her tumor is invading her airway (seen on CT scan) and is growing out through her right ear. She has active oozing of blood as I am speaking with her that is coming from her external auditory meatus. (Per nursing she was picking at this area earlier). She is not on blood thinners, but takes Ibuprofen on occasion. For pain, she relies on heavy doses of oxycodone. She was recently seen at [facility], and no further treatments for her cancer were recommended. She is reporting being afraid and wanting to continue the search for a treatment moving forward. Where that is the case, I advised her on CPR a nd resuscitation if that were to be needed, and she still wishes to be a full code. She is stable hemodynamically and is mentating clearly. Physical exam is consistent with that described above. She otherwise has a normal heart and lung exam and no other gross focal deficits except for the cranial nerve issues described above. She is ambulating at baseline and is eating without issue. She denies any issues with breathing recently. Agree with Decadron to attempt to get the swelling down and trial some empiric antibiotics with tumor necrosis seen on imaging. Case was discussed with ENT regional medical director, Dr Corrigan, who is limiting his exposure to coronavirus and coming to the hospital but gave advice that there was no surgical option here right now. Monitor for clinical response, and advised her to continue her search for a treatment program if that was her wish, understanding we wouldn't be able to offer anything new here at this time. She verbalized understanding. Consulted Palliative Care to continue the discussion with she and her sons and help her with her treatment goals as things develop. Antonino, DO
[2019-06-03] MEDS ORDERED: DEXAMETHASONE SOD INJ 4 MG/ML VIAL IV STA (15:55)
[2019-06-03] MEDS ORDERED: VANCOMYCIN CONSULT ACTIVE PRN (15:55)
[2019-06-03] MEDS ORDERED: MoRPHine SULFATE 4 MG/ML 1 ML CARP\\VIAL IV PRN (15:55)
[2019-06-03] MEDS ORDERED: DEXAMETHASONE SOD PHOSPHATE 10 MG in SYRINGE 0 ML IV ONE (16:15)
[2019-06-03] MEDS ORDERED: VANCOMYCIN HCL 1,750 MG in SODIUM CHLORIDE 0.9% 500 ML IV ONE (16:30)
[2019-06-03] MEDS: SODIUM CHLORIDE 0.9% 1000ML 1,000 ML IV SCH (16:59)
[2019-06-03] MEDS: AZTREONAM 2,000 MG in DEXTROSE 5% 100 ML IV SCH (16:59)
--- NOTE | 2019-06-03 18:36 | Pharmacy Report ---
Pharmacy Abx Initial Consult - Date of Service June 03, 2019 - Pharmacy Dosing Scope Date of Consult: 06/03/2019 Consultation requested by: Meli Bravo Pharmacy is consulted to initiate vancomycin IV dosing therapy, order appropriate labs and adjust drug dose/frequency. - Subjective The patient is a 58 year old F admitted on 06/03/19 14:17. - Objective Height: 5 ft 1 in Weight: 68.5 kg Vital Signs (Past 12hrs): Vital Signs Temp Pulse Pulse Resp BP BP Pulse Ox 06/03/19 16:00 36.9 C 67 20 141/82 H 97 06/03/19 15:01 70 13 97 06/03/19 15:00 76 15 138/79 98 06/03/19 14:31 70 14 97 06/03/19 14:30 75 15 118/85 97 06/03/19 14:06 76 15 97 06/03/19 14:02 67 18 135/89 97 06/03/19 12:18 36.6 C 90 20 152/95 H 100 Lab Results (24hrs): Laboratory Tests (24 Hours) 06/03/19 06/03/19 13:02 13:02 WBC 10.65 Neut # (Auto) 8.86 H Creatinine 1.33 H Est Cr Clr Drug Dosing 39.8 Micro Results: 06/03/19 16:43 Gram Stain - Pending Neck Wound Culture - Pending 06/03/19 13:02 Aerobic Blood Culture - Pending Blood Anaerobic Blood Culture - Pending 06/03/19 13:16 Aerobic Blood Culture - Pending Blood Anaerobic Blood Culture - Pending - Risk Factors for Resistance * Augmentin * Head and Neck cancer being treated currently * Recently on Xeloda - Assessment & Plan Assessment 58 year old F admitted with worsening head and neck swelling Plan vancomycin for treatment of cellulitis Vancomycin IV * Estimated PK Parameters: Vd 0.7 L/kg, You 0.04 hr-1, t1/2 17 hr * Loading dose: 1750 mg (25 mg/kg) * Maintenance dose: 750 mg IV (11 mg/kg) every 12 hours * Goal trough level for cellulitis : ~15 mcg/mL * Trough ordered for 06/05/19 Pharmacy will continue to follow and will adjust dose/frequency as necessary. Thank you.
[2019-06-03] MEDS: OXYCODONE HCL IR 5 MG TAB (IMMEDIATE RELEASE) PO PRN (20:18)
[2019-06-03] MEDS ORDERED: DEXAMETHASONE SOD INJ 4 MG/ML VIAL IV SCH (21:00)
[2019-06-03] MEDS: DEXAMETHASONE SOD PHOSPHATE 4 MG in SYRINGE 0 ML IV SCH (21:39)
[2019-06-04] MEDS: AZTREONAM 2,000 MG in DEXTROSE 5% 100 ML IV SCH ×3 (00:56→15:40)
[2019-06-04] MEDS: OXYCODONE HCL IR 5 MG TAB (IMMEDIATE RELEASE) PO PRN ×5 (00:58→21:19)
[2019-06-04] MEDS: DEXAMETHASONE SOD PHOSPHATE 4 MG in SYRINGE 0 ML IV SCH ×4 (04:09→21:19)
[2019-06-04] MEDS: LORazepam 1 MG TAB PO PRN ×2 (05:23→11:58)
[2019-06-04] MEDS: VANCOMYCIN HCL 750 MG in SODIUM CHLORIDE 0.9% 250 ML IV SCH ×2 (05:50→16:52)
[2019-06-04] MEDS: LEVOTHYROXINE SODIUM 50 MCG TABLET PO SCH (05:56)
[2019-06-04 06:07] LABS: Hematocrit (blood only) 39.2 % (37-47); Mean Corpuscular Hemoglobin 30.7 pg (25-34); Mean Corpuscular Hgb Conc 33.2 g/dL (32-36); Mean Corpuscular Volume 92.5 fL (80-100); Mean Platelet Volume 9.4 fL (7.4-10.4); Platelet Count 237 K/uL (130-400); RDW Standard Deviation 50.2 fL (36.4-46.3); Red Blood Count 4.24 M/uL (4.2-5.4); White Blood Count 11.31 K/uL (4.8-10.8)
[2019-06-04] MEDS ORDERED: Nursing to Pharmacy Communication ONE ×2 (06:47→12:35)
[2019-06-04 06:53] LABS: BUN Creatinine Ratio 28.9 (10-20); Creatinine Clr Calc Pharmacy 56.1 ml/min; Est GFR (African American) 76.4; Est GFR (Non-African American) 65.9; Potassium 4.1 mmol/L (3.5-5.1)
[2019-06-04] MEDS: PANTOprazole 40 MG TAB PO SCH (08:21)
[2019-06-04] MEDS ORDERED: MAGNESIUM OXIDE 400 MG TAB PO SCH (09:00)
[2019-06-04] MEDS ORDERED: POTASSIUM CHLORIDE 20 MEQ TABCR PO SCH (09:00)
[2019-06-04] MEDS: ACETAMINOPHEN 325 MG TAB PO PRN (11:01)
[2019-06-04] MEDS: POTASSIUM CHLORIDE 20 MEQ TABCR PO SCH (13:14)
[2019-06-04] MEDS: MAGNESIUM OXIDE 400 MG TAB PO SCH (13:14)
[2019-06-04] MEDS: SODIUM CHLORIDE 0.9% 1000ML 1,000 ML IV SCH (16:50)
--- NOTE | 2019-06-04 19:13 | Hospitalist Progress Note ---
Date of Service June 04, 2019 Assessment & Plan (1) Head and neck cancer: Squamous cell carcinoma of head and neck diagnosed about 5 years ago. Has been seen at several cancer centers, most recently [facility] [place] in [place]. Has received radiation therapy as well as various chemotherapies. Unfortunately, progressive disease locally with extension as well as metastases to lungs. Has serosanguineous drainage from the mass. CT imaging demonstrates necrosis. Worsening swelling of face and neck associated with discomfort. May or may not have associated soft tissue infection. Continue IV antibiotics. Continue dexamethasone for worsening swelling of mass. Patient would like to continue receiving aggressive management of her malignancy, but has been informed by [facility] that they do not have any other therapeutic options likely to be beneficial. (2) GERD (gastroesophageal reflux disease): Continue PPI. (3) Palliative care encounter: Current status, concerns, resuscitation status discussed by my colleague Dr. Muñiz day of admission. Patient realizes that she has advanced cancer that is progressive and metastatic, but she is hoping for a miracle and wishes to have resuscitation attempted in the event of a cardiopulmonary arrest. She did agree to speak with Palliative Care about treatment goals and related issues. Palliative Care consulted. (4) DVT prophylaxis: No anticoagulants because of bleeding from neck mass. SCDs. Ambulate. (5) Discharge planning issues: Discharge disposition to be determined. Admission and Anticipated Discharge Date Admission Date: June 03, 2019 Subjective Recheck for head neck cancer and other problems. Patient seen in their room around 1500. Ongoing right neck/face discomfort. Would like some ibuprofen. Constipated, requesting lactulose. No fever. Review of Systems: Constitutional- as noted above. Cardiac- no chest pain. Pulmonary- no cough or SOB. GI- no nausea, vomiting, diarrhea, melena, hematochezia. - no urinary symptoms. Otherwise, as noted above. Physical Exam Constitutional: no acute distress ENMT: external ear and nose normal, oropharynx normal (large right neck mass invading right ear) Neck: + abnormal visual inspection (large right neck mass with serosanguinous drainage) Respiratory: no respiratory distress Auscultation: lungs clear to auscultation bilaterally Cardiovascular: Rate/Rhythm: regular rate and regular rhythm Vessels: no JVD Extremities: no calf tenderness and no edema Gastrointestinal (Abdomen): normal bowel sounds, soft, nontender, no hepatosplenomegaly Skin: no rashes, warm and dry Psychiatric: Orientation: alert and oriented x 3 Results & Data ([facility]) Vital Signs (Past 12 Hours) Vital Signs Temp Pulse Pulse Resp BP Pulse Ox 06/04/19 11:42 37.2 C 90 18 132/81 98 06/04/19 07:34 36.7 C 61 18 114/73 97 06/04/19 07:19 60 Laboratory Results Laboratory Results - last 24 hr 06/04/19 06/04/19 05:46 05:46 WBC 11.31 H RBC 4.24 Hgb 13.0 Hct 39.2 MCV 92.5 MCH 30.7 MCHC 33.2 RDW Std Deviation 50.2 H RDW Coeff of Ainsley 15.0 H Plt Count 237 MPV 9.4 Sodium 136 Potassium 4.1 Chloride 103 Carbon Dioxide 26 Anion Gap 7.0 BUN 27 H Creatinine 0.94 D Est Cr Clr Drug Dosing 56.1 Est GFR ( Amer) 76.4 Est GFR (Non-Af Amer) 65.9 BUN/Creatinine Ratio 28.9 H Glucose 134 H Calcium 9.0 Microbiology 06/03/19 13:02 Blood Aerobic Blood Culture - Preliminary No growth in Aerobic bottle after 24 hours. 06/03/19 13:02 Blood Anaerobic Blood Culture - Preliminary No growth in Anaerobic bottle after 24 hours. 06/03/19 13:16 Blood Aerobic Blood Culture - Preliminary No growth in Aerobic bottle after 24 hours. 06/03/19 13:16 Blood Anaerobic Blood Culture - Preliminary No growth in Anaerobic bottle after 24 hours. 06/03/19 16:43 Neck Gram Stain - Final 06/03/19 16:43 Neck Wound Culture - Preliminary Pin-point growth present, reincubating.
[2019-06-04] MEDS: LACTULOSE SYRUP 20 GM/30 ML UDC PO SCH (20:39)
[2019-06-05] MEDS: AZTREONAM 2,000 MG in DEXTROSE 5% 100 ML IV SCH ×3 (00:28→16:34)
[2019-06-05] MEDS: SODIUM CHLORIDE 0.9% 1000ML 1,000 ML IV SCH ×3 (00:50→13:15)
[2019-06-05] MEDS: DEXAMETHASONE SOD PHOSPHATE 4 MG in SYRINGE 0 ML IV SCH ×4 (03:38→20:58)
[2019-06-05] MEDS ORDERED: VANCOMYCIN TROUGH ONE (05:30)
[2019-06-05 06:28] LABS: BUN Creatinine Ratio 27.9 (10-20); Creatinine Clr Calc Pharmacy 57.9 ml/min; Est GFR (African American) 79.5; Est GFR (Non-African American) 68.6; Potassium 4.1 mmol/L (3.5-5.1)
--- NOTE | 2019-06-05 06:39 | Ultrasound Report ---
US venous doppler UE RT HISTORY: 58 years-old Female RUE swelling acute pain and swelling of the right upper extremity COMPARISON: None TECHNIQUE: Multiple real-time sonographic images of the right upper extremity deep venous structures were obtained assessing grayscale appearance, color and spectral flow FINDINGS: The internal jugular vein is not well visualized secondary to reported overlying soft tissue/dermal a bnormality. Normal flow and phasicity of the right upper extremity deep venous structures. Occlusive superficial venous thrombosis of the basilic vein level of the distal upper arm measures up to approx imately 4.0 cm. Mild subcutaneous edema of the forearm. Patent cephalic vein. IMPRESSION: 1. No sonographic evidence of deep venous thrombosis. 2. Occlusive superficial venous thrombosis of the distal basilic vein. ACT 112: Negative or not required by law. The above report was generated using voice recognition software. It may contain grammatical, syntax o r spelling errors. Electronically signed by: Harmeet Navas M.D. 06/05/2019 6:38 AM
[2019-06-05] MEDS: LEVOTHYROXINE SODIUM 50 MCG TABLET PO SCH (06:46)
[2019-06-05] MEDS: VANCOMYCIN HCL 750 MG in SODIUM CHLORIDE 0.9% 250 ML IV SCH ×2 (07:29→18:41)
[2019-06-05] MEDS: LORazepam 1 MG TAB PO PRN ×2 (07:33→16:42)
[2019-06-05] MEDS: LACTULOSE SYRUP 20 GM/30 ML UDC PO SCH ×3 (07:33→20:56)
[2019-06-05] MEDS: POTASSIUM CHLORIDE 20 MEQ TABCR PO SCH ×2 (07:34→13:16)
[2019-06-05] MEDS: MAGNESIUM OXIDE 400 MG TAB PO SCH ×2 (07:34→13:17)
[2019-06-05] MEDS: PANTOprazole 40 MG TAB PO SCH (07:35)
[2019-06-05] MEDS: OXYCODONE HCL IR 5 MG TAB (IMMEDIATE RELEASE) PO PRN ×3 (09:39→20:00)
--- NOTE | 2019-06-05 12:06 | Pharmacy Report ---
Pharmacy Abx Dose Short Note - Date of Service June 05, 2019 - Assessment & Plan Assessment 58 year old F receiving Vancomycin 750 mg IV q12h for treatment of neck wound. Patient is immunocompromised with recent chemotherapy for head and neck cancer. Today is Day #3 of Vancomycin therapy. Trough Vanc level obtained today after 2 maintenance doses = 14.6. Level is not at steady state. Plan Vancomycin * Trough level of 14.6 mcg/mL is therapeutic for cellulitis. Goal trough ~15 mcg/ml. * Level obtained after 2 maintenance doses is not yet at steady state. Level may go slightly higher with repeated doses but do not expect it to rise beyond 20 mcg/ml which is the upper limit of goal trough range. * Continue dose of Vancomycin 750 mg IV q12h. * Will re-check trough in about 3 days if therapy continues. Pharmacy will continue to follow and will adjust dose/frequency as necessary. Thank you.
[2019-06-05] MEDS: ARTIFICIAL TEARS OP OINT 3.5 GM TUBE OPR SCH ×3 (13:15→20:56)
--- NOTE | 2019-06-05 20:28 | Hospitalist Progress Note ---
Date of Service June 05, 2019 Assessment & Plan (1) Head and neck cancer: Squamous cell carcinoma of head and neck diagnosed about 5 years ago. Has been seen at several cancer centers, most recently [facility] [place] in [place]. Has received radiation therapy as well as various chemotherapies. Unfortunately, she has progressive disease with local extension as well as metastases to lungs. Has serosanguineous drainage from the mass. CT imaging demonstrates necrosis. Worsening swelling of face and neck associated with discomfort. May or may not have associated soft tissue infection. Continue IV antibiotics. Continue dexamethasone for worsening swelling of mass. Patient would like to continue receiving aggressive management of her malignancy, but has been informed by [facility] that they do not have any other therapeutic options likely to be beneficial. Patient requests consideration of additional treatment. Consult Medical Oncology and Radiation oncology. (2) GERD (gastroesophageal reflux disease): Continue PPI. (3) Superficial venous thrombosis of right upper extremity: Patient experienced some pain and swelling of her RUE after IV infusion. Venous duplex demonstrated superficial thrombosis right basilic vein. Difficult to determine when superficial thrombosis occurred. No indication for anticoagulation. Warm compresses / elevation. (4) Palliative care encounter: Current status, concerns, resuscitation status discussed by my colleague Dr. Antonino lambert of admission. Patient realizes that she has advanced cancer that is progressive and metastatic, but she is hoping for a miracle and wishes to have resuscitation attempted in the event of a cardiopulmonary arrest. She did agree to speak with Palliative Care about treatment goals and related issues. Palliative Care consulted. (5) DVT prophylaxis: No anticoagulants because of bleeding from neck mass. SCDs. Ambulate. (6) Discharge planning issues: Discharge disposition to be determined. Son Sharath given update by phone. Admission and Anticipated Discharge Date Admission Date: June 03, 2019 Subjective Recheck for head neck cancer and other problems. Patient seen in their room around 1110. Ongoing right neck/face discomfort. No fever. Minimal improvement, if any, since starting antibiotics and IV dexamethasone. Wondering what can be done for her progressive cancer. Upset that providers at [facility] indicated that they had no further therapies to recommend. Does not want to give up hope. Requests that I call her son Sharath with update. Review of Systems: Constitutional- as noted above. Cardiac- no chest pain. Pulmonary- no cough or SOB. GI- no nausea, vomiting, diarrhea, melena, hematochezia. - no urinary symptoms. Otherwise, as noted above. Physical Exam Constitutional: no acute distress ENMT: external ear and nose normal, oropharynx normal (large right neck mass invading right ear) Neck: + abnormal visual inspection (large right neck mass with serosanguinous drainage) Respiratory: no respiratory distress Auscultation: lungs clear to auscultation bilaterally Cardiovascular: Rate/Rhythm: regular rate and regular rhythm Vessels: no JVD Extremities: no calf tenderness and no edema Gastrointestinal (Abdomen): normal bowel sounds, soft, nontender, no hepatosplenomegaly Skin: no rashes, warm and dry Psychiatric: Orientation: alert and oriented x 3 Affect: + tearful affect Results & Data ([facility]) Vital Signs (Past 12 Hours) Vital Signs Temp Pulse Pulse Resp BP Pulse Ox 06/05/19 19:27 36.6 C 66 16 136/92 95 06/05/19 16:30 36.6 C 74 18 156/82 H 98 06/05/19 15:02 69 06/05/19 12:07 36.6 C 72 18 145/80 H 95 06/05/19 09:55 66 Laboratory Results Laboratory Results - last 24 hr 06/05/19 06/05/19 05:30 05:30 Sodium 134 L Potassium 4.1 Chloride 103 Carbon Dioxide 26 Anion Gap 5.0 BUN 25 H Creatinine 0.91 Est Cr Clr Drug Dosing 57.9 Est GFR ( Amer) 79.5 Est GFR (Non-Af Amer) 68.6 BUN/Creatinine Ratio 27.9 H Glucose 123 H Calcium 9.0 Vancomycin Trough 14.6 Microbiology 06/03/19 13:02 Blood Aerobic Blood Culture - Preliminary No growth in Aerobic bottle after 48 hours. 06/03/19 13:02 Blood Anaerobic Blood Culture - Preliminary No growth in Anaerobic bottle after 48 hours. 06/03/19 13:16 Blood Aerobic Blood Culture - Preliminary No growth in Aerobic bottle after 48 hours. 06/03/19 13:16 Blood Anaerobic Blood Culture - Preliminary No growth in Anaerobic bottle after 48 hours. 06/03/19 16:43 Neck Gram Stain - Final 06/03/19 16:43 Neck Wound Culture - Final Corynebacterium species
[2019-06-06] MEDS: AZTREONAM 2,000 MG in DEXTROSE 5% 100 ML IV SCH ×3 (00:27→17:02)
[2019-06-06] MEDS: OXYCODONE HCL IR 5 MG TAB (IMMEDIATE RELEASE) PO PRN (03:22)
[2019-06-06] MEDS: DEXAMETHASONE SOD PHOSPHATE 4 MG in SYRINGE 0 ML IV SCH ×4 (04:58→22:04)
[2019-06-06] MEDS: VANCOMYCIN HCL 750 MG in SODIUM CHLORIDE 0.9% 250 ML IV SCH ×2 (05:00→18:12)
[2019-06-06] MEDS: LEVOTHYROXINE SODIUM 50 MCG TABLET PO SCH (06:18)
[2019-06-06 06:28] LABS: BUN Creatinine Ratio 30.3 (10-20); Calcium 9.4 mg/dl (8.5-10.1); Creatinine Clr Calc Pharmacy 60.5 ml/min; Est GFR (African American) 83.9; Est GFR (Non-African American) 72.4
[2019-06-06] MEDS: LACTULOSE SYRUP 20 GM/30 ML UDC PO SCH ×3 (07:54→18:13)
[2019-06-06] MEDS: ARTIFICIAL TEARS OP OINT 3.5 GM TUBE OPR SCH ×4 (07:55→22:04)
[2019-06-06] MEDS: MAGNESIUM OXIDE 400 MG TAB PO SCH ×2 (07:55→14:37)
[2019-06-06] MEDS: PANTOprazole 40 MG TAB PO SCH (07:55)
--- NOTE | 2019-06-06 09:08 | Palliative Care Consultation ---
Date of Consultation June 06, 2019 Assessment & Plan (1) Goals of care, counseling/discussion: This is a very unfortunate 58 year old who presented to the [facility] ED with right facial swelling. Ms. Martinez has extensive head and neck cancer and is a patient at [facility] in [place], [place] which was originally diagnosed in 2014, receiving care at numerous locations/facilities. Her most recent treatment was oral Xeloda, receiving her dose on May 25. She has also had a recent admission from May 10-May 13 for likely cellulitis of her neck and most recently signed out AMA from the ED on May 29 for similar symptoms. The patient has been informed by [facility] that no further treatment options were available for her. Dr. Clark was consulted for evaluation for any surgical intervention and at this time, was deemed not a candidate for surgery. Additional PMH includes Hypothyroidism and GERD. Palliative Care was consulted to discuss goals of care. -I met with the patient in room 254. The patient is AAOx4 and appears to not have any apparent distress. -I introduced palliative care and she said "so that is the step right before dying"? We talked about its benefits from a symptom/pain management and goals of care standpoint. -She went into a detailed conversation about her understanding that her cancer is not curative, but also she feels there "is something still out there" from a treatment standpoint. She stated that itching her tumor relieves discomfort, apparently per nursing it was oozing and bleeding this morning. Currently, no dysphagia or difficulty eating or breathing. -Currently, she said she "always has pain, but pain to her means she is alive". She currently has Oxycodone 15 mg PO Q3 PRN and has utilized FOUR doses over the past 24 hours. She also has taken 1 dose of Tylenol for a headache today. - Could consider a long-acting medication, but at this time she is comfortable with her current medication regimen. -Anxiety and emotional pain appear to be large components of her inability to focus on her goals right now. She was very tearful during my visit and just stated "I am not ready to " repeatedly. We talked about what that meant to her and if she felt something was left undone or what her main concerns were. She says she feels like she will alone. I encouraged her to speak with her son about her feelings. -She has Ativan 1 mg IV TID PRN ordered and has utilized ONE dose over the past 24 hours. I hesitate to order this scheduled for now as her respiratory compromise and airway management poses a concern. Until we have code status confirmed, I would continue to offer this PRN. -Currently, the patient denies any dysphagia or difficulty with eating. Unfortunately, I do see this likely becoming a problem and have worries about airway management. We discussed her wishes and, at this time, she understands the risks of attempting to be resuscitated and would like to remain a full code. She stated "well, if I decline, I wouldn't know the different if I had CPR or not" -Her son, Sharath, called when I was in the room. She did not want me to talk to him. She does have two sons: Sharath and Jake who both work in [employer], -Ultimately, the patient is receptive to returning home with Home Health. Choosing an agency that can provide Hospice services as a transitionary period, would be preferred. This was discussed with Case management. -Palliative care will continue our conversations with her and develop rapport, and assist with goals and symptoms. -PPS: 30% (2) Head and neck cancer: (3) Facial swelling: Supervising Physician Co-Signing Physician Notes Chart reviewed, patient seen and examined. Patient awake and alert, currently using an ice pack to the her forehead and right side of face. Patient does complain of increased pressure across the right frontal sinus- patient states that she pushes just in front of her ear she is able to induce some drainage which relieves some of her pressure. Patient states that the tumor growth on the right side of her face was stable on Xeloda, upon further questioning there was some increased size of mass while on Xeloda. Patient feels there must be somewhere where someone would have something more to offer her regarding treatment. Patient has sought care at multiple teaching facilities including [facility] and [facility]. Patient states that Rad Onc at [facility] told her they would not radiate that area given the involvement of her carotid artery. Patient's 2 sons live in [place]-she last saw 1 of her sons approximately 1 month ago. Patient understands that this tumor could erode into her vasculature and she could bleed out, or may continue to grow and interfere with breathing and swallowing. Currently patient denies any dysphagia. PE: Patient awake and alert, mild distress due to headache HEENT: Mild ptosis right eye, large fungating mass with areas of erosion right lateral neck area-mass causing significant facial deformity and protrusion of right ear. Mass has areas of necrosis, no significant drainage. Respirations: Unlabored CV: Regular rate, no edema Abdomen: Not distended Extremities: Full range of motion Neuro: Alert and oriented x4 Agree with above note, assessment and plan as per NICOLE Lim-we will continue to follow and assist patient with medical decision making. History of Present Illness Reason for Consultation: Goals of Care Requesting Physician: Dr. Muñiz Attending Physician: Satnam Rojas MD History of Present Illness This is a very unfortunate 58 year old who presented to the [facility] ED with right facial swelling. Ms. Martinez has extensive head and neck cancer and is a patient at [facility] in [place], [place] which was originally diagnosed in 2015, receiving care at numerous locations/facilities. Her most recent treatment was oral Xeloda, receiving her dose on May 25. She has also had a recent admission from May 10-May 13 for likely cellulitis of her neck and most recently signed out AMA from the ED on May 29 for similar symptoms. The patient has been informed by [facility] that no further treatment options were available for her. Dr. Clark was consulted for evaluation for any surgical intervention and at this time, was deemed not a candidate for surgery. Additional PMH includes Hypothyroidism and GERD. Palliative Care was consulted to discuss goals of care. Please see A/P for further details. Thank you kindly for involving the Palliative Care Team with this patient. Allergies Allergy/AdvReac Type Severity Reaction Status Date / Time piperacillin [From Zosyn] Allergy Mild lip Verified 06/03/19 13:01 swelling tazobactam [From Zosyn] Allergy Mild lip Verified 06/03/19 13:01 swelling cefepime Allergy Rash Verified 06/03/19 13:01 omeprazole [From Prilosec] Allergy Rash Verified 06/03/19 13:01 prednisone Allergy Unknown Verified 06/03/19 13:01 Home Medications Home Medications Medication Instructions Recorded Confirmed Type lorazepam [Ativan] 1 mg PO TID 08/15/18 06/03/19 History oxycodone 15 - 45 mg PO Q3H PRN 08/15/18 06/03/19 History pantoprazole 40 mg PO QAM 08/15/18 06/03/19 History albuterol sulfate 3 mg INHALATION Q4H PRN 08/16/18 06/03/19 History albuterol sulfate [Ventolin HFA] 2 puff INHALATION Q4H PRN 08/16/18 06/03/19 History magnesium oxide 400 mg PO BID #60 tab 08/18/18 06/03/19 Rx potassium chloride 20 meq PO BID #60 tab 08/18/18 06/03/19 Rx capecitabine 500 mg PO UD 05/10/19 06/03/19 History dexamethasone 4 mg PO QAM 05/10/19 06/03/19 History lactulose 10 g PO TID 05/10/19 06/03/19 History levothyroxine 50 mcg PO QAM 05/10/19 06/03/19 History ondansetron HCl 8 mg PO DAILY PRN 05/10/19 06/03/19 History diphenhydramine HCl [Benadryl] 25 mg PO Q8H PRN #30 cap 05/13/19 06/03/19 Rx amoxicillin-pot clavulanate 1 tab PO Q12H 7 Days #14 tab 05/30/19 06/03/19 Rx [Augmentin] ibuprofen [Advil] 200 mg PO Q6H PRN 06/01/19 06/03/19 History Patient History Medical History (Updated 06/06/19 @ 09:31 by NICOLE Lim) Cancer of neck Cholelithiasis Facial swelling GERD (gastroesophageal reflux disease) Goals of care, counseling/discussion Head and neck cancer (Chronic) 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 Hypothyroidism Surgical History PEG (percutaneous endoscopic gastrostomy) status Removed Family History Other Cancer Heart disease Social History Preferred Language: Lebanese Communication Ability: Effective Rn Procedure Required: No Beliefs That Will Affect Care: None marital status: Unknown Current Living Situation: Alone Current Living Situation Comment: lives alone in high rise apartment Other Information That Helps Us Care for You: No Feels Safe at Home: Yes Safety Concerns: Feels Safe At This Time Smoking Status: Former smoker Do You Dip or Chew Tobacco: No ; Second Hand Exposure: No ; Tobacco Cessation Education Requested by Patient: No Hx Alcohol Use: No Hx Substance Use: Yes substance use type: opiates and prescription drug Substance Use Type Other:: oxycodone Last Used Substance: Unknown Physical Exam Constitutional: well developed and cooperative ENMT: Nose: + facial tenderness Mouth: + muffled voice large right neck mass invading right ear Neck: + anterior neck swelling (right side), + submandibular swelling and + neck tender Thyroid: + thyroid mass, + thyroid tender and + thyroid warm Respiratory: normal respiratory effort, lungs clear to auscultation Cardiovascular: RRR, no murmur, no edema Gastrointestinal (Abdomen): normal bowel sounds, soft, nontender, no hepatosplenomegaly Skin: no rashes, warm and dry Psychiatric: A+Ox3, euthymic affect Results & Data Vital Signs (Past 12 Hours) Vital Signs Temp Pulse Pulse Resp BP Pulse Ox 06/06/19 07:42 36.8 C 70 18 141/80 H 94 06/06/19 07:30 89 06/06/19 03:39 36.3 C L 63 16 123/83 98 06/06/19 01:04 66 06/05/19 22:38 36.5 C 59 L 16 131/78 93 PG Care Time/CCT Total # of Minutes Spent Total Time Spent with Patient: Total time spent is greater than 50% in coordination of care (as documented) at patient's floor/unit and/or counseling patient: 70 Prolonged Care Time Prolonged Care Time: Yes Total Prolonged Care Time: 30 Coding Level of Care Code 86869 Inpt Consult Level 3 Diagnoses Goals of care, counseling/discussion Z71.89 Head and neck cancer C76.0 Facial swelling R22.0 Additional Codes Prolonged Care Time - Prolonged Care Time: Yes ([id number]) Time Spent (min) 100 Time Spent Midlevel Total time spent 70 minutes with > 50% of that time spent assessing the patient, discussing goals of care, code status, and symptom management. Attending Spent 30 minutes in addition to this 70 minutes spent by NICOLE Lim for total of 100 minutes with greater than 50% of the time at bedside discussing patient's concerns as well as addressing goals of care. Critical Care Time Prolonged Care Time Prolonged Care Time: Yes Total Prolonged Care Time: 30 100
[2019-06-06] MEDS: ACETAMINOPHEN 325 MG TAB PO PRN (09:10)
--- NOTE | 2019-06-06 15:12 | Radiation OncologyConsultation ---
Date of Consultation June 06, 2019 Assessment & Plan (1) Head and neck cancer: Assessment: Ms. 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 The patient has been admitted to the hospital due to a very large locally advanced necrotic mass involving the right face, right neck and right postauricular region. The patient has been previously treated at multiple institutions including [facility] and [facility]. The patient did receive radiation therapy in 2016 at [facility]. Additionally, the patient has been on multiple lines of systemic therapy and immunotherapy including pembrolizumab, cetuximab and Xeloda, most recently. The patient states that her medical oncology care is currently being directed at [facility]. Communication has been completed with [facility] who has recommended no further treatment at this point and has recommended consideration of hospice and palliative care. I been asked to evaluate the patient for consideration of further radiation therapy. Recommendation/Plan: Although we are in the process of obtaining previous radiation therapy dosimetry records from [facility], given the extensive nature of the tumor and previous history of high-dose radiation therapy, I do not believe that there would be a benefit to radiation therapy. Risks to re-irradiation in this region include carotid artery blowout, skin necrosis, soft tissue necrosis, mandible osteoradionecrosis and wound complications. The area is very large which would significantly reduce the probability of effective tumor control and palliation. I agree with the recommendations from [facility] that the patient should be considered for more palliative care options including hospice. I will review the radiation records when they become available. If there is any change in her recommendations, I will speak with the primary hospitalist. At this point, there is no role for radiation therapy. Please call us with any further questions or concerns. Present on Admission?: Yes History of Present Illness Attending Physician: Satnam Rojas MD History of Present Illness 2014. Ms. Martinez is a 58-year-old female initially diagnosed with [id number] carcinoma with squamous features of unknown primary. She had an extensive work- up and diagnostic history due to the fact that she did go to multiple institutions including [facility], [facility], [place]. 10/24/2015 to 12/12/2015. Patient underwent definitive chemotherapy and radiation therapy. Patient received weekly cisplatin chemotherapy. This was accordingly done at [facility]. We are in the process of obtaining radiation records. 03/03/2017. CT of neck shows increased size of right cervical lymph nodes. 03/23/2017. PET/CT scan does show progression of disease. 04/07/2017 to 04/28/2017. 2 cycles of TPF chemotherapy. 06/30/2017. Opdivo. Start in and dates are unknown at this point. Appears that the patient received only 1 cycle. 2019. Patient has been treated with cetuximab. The start and end dates of this treatment is unknown. 10/19/2018. Radiation oncology follow-up at [facility] with Dr. Reaves. The recommendation is for continuation of cetuximab with no radiation therapy. 02/07/2019. Radiation oncology follow-up at [facility] with Dr. Reaves. Recommendation is for no radiation therapy given concerns regarding potential side effects and issues. 2019. According to the patient, she states that she has been receiving Xeloda which has been prescribed at [facility]. 05/10/2019 to 05/13/2019. Patient admitted to hospital for cellulitis. 06/03/2019. Patient admitted to hospital again for facial swelling and necrotic mass involving the right neck. Patient stated her most recent oral Xeloda dose was completed on 05/26/2019. Allergies Allergy/AdvReac Type Severity Reaction Status Date / Time piperacillin [From Zosyn] Allergy Mild lip Verified 06/03/19 13:01 swelling tazobactam [From Zosyn] Allergy Mild lip Verified 06/03/19 13:01 swelling cefepime Allergy Rash Verified 06/03/19 13:01 omeprazole [From Prilosec] Allergy Rash Verified 06/03/19 13:01 prednisone Allergy Unknown Verified 06/03/19 13:01 Home Medications Home Medications Medication Instructions Recorded Confirmed Type lorazepam [Ativan] 1 mg PO TID 08/15/18 06/03/19 History oxycodone 15 - 45 mg PO Q3H PRN 08/15/18 06/03/19 History pantoprazole 40 mg PO QAM 08/15/18 06/03/19 History albuterol sulfate 3 mg INHALATION Q4H PRN 08/16/18 06/03/19 History albuterol sulfate [Ventolin HFA] 2 puff INHALATION Q4H PRN 08/16/18 06/03/19 History magnesium oxide 400 mg PO BID #60 tab 08/18/18 06/03/19 Rx potassium chloride 20 meq PO BID #60 tab 08/18/18 06/03/19 Rx capecitabine 500 mg PO UD 05/10/19 06/03/19 History dexamethasone 4 mg PO QAM 05/10/19 06/03/19 History lactulose 10 g PO TID 05/10/19 06/03/19 History levothyroxine 50 mcg PO QAM 05/10/19 06/03/19 History ondansetron HCl 8 mg PO DAILY PRN 05/10/19 06/03/19 History diphenhydramine HCl [Benadryl] 25 mg PO Q8H PRN #30 cap 05/13/19 06/03/19 Rx amoxicillin-pot clavulanate 1 tab PO Q12H 7 Days #14 tab 05/30/19 06/03/19 Rx [Augmentin] ibuprofen [Advil] 200 mg PO Q6H PRN 06/01/19 06/03/19 History Patient History Medical History (Updated 06/06/19 @ 09:31 by NICOLE Lim) Cancer of neck Cholelithiasis Facial swelling GERD (gastroesophageal reflux disease) Goals of care, counseling/discussion Head and neck cancer (Chronic) 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 Hypothyroidism Surgical History PEG (percutaneous endoscopic gastrostomy) status Removed Family History Other Cancer Heart disease Social History Preferred Language: Swedish Communication Ability: Effective 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 Beliefs That Will Affect Care: None marital status: Unknown Current Living Situation: Alone Current Living Situation Comment: lives alone in high rise apartment Other Information That Helps Us Care for You: No Feels Safe at Home: Yes Safety Concerns: Feels Safe At This Time Smoking Status: Former smoker Do You Dip or Chew Tobacco: No ; Second Hand Exposure: No ; Tobacco Cessation Education Requested by Patient: No Hx Alcohol Use: No Hx Substance Use: Yes substance use type: opiates and prescription drug Substance Use Type Other:: oxycodone Last Used Substance: Unknown Review of Systems Ear, Nose, Mouth, Throat: + hearing loss, + nasal congestion, + facial pain, + pain with swallowing and + neck lump Physical Exam Constitutional: + ill appearing Eyes: Weakness noticed in right eyelids. ENMT: Right facial droop noted. Large right necrotic pre-/postauricular mass with seepage and some bleeding. Very large mass that is hard and fixed. Respiratory: normal respiratory effort, lungs clear to auscultation Cardiovascular: RRR, no murmur, no edema Psychiatric: A+Ox3, euthymic affect
--- NOTE | 2019-06-06 22:01 | Hospitalist Progress Note ---
Date of Service June 06, 2019 Assessment & Plan (1) Head and neck cancer: Squamous cell carcinoma of head and neck diagnosed about 5 years ago. Has been seen at several cancer centers, most recently [facility] in [place]. Has received radiation therapy as well as various chemotherapies. Unfortunately, she has progressive disease with local extension as well as metastases to lungs. Has serosanguineous drainage from the mass. CT imaging demonstrates necrosis. Worsening swelling of face and neck associated with discomfort. May or may not have associated soft tissue infection. Continue IV antibiotics. Continue dexamethasone for worsening swelling of mass. Patient would like to continue receiving aggressive management of her malignancy, but has been informed by [facility] that they do not have any other therapeutic options likely to be beneficial. Patient requests consideration of additional treatment. Radiation Oncology, Medical Oncology, Palliative Care consulted. (2) GERD (gastroesophageal reflux disease): Continue PPI. (3) Superficial venous thrombosis of right upper extremity: Patient experienced some pain and swelling of her RUE after IV infusion. Venous duplex demonstrated superficial thrombosis right basilic vein. Difficult to determine when superficial thrombosis occurred. No indication for anticoagulation. Warm compresses / elevation. (4) Palliative care encounter: Current status, concerns, resuscitation status discussed by my colleague Dr. Antonino lambert of admission. Consideration of hospice care was suggested by providers at [facility]. Palliative Care consulted. Patient realizes that she has advanced cancer that is progressive and metastatic, but she is hoping for a miracle and wishes to have resuscitation attempted in the event of a cardiopulmonary arrest. (5) DVT prophylaxis: No anticoagulants because of bleeding from neck mass. SCDs. Ambulate. (6) Discharge planning issues: Discharge disposition to be determined. Milton Early given update by phone this evening. Admission and Anticipated Discharge Date Admission Date: June 03, 2019 Subjective Recheck for head neck cancer and other problems. Patient seen in their room around 1630. Ongoing right neck/face discomfort. No fever. Minimal improvement of facial swelling. Review of Systems: Constitutional- as noted above. Cardiac- no chest pain. Pulmonary- no cough or SOB. GI- no nausea, vomiting, diarrhea, melena, hematochezia. - no urinary symptoms. Otherwise, as noted above. Physical Exam Constitutional: no acute distress ENMT: external ear and nose normal, oropharynx normal (large right neck mass invading right ear) Neck: + abnormal visual inspection (large right neck mass extending to face with serosanguinous drainage) Respiratory: no respiratory distress Auscultation: lungs clear to auscultation bilaterally Cardiovascular: Rate/Rhythm: regular rate and regular rhythm Vessels: no JVD Extremities: no calf tenderness and no edema Gastrointestinal (Abdomen): normal bowel sounds, soft, nontender, no hepatosplenomegaly Skin: no rashes, warm and dry Psychiatric: Orientation: alert and oriented x 3 Affect: + tearful affect Results & Data ([facility]) Vital Signs (Past 12 Hours) Vital Signs Temp Pulse Pulse Resp BP Pulse Ox 06/06/19 19:56 36.4 C L 65 20 144/92 H 96 06/06/19 16:45 70 06/06/19 14:35 36.7 C 67 18 142/85 H 96 06/06/19 11:15 36.7 C 92 H 20 134/101 H 97 Laboratory Results 06/06/19 05:40
[2019-06-06] MEDS: LORazepam 1 MG TAB PO PRN (22:04)
[2019-06-07] MEDS: AZTREONAM 2,000 MG in DEXTROSE 5% 100 ML IV SCH ×3 (00:44→16:22)
[2019-06-07] MEDS: DEXAMETHASONE SOD PHOSPHATE 4 MG in SYRINGE 0 ML IV SCH ×3 (04:04→16:10)
[2019-06-07] MEDS ORDERED: VANCOMYCIN TROUGH ONE (05:30)
[2019-06-07] MEDS: LEVOTHYROXINE SODIUM 50 MCG TABLET PO SCH (06:08)
[2019-06-07] MEDS: VANCOMYCIN HCL 750 MG in SODIUM CHLORIDE 0.9% 250 ML IV SCH ×2 (06:08→17:33)
[2019-06-07] MEDS: OXYCODONE HCL IR 5 MG TAB (IMMEDIATE RELEASE) PO PRN (06:19)
--- NOTE | 2019-06-07 07:15 | Pharmacy Report ---
Pharmacy Abx Dose Short Note - Date of Service June 07, 2019 - Assessment & Plan Assessment 58 year old F receiving vancomycin and aztreonam for treatment of facial swelling possibly secondary to skin/soft tissue infection. Patient has squamous cell carcinoma of head and neck. Will recheck SCr tomorrow AM. Day # 5 of antimicrobial therapy. Plan Vancomycin * Trough level of 14.4 mcg/mL is therapeutic * Continue dose of 750 mg IV every 12 hours * Goal trough level for skin/soft tissue infection : 10 to 15 mcg/mL * Will order follow-up trough if needed for any acute change in renal function Aztreonam * Continue 2 g IV q8h Pharmacy will continue to follow and will adjust dose/frequency as necessary. Thank you.
[2019-06-07] MEDS: LORazepam 1 MG TAB PO PRN (08:40)
[2019-06-07] MEDS: ARTIFICIAL TEARS OP OINT 3.5 GM TUBE OPR SCH ×3 (08:41→17:34)
[2019-06-07] MEDS: LACTULOSE SYRUP 20 GM/30 ML UDC PO SCH ×2 (08:41→13:47)
[2019-06-07] MEDS: PANTOprazole 40 MG TAB PO SCH (08:42)
[2019-06-07] MEDS: MAGNESIUM OXIDE 400 MG TAB PO SCH ×2 (08:42→14:48)
--- NOTE | 2019-06-07 11:18 | Palliative Care Progress Note ---
Date of Service June 07, 2019 Assessment & Plan (1) Goals of care, counseling/discussion: -I visited the patient today. She remembers our conversation from yesterday. -She continued to state that she "just wants the swelling to go down" -The patient asked me to take a photo of her neck on her phone, which I did. She asked what the dark ad black areas were, and I explained that it was tumor progression pushing through her neck causing the oozing. -She asked why it looks less swollen than one month earlier, and I explained that what is seen in the picture is infact tumor. -She said that her sons have seen her about one month ago, I asked if they have seen a recent photo and she said "they said they do not want to see it" -The patient stated that she is terrified of dying, but has strong eri. -The patient did eat an honduran muffin today and was surprised she could still swallow it. She said her tongue is starting to feel different today. -She has increasing right sided facial deviation related to tumor progression. -I continue to worry about airway restriction and inability to ventilate her which she verbalizes understanding and just says She stated that itching her tumor relieves discomfort, apparently per nursing it was oozing and bleeding this morning. Currently, no dysphagia or difficulty eating or breathing. -Currently, she said she "always has pain, but pain to her means she is alive". She currently has Oxycodone 15 mg PO Q3 PRN and has utilized FOUR doses over the past 24 hours. Could consider a long-acting medication, but at this time she is comfortable with her current medication regimen. -She is receiving Decadron 4mg IV Q6 but at this time I am not sure it is providing much effect. -Anxiety and emotional pain appear to be large components of her inability to focus on her goals right now. She was very tearful during my visit and just stated "I am not ready to " repeatedly, just as she did yesterday. We talked about what that meant to her and if she felt something was left undone or what her main concerns were. She says she feels like she will alone. I encouraged her to speak with her son about her feelings. Her mother does live in the apartment complex that she does. -Today she talked about getting her affairs in order. -She has Ativan 1 mg IV TID PRN ordered and has utilized ONE dose over the past 24 hours. I hesitate to order this scheduled for now as her respiratory com promise and airway management poses a concern. Until we have code status confirmed, I would continue to offer this PRN. -We discussed her wishes and, at this time, she understands the risks of attempt ing to be resuscitated and would like to remain a full code. She stated "well, if I decline, I wouldn't know the different if I had CPR or not" -Her son, Sharath, called when I was in the room. She did not want me to talk to him. She does have two sons: Sharath and Jake who both work in [employer] [employer]. The hospitalist did speak with them yesterday evening. -Ultimately, the patient is receptive to returning home with Home Health. Her mother uses [facility] so she hopes to utilize the same agency. -I think her life expectancy is weeks based on her current presentation. -Palliative care will continue our conversations with her and develop rapport, and assist with goals and symptoms. -PPS: 20% (2) Head and neck cancer: (3) Facial swelling: Subjective Patient sitting upright in her bed talking on the phone when I entered. Pt denies pain, but states her right ear is itching as it oozes. Rad/Onc visited patient last evening. Please see A?P for further details. Review of Systems Review of Systems: All systems reviewed & are unremarkable except as noted in HPI & below Pt reports itching on the right side of her face/ear Physical Exam Constitutional: well developed and cooperative ENMT: Nose: + facial tenderness Mouth: + muffled voice Neck: + anterior neck swelling (right side), + submandibular swelling and + neck tender Thyroid: + thyroid mass, + thyroid tender and + thyroid warm Respiratory: normal respiratory effort, lungs clear to auscultation Cardiovascular: RRR, no murmur, no edema Gastrointestinal (Abdomen): normal bowel sounds, soft, nontender, no hepatosplenomegaly Skin: no rashes, warm and dry Psychiatric: A+Ox3, euthymic affect tearful Results & Data Vital Signs (Past 12 Hours) Vital Signs Temp Pulse Pulse Resp BP Pulse Ox 06/07/19 10:54 81 06/07/19 07:08 36.8 C 79 16 133/73 95 06/07/19 04:17 36.4 C L 63 20 123/77 96 06/07/19 00:01 68 06/06/19 23:19 36.8 C 71 20 112/74 97 Supervising Physician Co-Signing Physician Notes Patient seen and examined, patient sitting up on side chair in no acute distress. Her belongings are packed and she is ready for discharge. Patient reports her son in [place] is assisting with evaluation at [facility] wishes to return home as soon as possible so she can take care of financial obligations. PE: Awake alert and oriented, no acute distress HEENT: Face with obvious deformity and swelling due to tumor involvement of right lateral neck Respirations: Unlabored CV: Regular rate Abdomen: Not distended Neuro: Alert and oriented x4 Agree with above note, assessment and plan as per NICOLE Lim-patient will be discharged with home health, patient aware she can transition to hospice if needed. PG Care Time/CCT Total # of Minutes Spent Total Time Spent with Patient: Total time spent is greater than 50% in coordination of care (as documented) at patient's floor/unit and/or counseling patient: 35 Coding Level of Care Code 01583 Subseq Hosp Care Lvl 3 Diagnoses Goals of care, counseling/discussion Z71.89 Head and neck cancer C76.0 Facial swelling R22.0 Time Spent (min) 35 Time Spent Midlevel total time spent 35 minutes with > 50% of that time spent assessing the patient, discussing goals of care and code status
--- NOTE | 2019-06-07 16:05 | Hospitalist Progress Note ---
Date of Service June 07, 2019 Assessment & Plan (1) Head and neck cancer: Squamous cell carcinoma of head and neck diagnosed about 5 years ago. Has been seen at several cancer centers, most recently [facility] in [place]. Has received radiation therapy as well as various chemotherapies. Unfortunately, she has progressive disease with local extension as well as metastases to lungs (per patient, PET scan at [facility] also showed "back" ? spine lesion). Has serosanguineous drainage from the mass. CT imaging demonstrates necrosis. Worsening swelling of face and neck associated with discomfort. Tumor progression likely; associated soft tissue infection considered. Case discussed with ENT who did not see any role for surgical intervention. Received IV antibiotic therapy with vancomycin & aztreonam and IV dexamethasone for worsening swelling of mass. Wound culture from drainage grew only Corynebacterium sp (= contamination from skin doreen). Minimal improvement of swelling / discomfort right neck & face. No apparent benefit from ongoing IV antibiotics. Discharge on amoxicillin/clavulanic acid and dexamethasone taper for possible infection / inflammation. Primary tumor has grown with local extension and metastasized to lung and possibly spine. Patient would like to continue receiving aggressive management of her malignancy, but has been informed by [facility] that they do not have any other therapeutic options likely to be beneficial. Patient requests consideration of additional treatment. Radiation Oncology and Palliative Care consulted. Radiation Oncology felt that additional radiation therapy to head/neck at this time would likely have more risk than benefits. As noted above, patient would like to pursue possible options for additional therapies. Son lives in [facility]. Consultation at [facility] recommended and son has contacted them. Given copies of CT images from this institution to share with consultants. Advised to have records from [facility] and [facility] forwarded to [facility]. (2) GERD (gastroesophageal reflux disease): Continue PPI. (3) Superficial venous thrombosis of right upper extremity: Patient experienced some pain and swelling of her RUE after IV infusion. Venous duplex demonstrated superficial thrombosis right basilic vein. Difficult to determine when superficial thrombosis occurred. No indication for anticoagulation. Warm compresses / elevation. Symptoms resolved by discharge. (4) Palliative care encounter: Current status, concerns, resuscitation status discussed by my colleague Dr. Muñiz day of admission. Consideration of hospice care was suggested by providers at [facility]. Palliative Care consulted. Patient realizes that she has advanced cancer that is progressive and metastatic, but she is hoping for a miracle and wishes to have resuscitation attempted in the event of a cardiopulmonary arrest. (5) DVT prophylaxis: No anticoagulants because of bleeding from neck mass. SCDs. Ambulate. (6) Discharge planning issues: Discharge to home. Oncology consultation with [facility] in [place] being arranged. Patient advised to establish with PCP in her community to assist with coordination of care. Son Sharath given update by phone. Admission and Anticipated Discharge Date Admission Date: June 03, 2019 Subjective Recheck for head neck cancer and other problems. Patient seen in their room around 1530. Feels better. No fever. Would like to go home. Right facial swelling about the same. Review of Systems: Constitutional- as noted above. Cardiac- no chest pain. Pulmonary- no cough or SOB. GI- no nausea, vomiting, diarrhea, melena, hematochezia. - no urinary symptoms. Otherwise, as noted above. Physical Exam Constitutional: no acute distress ENMT: external ear and nose normal, oropharynx normal (large right neck mass invading right ear) Neck: + abnormal visual inspection (large right neck mass extending to face with serosanguinous drainage) Respiratory: no respiratory distress Auscultation: lungs clear to auscultation bilaterally Cardiovascular: Rate/Rhythm: regular rate and regular rhythm Vessels: no JVD Extremities: no calf tenderness and no edema Gastrointestinal (Abdomen): normal bowel sounds, soft, nontender, no hepatosplenomegaly Skin: no rashes, warm and dry Psychiatric: Orientation: alert and oriented x 3 Results & Data ([facility]) Vital Signs (Past 12 Hours) Vital Signs Temp Pulse Pulse Resp BP Pulse Ox 06/07/19 15:23 36.6 C 66 18 122/74 95 06/07/19 11:21 36.7 C 80 16 142/96 H 96 06/07/19 10:54 81 06/07/19 07:08 36.8 C 79 16 133/73 95 06/07/19 04:17 36.4 C L 63 20 123/77 96
[2019-06-07] MEDS ORDERED: dexAMETHasone 4 MG TAB PO ONE (18:00)
--- NOTE | 2019-06-08 05:45 | Discharge Summary ---
Date of Service Date of Admission: 06/03/19 Date of Discharge: 06/07/19 Admission HPI Per Admitting Provider 58-year-old female who presents the ED for evaluation of facial swelling. Patient with history of extensive head and neck cancer, currently being treated at [facility] in [place]. Patient's cancer history dates back to 2014 and she has received care at several different institutions. Patient most recently admitted to [facility] 05/10 through 05/13 for treatment of possible cellulitis of the external neck mass. Patient was seen in the ED on 05/29 and 05/31 for evaluation of right facial swelling. Patient was advised admission however she signed out AMA. During the 05/29 visit, patient was discharged on Augmentin. Patient reports she has been on oral Xeloda therapy until last week. She has had persistent/progressing right facial swelling and not paralysis. Patient denies shortness of breath or difficulty swallowing. No fevers or chills. Denies chest pain. No lightheadedness, dizziness, diaphoresis, syncopal event. Denies abdominal pain, nausea, vomiting, diarrhea. No urinary symptoms. In the ED, patient is hemodynamically stable. Labs show a mild elevation in creatinine of 1.3. She was given IV ceftriaxone. 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 Discharge Data Allergies Allergy/AdvReac Type Severity Reaction Status Date / Time piperacillin [From Zosyn] Allergy Mild lip Verified 06/03/19 13:01 swelling tazobactam [From Zosyn] Allergy Mild lip Verified 06/03/19 13:01 swelling cefepime Allergy Rash Verified 06/03/19 13:01 omeprazole [From Prilosec] Allergy Rash Verified 06/03/19 13:01 prednisone Allergy Unknown Verified 06/03/19 13:01 Consultations 06/03/19 13:15 ED Decision to Admit Stat 06/03/19 13:38 ED Decision to Admit Stat 06/03/19 17:02 Consult Palliative Care Routine 06/06/19 08:38 Consult Radiation Oncology Routine 06/07/19 16:05 Burn CD for patient Routine Ordered Studies 06/05/19 03:38 US venous doppler UE RT Urgent Hospital Course (1) Head and neck cancer: Squamous cell carcinoma of head and neck diagnosed about 5 years ago. Has been seen at several cancer centers, most recently [facility] in [place]. Has received radiation therapy as well as various chemotherapies. Unfortunately, she has progressive disease with local extension as well as metastases to lungs (per patient, PET scan at [facility] also showed "back" ? spine lesion). Has serosanguineous drainage from the mass. CT imaging demonstrates necrosis. Worsening swelling of face and neck associated with discomfort. Tumor progression likely; associated soft tissue infection considered. Case discussed with ENT who did not see any role for surgical intervention. Received IV antibiotic therapy with vancomycin & aztreonam and IV dexamethasone for worsening swelling of mass. Wound culture from drainage grew only Corynebacterium sp (= contamination from skin doreen). Minimal improvement of swelling / discomfort right neck & face. No apparent benefit from ongoing IV antibiotics. Discharged on amoxicillin/clavulanic acid and dexamethasone taper for possible infection / inflammation. Primary tumor has grown with local extension and metastasized to lung and possibly spine. Patient would like to continue receiving aggressive management of her malignancy, but has been informed by [facility] that they do not have any other therapeutic options likely to be beneficial. Patient requests consideration of additional treatment. Radiation Oncology and Palliative Care consulted. Radiation Oncology felt that additional radiation therapy to head/neck at this time would likely have more risk than benefits. As noted above, patient would like to pursue possible options for additional therapies. Son lives in [facility]. Consultation at [facility] recommended and son has contacted them. Given copies of CT images from this institution to share with consultants. Advised to have records from [facility] and [facility] forwarded to [facility]. (2) GERD (gastroesophageal reflux disease): Continue PPI. (3) Superficial venous thrombosis of right upper extremity: Patient experienced some pain and swelling of her RUE after IV infusion. Venous duplex demonstrated superficial thrombosis right basilic vein. Difficult to determine when superficial thrombosis occurred. No indication for anticoagulation. Warm compresses / elevation. Symptoms resolved by discharge. (4) Palliative care encounter: Current status, concerns, resuscitation status discussed by my colleague Dr. Muñiz day of admission. Consideration of hospice care was suggested by providers at [facility]. Palliative Care consulted. Patient realizes that she has advanced cancer that is progressive and metastatic, but she is hoping for a miracle and wishes to have resuscitation attempted in the event of a cardiopulmonary arrest. (5) DVT prophylaxis: No anticoagulants because of bleeding from neck mass. SCDs. Ambulate. (6) Discharge planning issues: Discharge to home. Oncology consultation with [facility] in [place] being arranged. Patient advised to establish with PCP in her community to assist with coordination of care. Son Sharath given update by phone. Total Time Total Time Spent Total Time Spent (In Minutes): 40 Discharge Plan Discharge Items Patient Disposition: Home - Self-Care Reason For Visit: head and neck cancer Discharge Diagnosis: head and neck cancer Condition on Discharge: Fair Activity: Resume your previous activity Non-emergency contact: Oncologist Call non-emergency contact if: you have any medication questions, your symptoms worsen and your temperature is above 101 Follow-up/Referrals: Edward Sanchez, ACNP-BC [Primary Care Provider] - Diet: Regular Addtl Attending Provider Instructions: MEDICATION CHANGES: amoxicillin / clavulanic acid (Augmentin) twice a day with food dexamethasone (Decadron) 2 mg pills 06/08/19 - 06/10/19 4 mg (2 pills) twice a day 06/11/19 - 06/13/19 3 mg (1 + 1/2 pills) twice a day 06/14/19 - 06/16/19 2 mg (1 pill) twice a day 06/17/19 1 mg (1/2 pill) twice a day continue taking 1 mg twice a day until you see an Oncologist SUMMARY OF TEST RESULTS: CT scans show that tumor has grown and spread to your lungs. RECOMMENDATIONS FOR FOLLOW-UP: Please make an appointment to see a Medical Oncologist at [facility] to review your case. They will need records from [facility], [facility], and other places where you received care for your cancer. Copies of your CT scans from [facility] will be provided to you. Please take them with you when you go to [facility]. Please find a family doctor in the [place] area. They can help coordinate your care. OTHER INSTRUCTIONS: Seek medical attention if you have: * temperature above 101 * chest pain or trouble breathing * abdominal pain, nausea, vomiting * diarrhea, dark stools or bloody stools * any unanswered questions or concerns Call 911 if symptoms are severe. Please take good care of yourself. Call if you have any questions or problems. You can reach a [facility] hospitalist on duty at [facility] 24 hours a day by calling [phone]. Pending Studies at Discharge: No Stand-Alone Forms: My [facility], Smoking Cessation Medications and DC Order Prescriptions: New dexamethasone 2 mg tablet See Rx Instructions .ROUTE .COMPLEX Qty: 100 RF: 0 amoxicillin-pot clavulanate [Augmentin] 875-125 mg tablet 1 tab PO BID Qty: 14 RF: 0 Artificial Tears (cmc) 1 % drops 1 drops OP QID Qty: 15 RF: 5 acetaminophen [Tylenol Extra Strength] 500 mg tablet 1,000 mg PO Q8H PRN (Reason: pain) Qty: 60 RF: 0 Continued oxycodone 15 mg Tablet 15 - 45 mg PO Q3H PRN (Reason: Pain) RF: 0 lorazepam [Ativan] 1 mg Tablet 1 mg PO TID RF: 0 pantoprazole 40 mg tablet,delayed release (DR/EC) 40 mg PO QAM RF: 0 albuterol sulfate 2.5 mg /3 mL (0.083 %) solution for nebulization 3 mg inhalation Q4H PRN (Reason: Wheezing) RF: 0 albuterol sulfate [Ventolin HFA] 90 mcg/actuation HFA aerosol inhaler 2 puff inhalation Q4H PRN (Reason: Wheezing) RF: 0 potassium chloride 20 mEq tablet extended release 20 meq PO BID Qty: 60 RF: 1 magnesium oxide 400 mg (241.3 mg magnesium) tablet 400 mg PO BID Qty: 60 RF: 1 ondansetron HCl 8 mg tablet 8 mg PO DAILY PRN (Reason: Nausea) RF: 0 levothyroxine 50 mcg tablet 50 mcg PO QAM RF: 0 lactulose 10 gram/15 mL solution 10 g PO TID RF: 0 diphenhydramine HCl [Benadryl] 25 mg Capsule 25 mg PO Q8H PRN (Reason: lip swelling) Qty: 30 RF: 0 Discontinued dexamethasone 2 mg tablet 4 mg PO QAM RF: 0 capecitabine 500 mg tablet 500 mg PO UD RF: 0 amoxicillin-pot clavulanate [Augmentin] 875-125 mg tablet 1 tab PO Q12H 7 Days Qty: 14 RF: 0 ibuprofen [Advil] 200 mg Tablet 200 mg PO Q6H PRN (Reason: Outbreak) RF: 0 Discharge Orders: Discharge Order (Routine); Ordered 06/07/19 Ordered By: Satnam Rojas Admission Data Admit Date/Time: 06/03/19 14:17 Attending Provider: Satnam Rojas Admit Provider: Carina Muñiz Primary Care Provider: Edward Sanchez Other Providers: Satnam Rojas ; Carina Muñiz ; Lauren Carter ; Samantha Carter Other Interventions: Discharge Summary Assessment (RN) Last Done: 06/07/19 19:28 DC Date/Time DO NOT enter until pt leaves facility: 06/07/19 19:55
--- NOTE | 2019-06-18 16:18 | Communication Note ---
Date of Service: June 18, 2019 Patient called nursing station today. She has worsening swelling of face. No fever. She has progressive / metastatic head & neck Ca and has been seen at various institutions, including [facility], [facility], and [facility]. Most recent care was at [facility] and they indicated that there were no additional therapies that they could offer. Recently admitted here with progressive local disease / swelling of face and neck. Treated for possible soft tissue infection, but there was no definite evidence of that. Seen by Palliative Care and Radiation Oncology. Radiation Oncology felt that further radiation therapy would have more risk than benefits. Hospice care was discussed, but (1) she wishes to continue to receive aggressive treatment and (2) she does not have a primary care physician for the hospice referral. She is trying to get another opinion at [facility], but has not been seen there yet. Apparently they are trying to get records from [facility]. She is concerned about the progression of her tumor and is desperate to seek additional therapy if anything can be offered. She was advised to seek urgent / emergent medical attention in [place] where she lives and to continue trying to get appointment at [facility]. Her son is assisting her with those arrangements. She is also considering follow-up with [facility] for reassessment there.
== END 2019-06-07 19:55 | disposition home or self-care (01) | DRG 147 ==
LOC: ED 12:16 → SUATTDRO 14:17 → 2W 14:17

== ENCOUNTER 2019-09-02 19:55 | Inpatient (IN) ==
[2019-09-02 20:39] LABS: Basophils # (auto) 0.02 K/uL (0-0.2); Basophils % (auto) 0.2 %; Hematocrit (blood only) 34.3 % (37-47); Hemoglobin 11.4 g/dL (12.0-16.0); Lymphocytes # (auto) 0.73 K/uL (1.2-3.4); Mean Corpuscular Hgb Conc 33.2 g/dL (32-36); Mean Corpuscular Volume 87.3 fL (80-100); Monocytes # (auto) 1.27 K/uL (0.11-0.59); Monocytes % (auto) 12.1 %; Neutrophils # (auto) 8.35 K/uL (1.4-6.5); Neutrophils % (auto) 79.7 %; Platelet Count 275 K/uL (130-400); Red Blood Count 3.93 M/uL (4.2-5.4); White Blood Count 10.47 K/uL (4.8-10.8)
[2019-09-02 20:51] LABS: Alanine Aminotransferase 30 U/L (12-78); Albumin Level 2.3 gm/dl (3.4-5.0); Aspartate Aminotransferase 21 U/L (15-37); BUN Creatinine Ratio 29.9 (10-20); Blood Urea Nitrogen 17 mg/dl (7-18); Carbon Dioxide 26 mmol/L (21-32); Chloride 91 mmol/L (98-107); Est GFR (African American) 116.8; Est GFR (Non-African American) 100.8; Glucose 92 mg/dl (70-99); Potassium 3.3 mmol/L (3.5-5.1); Sodium 129 mmol/L (136-145)
--- NOTE | 2019-09-02 20:54 | XRay Report ---
SINGLE VIEW CHEST CLINICAL HISTORY: Atypical chest pain. FINDINGS: An AP, portable, semierect chest radiograph is compared to study dated 05/30/2019 and correl ated with chest CT dated 06/01/2019. The examination is degraded by portable technique and patient rot ation. The cardiomediastinal silhouette is unremarkable. A 3 cm nodule with cavitation is noted in the right upper lobe and a 5.5 cm nodule with cavitation is noted at the right lung base. Additional smaller nodular densities are present throughout both lungs. No large pleural effusion or pneumothora x is seen. The skeletal structures are osteopenic. The bony thorax is grossly intact. Calcific tendin opathy is noted in the left shoulder. IMPRESSION: Nodular airspace opacities are seen bilaterally. These have increased in size from 2019, and the largest to demonstrate foci of central necrosis/cavitation. Both neoplastic and infecti ous processes could have this appearance and correlation with the patient's clinical history will be essential. If clinically warranted chest CT could be considered for further assessment. ACT 112: Negative or not required by law. Electronically signed by: Devan Meade M.D. 09/02/2019 8:53 PM
[2019-09-02 20:58] LABS: Albumin Globulin Ratio 0.6 (0.9-2); Alkaline Phosphatase 81 U/L (45-117); Bilirubin,Total 1.2 mg/dl (0.2-1); Globulin 3.8 gm/dl (2.5-4.0); Total Protein 6.1 gm/dl (6.4-8.2); Troponin I 0.054 ng/ml (0-0.045)
--- NOTE | 2019-09-02 21:00 | Emergency Department Note ---
History of Present Illness General Chief complaint: Cardiac Assessment Stated complaint: CHEST PAIN,DEHYDRATION Time Seen by Provider: 09/02/19 20:37 Source: family Limitations: physical limitation and clinical acuity History of Present Illness Maximum Pain Intensity: 8 This is a 58-year-old female who presents to the ED with a chief complaint of some chest pain. The patient was brought here by the son. The patient has a history of metastatic squamous cell carcinoma to the lungs. The patient has not been eating or drinking for the past 3 days. The son was worried about dehydration and possibly aspiration. The patient provides no additional information or history as she appears to be weak. Home Medications Home Medications Medication Instructions Recorded Confirmed Type lorazepam [Ativan] 1 mg PO TID 08/15/18 06/03/19 History oxycodone 15 - 45 mg PO Q3H PRN 08/15/18 06/03/19 History pantoprazole 40 mg PO QAM 08/15/18 06/03/19 History albuterol sulfate 3 mg INHALATION Q4H PRN 08/16/18 06/03/19 History albuterol sulfate [Ventolin HFA] 2 puff INHALATION Q4H PRN 08/16/18 06/03/19 History magnesium oxide 400 mg PO BID #60 tab 08/18/18 06/03/19 Rx potassium chloride 20 meq PO BID #60 tab 08/18/18 06/03/19 Rx lactulose 10 g PO TID 05/10/19 06/03/19 History levothyroxine 50 mcg PO QAM 05/10/19 06/03/19 History ondansetron HCl 8 mg PO DAILY PRN 05/10/19 06/03/19 History diphenhydramine HCl [Benadryl] 25 mg PO Q8H PRN #30 cap 05/13/19 06/03/19 Rx acetaminophen [Tylenol Extra 1,000 mg PO Q8H PRN #60 tab 06/07/19 Rx Strength] amoxicillin-pot clavulanate 1 tab PO BID #14 tab 06/07/19 Rx [Augmentin] carboxymethylcellulose sodium 1 drops OP QID #15 ml 06/07/19 Rx [Artificial Tears (cmc)] dexamethasone See Rx Instructions .ROUTE 06/07/19 Rx .COMPLEX #100 tab Allergies Allergy/AdvReac Type Severity Reaction Status Date / Time piperacillin [From Zosyn] Allergy Mild lip Verified 06/03/19 13:01 swelling tazobactam [From Zosyn] Allergy Mild lip Verified 06/03/19 13:01 swelling cefepime Allergy Rash Verified 06/03/19 13:01 omeprazole [From Prilosec] Allergy Rash Verified 06/03/19 13:01 prednisone Allergy Unknown Verified 06/03/19 13:01 Past Med/Surg History Medical History Cancer of neck Cholelithiasis Facial swelling GERD (gastroesophageal reflux disease) Goals of care, counseling/discussion Head and neck cancer (Chronic) 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 Hypothyroidism Surgical History PEG (percutaneous endoscopic gastrostomy) status Removed Family History Other Cancer Heart disease Social History Preferred Language: Albanian Communication Ability: Effective Assignment Manager Required: No Beliefs That Will Affect Care: None marital status: Unknown Current Living Situation: Alone Current Living Situation Comment: lives alone in high rise apartment Feels Safe at Home: Yes Smoking Status: Never smoker Second Hand Exposure: No ; Hx Alcohol Use: No Hx Substance Use: Yes substance use type: opiates and prescription drug Substance Use Type Other:: oxycodone Last Used Substance: Unknown Review of Systems Unobtainable due to cognitive status Physical Exam Vital Signs Vital Signs - 24 hr 09/02/19 19:58 09/02/19 21:00 09/02/19 21:43 Temperature 36.5 C Temperature Source Oral Pulse Rate 127 H 116 H 115 H Pulse Rate from SpO2 Sensor 116 H 116 H Respiratory Rate 20 16 20 Respiratory Effort / Characteristics Non-Labored Spontaneous Respiratory Depth Normal Blood Pressure 114/90 131/110 H 110/92 Blood Pressure Mean 98 124 99 Pulse Oximetry 96 95 96 Oxygen Delivery Method Room Air Room Air Room Air Sepsis Recent Fever Within 48 Hours No Sepsis New/Unexplained Change in Mental Status No Sepsis Action Taken by Nursing No Action Required CONSTITUTIONAL/VITAL SIGNS: Reviewed / noted above. GENERAL: Non-toxic in appearance. INTEGUMENTARY: Warm, dry, and [place]. HEAD: Normocephalic. EYES: without scleral icterus or trauma. Patient has some swelling to the right eye region where there is a reported metastatic lesion. ENT/OROPHARYNX: clear and moist. The patient has a growing mass on the neck. LYMPHADENOPATHY/NECK: Is supple without lymphadenopathy or meningismus. RESPIRATORY: Lungs clear and equal. CARDIOVASCULAR: Tachycardic rate and regular rhythm. GI/ABDOMEN: Soft and nontender. No organomegaly or pulsatile mass. No rebound or guarding. Normal bowel sounds. EXTREMITIES: Warm and well perfused. BACK: No CVA tenderness. NEUROLOGICAL: Intact without focal deficits. PSYCHIATRIC: normal affect. MUSCULOSKELETAL: Normally developed with good muscle tone. TRIAGE NURSING DOCUMENTATION REVIEWED. Medical Decision Making Medical Records Attestation: I reviewed the patient's medical records. Home Medications Current Medication List: was personally reviewed by me Laboratory Data Attestation: I reviewed the patient's lab results. Result diagrams: 09/02/19 20:23 09/02/19 20:23 Lab Results 09/02/19 09/02/19 Range/Units 20:23 20:23 WBC 10.47 (4.8-10.8) K/uL RBC 3.93 L (4.2-5.4) M/uL Hgb 11.4 L (12.0-16.0) g/dL Hct 34.3 L (37-47) % MCV 87.3 (80-100) fL MCH 29.0 (25-34) pg MCHC 33.2 (32-36) g/dL Plt Count 275 (130-400) K/uL Immature Gran % (Auto) 1.0 % Neut % (Auto) 79.7 % Lymph % (Auto) 7.0 % [place] % (Auto) 12.1 % Eos % (Auto) 0.0 % Baso % (Auto) 0.2 % Immature Gran # (Auto) 0.10 H (0.00-0.02) K/uL Neut # (Auto) 8.35 H (1.4-6.5) K/uL Lymph # (Auto) 0.73 L (1.2-3.4) K/uL [place] # (Auto) 1.27 H (0.11-0.59) K/uL Eos # (Auto) 0.00 (0-0.5) K/uL Baso # (Auto) 0.02 (0-0.2) K/uL Sodium 129 L (136-145) mmol/L Potassium 3.3 L (3.5-5.1) mmol/L Chloride 91 L (98-107) mmol/L Carbon Dioxide 26 (21-32) mmol/L Anion Gap 12.0 H (3-11) BUN 17 (7-18) mg/dl Creatinine 0.57 L (0.6-1.2) mg/dl Est Cr Clr Drug Dosing Not Reportable Est GFR ( Amer) 116.8 Est GFR (Non-Af Amer) 100.8 BUN/Creatinine Ratio 29.9 H (10-20) Glucose 92 (70-99) mg/dl Calcium 11.0 H (8.5-10.1) mg/dl Total Bilirubin 1.2 H (0.2-1) mg/dl AST 21 (15-37) U/L ALT 30 (12-78) U/L Alkaline Phosphatase 81 (45-117) U/L Troponin I 0.054 H* (0-0.045) ng/ml Total Protein 6.1 L (6.4-8.2) gm/dl Albumin 2.3 L (3.4-5.0) gm/dl Globulin 3.8 (2.5-4.0) gm/dl Albumin/Globulin Ratio 0.6 L (0.9-2) Imaging Data Radiologist's Impression: Chest x-ray:MPRESSION: Nodular airspace opacities are seen bilaterally. These have increased in size from 05/30/2019, and the largest to demonstrate foci of central necrosis/cavitation. Both neoplastic and infectious processes could have this appearance and correlation with the patient's clinical history will be essential. If clinically warranted chest CT could be considered for further assessment. CT scan of the chest: IMPRESSION: 1. Overall marked progression of multifocal metastatic disease as compared to 06/01/2019. 2. There has been extensive progression of soft tissue metastatic disease in the anterior lower neck and chest wall, axillary adenopathy, mediastinal adenopathy, and cervical adenopathy. 3. There is progressive pulmonary metastatic disease. 4. There are 2 new irregular foci of masslike consolidation in the right upper and right lower lobes. The lesion in the superior segment of the right lower lobe demonstrates internal cavitation. The right basilar lesion is almost completely cavitary with an air-fluid level. Although this could represent necrotic metastatic disease, the appearance also raises concern for a superimposed infectious process such as necrotic pneumonia or septic embolus. The lesion at the right lung base could also represent an abscess. Clinical correlation will be essential. ECG Data Attestation: I personally reviewed and interpreted this ECG as follows: Indication: + chest pain Rate (beats per minute): 118 Rhythm: + sinus tachycardia ECG ST segments: no ST elevation ECG Findings: no PVCs MDM Narrative The patient presents as above with concerns about chest pain earlier today as well as some concerns about aspiration and decreased oral intake over the past few days. The patient's physical exam reveals that she is weak. She was nonverbal during my exam of the history was obtained by the son. The patient's blood work reveals an unremarkable CBC. Sodium is 129. Potassium was 3.3. BUN is 17 and creatinine is 0.57. Troponin is slightly elevated at 0.054. A CT scan of the chest as noted above. There is concerns about possible infection or necrotic pneumonia versus septic embolus or a necrotic cancer in the lungs. Overall she has had worsening of her multifocal metastatic disease as well. The patient was given aspirin p.o. She was also ordered Lovenox injection and IV Levaquin for infection. She has multiple allergies. The patient will be seen by the hospitalist for further inpatient evaluation and care. Impression & Plan Elevated troponin, Chest pain, Pneumonia, Weakness Discharge Plan Visit Data Chief Complaint: Cardiac Assessment Stated Complaint: CHEST PAIN,DEHYDRATION ED Provider: Kentrell Orta Discharge Problem: Elevated troponin, Chest pain, Pneumonia, Weakness Patient Disposition: Being Evaluated by Hospitalist Forms Stand Alone Forms: My [facility] [employer] Prescriptions Prescriptions: No Action oxycodone 15 mg Tablet 15 - 45 mg PO Q3H PRN (Reason: Pain) RF: 0 lorazepam [Ativan] 1 mg Tablet 1 mg PO TID RF: 0 pantoprazole 40 mg tablet,delayed release (DR/EC) 40 mg PO QAM RF: 0 albuterol sulfate 2.5 mg /3 mL (0.083 %) solution for nebulization 3 mg inhalation Q4H PRN (Reason: Wheezing) RF: 0 albuterol sulfate [Ventolin HFA] 90 mcg/actuation HFA aerosol inhaler 2 puff inhalation Q4H PRN (Reason: Wheezing) RF: 0 potassium chloride 20 mEq tablet extended release 20 meq PO BID Qty: 60 RF: 1 magnesium oxide 400 mg (241.3 mg magnesium) tablet 400 mg PO BID Qty: 60 RF: 1 ondansetron HCl 8 mg tablet 8 mg PO DAILY PRN (Reason: Nausea) RF: 0 levothyroxine 50 mcg tablet 50 mcg PO QAM RF: 0 lactulose 10 gram/15 mL solution 10 g PO TID RF: 0 diphenhydramine HCl [Benadryl] 25 mg Capsule 25 mg PO Q8H PRN (Reason: lip swelling) Qty: 30 RF: 0 dexamethasone 2 mg tablet See Rx Instructions .ROUTE .COMPLEX Qty: 100 RF: 0 amoxicillin-pot clavulanate [Augmentin] 875-125 mg tablet 1 tab PO BID Qty: 14 RF: 0 Artificial Tears (cmc) 1 % drops 1 drops OP QID Qty: 15 RF: 5 acetaminophen [Tylenol Extra Strength] 500 mg tablet 1,000 mg PO Q8H PRN (Reason: pain) Qty: 60 RF: 0 Referrals Referrals: Edward Sanchez, ACNP-BC [Primary Care Provider] -
[2019-09-02] MEDS ORDERED: ASPIRIN CHEW 324 MG PO STA (22:20)
[2019-09-02] MEDS ORDERED: ENOXAPARIN 1 MG/KG SC STA (22:22)
--- NOTE | 2019-09-02 22:24 | CT Scan Report ---
CT SCAN OF THE CHEST WITHOUT IV CONTRAST CLINICAL HISTORY: Cough. Metastatic disease. COMPARISON STUDY: Chest x-ray dated 09/02/2019. Chest CT scans dated 06/01/2019 and 08/15/2018. TECHNIQUE: CT scan of the thorax was performed from the thoracic inlet to the upper abdomen. Images are reviewed in the axial, sagittal, and coronal planes. IV contrast was not administered for this ex amination as per the referring clinician. A dose lowering technique was utilized adhering to the warner Clement. The examination is degraded by streak artifact from the arms which could not be criss vated above the chest. CT DOSE: 328.45 mGy.cm FINDINGS: Thyroid: Atrophic. Thoracic aorta: The thoracic aorta is normal in caliber and demonstrates standard 3-vessel arch anato my. Heart: The heart is normal in size and without pericardial effusion. The coronary arteries are densel y calcified. Lungs and pleural spaces: Minimal secretions are noted in the trachea. There is an approximately 4 x 3.5 cm focus of irregular round consolidation in the superior segment of the right lower lobe seen on image #86. This demonstrates foci of central cavitation. There is surrounding tree-in-bud nodularity in the right upper lobe. This is new from previous. There is also a new cavitary lesion in the right lung base on image #183 which measures 4.7 x 3.7 cm. This demonstrates an air-fluid level. Foci of s maller irregular nodular consolidation without cavitation are seen in the left lower lobe on image #1 27. These measure 2.1 cm and 2.3 cm. There are numerous (at least 10) additional smaller pulmonary no dules. Overall this has progressed from 06/01/2019. No pleural effusion is identified. Lower neck: There are mildly enlarged bilateral cervical lymph nodes. A node on the right seen on jeaneth ge #11 measures 1.5 x 1.2 cm. Mediastinum: An enlarged prevascular node on image #94 measures 3.0 x 1.7 cm. This has increased in s ize from 05/31/2020 it measured 1.8 x 0.9 cm. A 2.2 x 1.7 cm prevascular node on image #83 has also in creased in size. Lauren: Not well assessed without IV contrast. Axillae: There is bilateral axillary lymphadenopathy. The largest node on the left measures 4.1 x 2.0 cm as seen on image #111, and the largest node on the right measures 2.9 x 2.0 cm as seen on image # 102. This has significantly increased in size from previous. Upper abdomen: There is a small hiatal hernia. A 1.2 cm left adrenal nodule is indeterminant but unch anged from previous. Skeletal structures: The skeletal structures are osteopenic. Degenerative change and hyperkyphosis ar e noted in the thoracic spine. There are healed right-sided rib fractures. No lytic or blastic bony l esions are clearly seen. Soft tissues: There is extensive dermal thickening and nodularity seen along the anterior chest wall. This extends from the submandibular region to the inferior sternum. The largest component is seen on image #63 and measures approximately 5 x 2 cm in axial dimension. IMPRESSION: 1. Overall marked progression of multifocal metastatic disease as compared to 06/01/2019. 2. There has been extensive progression of soft tissue metastatic disease in the anterior lower neck and chest wall, axillary adenopathy, mediastinal adenopathy, and cervical adenopathy. 3. There is progressive pulmonary metastatic disease. 4. There are 2 new irregular foci of masslike consolidation in the right upper and right lower lobes. The lesion in the superior segment of the right lower lobe demonstrates internal cavitation. The rig ht basilar lesion is almost completely cavitary with an air-fluid level. Although this could represen t necrotic metastatic disease, the appearance also raises concern for a superimposed infectious proce ss such as necrotic pneumonia or septic embolus. The lesion at the right lung base could also represe nt an abscess. Clinical correlation will be essential. 5. Additional findings as above. ACT 112: Negative or not required by law. Electronically signed by: Devan Meade M.D. 09/02/2019 10:22 PM
[2019-09-02] MEDS ORDERED: LEVOFLOXACIN/D5W 750 MG/150 ML BAG IV SCH (22:30)
[2019-09-02] MEDS ORDERED: PATIENT'S HEIGHT AND/OR WEIGHT NEEDED STA (22:45)
[2019-09-02] MEDS ORDERED: ERTAPENEM SODIUM 10 ML IV STA (23:07)
[2019-09-02] MEDS ORDERED: POTASSIUM CHLORIDE 20 MEQ TABCR PO STA (23:10)
[2019-09-02] MEDS ORDERED: NORMOSOL-R 1,000 ML IV ONE (23:12)
[2019-09-03 00:46] LABS: Partial Thromboplastin Ratio 0.8; Partial Thromboplastin Time 23.1 Seconds (21.0-31.0)
[2019-09-03 01:10] LABS: Thyroid Stimulating Hormone 1.1 uIu/ml (0.300-4.500); Troponin I 0.068 ng/ml (0-0.045)
[2019-09-03] MEDS ORDERED: LORazepam 0.5 MG TAB PO STA (01:29)
--- NOTE | 2019-09-03 01:38 | History & Physical Report ---
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 intake Anemia secondary to bleeding right neck tumor Right ptosis, right facial asymmetry ruled out intracranial tumor spread hypothyroidism, euthyroid as of today's TSH Medical telemetry Cultures, Ertapenem, Vancomycin Sputum cultures, MRSA nasal swab to guide therapy Swallow eval Aspiration precautions for now Pulmonary consult Re: Complicated pneumonia Trend troponin CT head RE right ptosis rule out tumor intracranial extension May need MRI brain if CT head negative Trend H&H, transfuse PRBC if hemoglobin less than 7 and or for symptomatic anemia Replace electrolytes May benefit from Palliative Care consultation to readdress goals of care given progression of disease. DVT prophylaxis. SCDs RE bleeding neck tumor Full code Patient son requesting updates from providers. Mr. Sharath Martinez, contact #[phone]. Text document was generated using [employer] voice recognition software. It may contain grammatical or spelling errors. Kindly contact undersigned for clarification of any documentation item in question. History of Present Illness Chief Complaint: Chest pain, coughing, possible aspiration [facility] History obtained from patient, family, and records. History somewhat limited from patient due to weakness. 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 Last confinement May 2019 facial swelling/possible cellulitis of external neck mass status post antibiotic Rx. Patient seen by Radiation Oncology and Palliative care services during confinement. Additional radiation therapy felt to be more risky as per consultation note. Palliative care/hospice also recommended by radiation oncologist - same as other academic tertiary care cancer centers that had seen patient in the past. Patient stated that she "was not yet ready to " as per palliative care note. Following discharge, patient saw a [facility] oncologist who eventually recommended hospice after adverse reaction to new chemotherapy agent. Patient family currently investigating high-dose IV Vitamin C therapy for patient's progressive cancer. Last 3 days, patient noted to be not eating as well as per family. Patient noted to have junky cough symptoms. Family worried about aspiration. No COVID 19 exposure as family has been doing self quarantine the last few months as per son. Usual achy headache symptoms. Patient family noted progression of right droopy eyelid symptoms bad enough that patient has to hold up her right upper eyelid to see. Right neck tumor progressively enlarging with intermittent bleeding at home. Patient had achy substernal chest pain nonradiating with some shortness of breath associated with cough symptoms. No fever, no chills. At the ER, troponin noted to be elevated. Aspirin given for possible ACS. Medical History as above Surgical History : PEG tube placement/removal Family History : heart disease Personal/Social history : Past tobacco abuse, no EtOH intake, retired from sales work, 2 sons currently staying with patient at home Allergies Allergy/AdvReac Type Severity Reaction Status Date / Time piperacillin [From Zosyn] Allergy Mild lip Verified 09/02/19 23:30 swelling tazobactam [From Zosyn] Allergy Mild lip Verified 09/02/19 23:30 swelling cefepime Allergy Rash Verified 09/02/19 23:30 omeprazole [From Prilosec] Allergy Rash Verified 09/02/19 23:30 prednisone Allergy Unknown Verified 09/02/19 23:30 Quinolones AdvReac Mild sick Verified 09/02/19 23:56 Home Medications Home Medications Medication Instructions Recorded Confirmed Type lorazepam [Ativan] 1 mg PO TID 08/15/18 09/02/19 History oxycodone 15 - 45 mg PO Q3H PRN 08/15/18 09/02/19 History pantoprazole 40 mg PO QAM 08/15/18 09/02/19 History albuterol sulfate 3 mg INHALATION Q4H PRN 08/16/18 09/02/19 History albuterol sulfate [Ventolin HFA] 2 puff INHALATION Q4H PRN 08/16/18 09/02/19 History magnesium oxide 400 mg PO BID #60 tab 08/18/18 09/02/19 Rx levothyroxine 50 mcg PO QAM 05/10/19 09/02/19 History ondansetron HCl 8 mg PO DIRECTED PRN 05/10/19 09/02/19 History acetaminophen [Tylenol Extra 1,000 mg PO Q8H PRN #60 tab 06/07/19 09/02/19 Rx Strength] carboxymethylcellulose sodium 1 drops OP QID #15 ml 06/07/19 09/02/19 Rx [Artificial Tears (cmc)] dexamethasone See Rx Instructions .ROUTE 06/07/19 09/02/19 Rx .COMPLEX #100 tab Past Med/Surg History Medical History Cancer of neck Cholelithiasis Facial swelling GERD (gastroesophageal reflux disease) Goals of care, counseling/discussion Head and neck cancer (Chronic) 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 Hypothyroidism Surgical History PEG (percutaneous endoscopic gastrostomy) status Removed Family History Other Cancer Heart disease Social History Preferred Language: Georgian Communication Ability: Effective Communication Ability Comment: cannot see out of R eye Cloud Engagement Partner Required: No Beliefs That Will Affect Care: None marital status: Unknown Current Living Situation: Family Current Living Situation Comment: lives alone in high rise apartment Feels Safe at Home: Yes Safety Concerns: Feels Safe At This Time Smoking Status: Smoker, status unknown Hx Alcohol Use: No Hx Substance Use: No Review of Systems Review of Systems: As per HPI, all 10 systems reviewed, all other ROS negative Physical Exam Physical Exam: GENERAL: uncomfortable, no respiratory distress, chronically ill, wane SKIN: Pallor, warm HEENT: Pale palpebral conjunctivae, R ptosis, facial asymmetry, limited mouth opening, dry buccal mucosa NECK : Tender fungating right cervical/submandibular mass with bleeding areas extending to right face CHEST : Decreased breath sounds , no tenderness HEART : Tachycardic , no obvious murmurs ABDOMEN: Some distention, nontender EXTREMITIES : No LE swelling, no LE tenderness, no other conspicuous deformities noted NEUROLOGIC : Coherent, ptosis right, facial asymmetry, gait and stance not assessed Results & Data Results & Data ([facility]) Vital Signs (Past 12 Hours) Vital Signs Temp Pulse Resp BP Pulse Ox 09/03/19 00:00 112 H 14 114/78 99 09/02/19 23:30 110 H 24 106/70 96 09/02/19 23:00 112 H 20 107/80 100 09/02/19 22:31 121 H 16 111/89 94 06/19/20 22:00 114 H 24 113/89 94 09/02/19 21:43 115 H 20 110/92 96 09/02/19 21:00 116 H 16 131/110 H 95 09/02/19 19:58 36.5 C 127 H 20 114/90 96 Laboratory Results Laboratory Results WBC 10.47 K/uL (4.8-10.8) 09/02/19 20:23 RBC 3.93 M/uL (4.2-5.4) L 09/02/19 20:23 Hgb 11.4 g/dL (12.0-16.0) L 09/02/19 20:23 Hct 34.3 % (37-47) L 09/02/19 20:23 MCV 87.3 fL (80-100) 09/02/19 20:23 MCH 29.0 pg (25-34) 09/02/19 20:23 MCHC 33.2 g/dL (32-36) 09/02/19 20:23 Plt Count 275 K/uL (130-400) 09/02/19 20:23 Immature Gran % (Auto) 1.0 % 09/02/19 20:23 Neut % (Auto) 79.7 % 09/02/19 20:23 Lymph % (Auto) 7.0 % 09/02/19 20:23 [place] % (Auto) 12.1 % 09/02/19 20:23 Eos % (Auto) 0.0 % 09/02/19 20:23 Baso % (Auto) 0.2 % 09/02/19 20:23 Immature Gran # (Auto) 0.10 K/uL (0.00-0.02) H 09/02/19 20:23 Neut # (Auto) 8.35 K/uL (1.4-6.5) H 09/02/19 20:23 Lymph # (Auto) 0.73 K/uL (1.2-3.4) L 09/02/19 20:23 [place] # (Auto) 1.27 K/uL (0.11-0.59) H 09/02/19 20:23 Eos # (Auto) 0.00 K/uL (0-0.5) 09/02/19 20:23 Baso # (Auto) 0.02 K/uL (0-0.2) 09/02/19 20:23 APTT 23.1 Seconds (21.0-31.0) 09/03/19 00:22 PTT Ratio 0.8 09/03/19 00:22 Sodium 129 mmol/L (136-145) L 09/02/19 20:23 Potassium 3.3 mmol/L (3.5-5.1) L 09/02/19 20:23 Chloride 91 mmol/L (98-107) L 09/02/19 20:23 Carbon Dioxide 26 mmol/L (21-32) 09/02/19 20:23 Anion Gap 12.0 (3-11) H 09/02/19 20:23 BUN 17 mg/dl (7-18) 09/02/19 20:23 Creatinine 0.57 mg/dl (0.6-1.2) L 09/02/19 20:23 Est Cr Clr Drug Dosing Not Reportable 09/02/19 20:23 Est GFR ( Amer) 116.8 09/02/19 20:23 Est GFR (Non-Af Amer) 100.8 09/02/19 20:23 BUN/Creatinine Ratio 29.9 (10-20) H 09/02/19 20:23 Glucose 92 mg/dl (70-99) 09/02/19 20:23 Osmolality 275 mOsm/kg (280-300) L 09/03/19 00:31 Lactate 1.5 mmol/L (0.4-2.0) 09/03/19 00:22 Calcium 11.0 mg/dl (8.5-10.1) H 09/02/19 20:23 Total Bilirubin 1.2 mg/dl (0.2-1) H 09/02/19 20:23 AST 21 U/L (15-37) 09/02/19 20:23 ALT 30 U/L (12-78) 09/02/19 20:23 Alkaline Phosphatase 81 U/L (45-117) 09/02/19 20:23 Troponin I 0.068 ng/ml (0-0.045) H* 09/03/19 00:31 Total Protein 6.1 gm/dl (6.4-8.2) L 09/02/19 20:23 Albumin 2.3 gm/dl (3.4-5.0) L 09/02/19 20:23 Globulin 3.8 gm/dl (2.5-4.0) 09/02/19 20:23 Albumin/Globulin Ratio 0.6 (0.9-2) L 09/02/19 20:23 TSH 1.100 uIu/ml (0.300-4.500) 09/03/19 00:31 PTH Intact 19.6 pg/ml (18.4-80.1) 09/03/19 00:31 Blood Type O Positive 09/03/19 00:31 Antibody Screen NEGATIVE 09/03/19 00:[address]: 1. Overall marked progression of multifocal metastatic disease as compared to 06/01/2019. 2. There has been extensive progression of soft tissue metastatic disease in the anterior lower neck and chest wall, axillary adenopathy, mediastinal adenopathy, and cervical adenopathy. 3. There is progressive pulmonary metastatic disease. 4. There are 2 new irregular foci of masslike consolidation in the right upper and right lower lobes. The lesion in the superior segment of the right lower lobe demonstrates internal cavitation. The right basilar lesion is almost completely cavitary with an air-fluid level. Although this could represent necrotic metastatic disease, the appearance also raises concern for a superimposed infectious process such as necrotic pneumonia or septic embolus. T he lesion at the right lung base could also represent an abscess. Clinical correlation will be essential. EKG as per my interpretation rate 120, sinus tachycardia, LAD, LAFB, inferior infarct
[2019-09-03] MEDS ORDERED: NORMOSOL-R 1,000 ML IV ONE (01:39)
[2019-09-03] MEDS: POTASSIUM CHLORIDE / WTR 10 MEQ/100 ML PLCT IV SCH ×2 (01:58→05:59)
[2019-09-03 02:23] LABS: Magnesium 1.7 mg/dl (1.8-2.4)
[2019-09-03] MEDS: POTASSIUM CHLORIDE 40 MEQ in SODIUM CHLORIDE 0.9% 1000ML 1,000 ML IV SCH ×2 (02:29→15:29)
[2019-09-03] MEDS ORDERED: MAGNESIUM SULFATE / D5W 1 GM/100 ML BAG IV ONE (03:33)
[2019-09-03] MEDS ORDERED: ACETAMINOPHEN 325 MG TAB PO PRN (03:33)
[2019-09-03] MEDS ORDERED: OXYCODONE HCL IR 30 MG TAB (IMMEDIATE RELEASE) PO PRN (03:33)
[2019-09-03] MEDS ORDERED: PROMETHAZINE HCL 12.5 MG in SODIUM CHLORIDE 0.9% 50 ML IV PRN (03:33)
[2019-09-03] MEDS ORDERED: IPRATROPIUM BROMIDE NEB SOLN 0.02% 2.5 ML VIAL INH PRN (03:33)
[2019-09-03] MEDS ORDERED: XOPENEX/ATROVENT 1.25mg/0.5MG NEB COMBO NEB PRN (03:33)
[2019-09-03] MEDS ORDERED: KETOROLAC TROMETHAMINE 15 MG/ML VIAL IV PRN (03:33)
[2019-09-03] MEDS ORDERED: MoRPHine SULFATE 4 MG/ML 1 ML CARP\\VIAL IV PRN (03:33)
[2019-09-03] MEDS ORDERED: LEVALBUTEROL 1.25MG/0.5ML NEB INH PRN (03:33)
[2019-09-03] MEDS ORDERED: ERTAPENEM CONSULT ACTIVE PRN (04:05)
[2019-09-03] MEDS ORDERED: VANCOMYCIN CONSULT ACTIVE PRN (04:06)
[2019-09-03] MEDS ORDERED: VANCOMYCIN HCL 1,250 MG in SODIUM CHLORIDE 0.9% 250 ML IV STA (04:14)
[2019-09-03 05:54] LABS: Influenza A virus by PCR Neg for Influ A (Neg); Influenza B virus by PCR Neg for Influ B (Neg)
--- NOTE | 2019-09-03 06:15 | CT Scan Report ---
CT head/brain wo con CT DOSE: 614.27 mGy.cm HISTORY: Metastatic disease rose, ptosis TECHNIQUE: Multiaxial CT images of the head were performed without the use of intravenous contrast. A dose lowering technique was utilized adhering to the principles of ALARA. Comparison: None. Findings: Large heterogeneous partially calcified mass involving the right facial features and right mastoid. This is a maximum dimension of 8 x 6 cm. There is extending to the right posterior nasal cav ity, tip of the right mastoid and it's inferior margin, as well as components of the right temporal b one, sphenoid region, and clivus. There is most likely extension to the right temporal fossa and possibly right temporal lobe. The right mastoid air cells are opacified. Inferior extent of the mass is not defined on this exam. The brain specifically demonstrates a component of chronic small vessel change. Ventricular system re betty midline. There is no evidence for acute intracranial hemorrhage. The calvarium and skull base a re intact. The ventricles and sulci are within normal limits. There is no mass, hematoma, midline cricket ft, or acute infarct. Impression: 1. Large right facial mass showing erosive change in extension to the right temporal fossa, right tem poral lobe, as well as right mastoid, sphenoid sinus, with destructive bony changes as discussed. 2. This appearance is consistent with that of a large metastatic deposit with associated bony destruc tive change. ACT 112: Negative or not required by law. The above report was generated using voice recognition software. It may contain grammatical, syntax or spelling errors. Electronically signed by: Dinesh Del Real M.D. 09/03/2019 6:13 AM
[2019-09-03 06:28] LABS: Basophils # (auto) 0.01 K/uL (0-0.2); Basophils % (auto) 0.1 %; Hematocrit (blood only) 29.9 % (37-47); Hemoglobin 9.9 g/dL (12.0-16.0); Immature Granulocytes # (auto) 0.08 K/uL (0.00-0.02); Lymphocytes # (auto) 0.59 K/uL (1.2-3.4); Lymphocytes % (auto) 7.2 %; Mean Corpuscular Hemoglobin 28.9 pg (25-34); Mean Corpuscular Hgb Conc 33.1 g/dL (32-36); Mean Corpuscular Volume 87.2 fL (80-100); Mean Platelet Volume 9.7 fL (7.4-10.4); Monocytes # (auto) 1.03 K/uL (0.11-0.59); Monocytes % (auto) 12.5 %; Neutrophils # (auto) 6.53 K/uL (1.4-6.5); Neutrophils % (auto) 79.2 %; Platelet Count 234 K/uL (130-400); RDW Coefficient of Variation 16.6 % (11.5-14.5); RDW Standard Deviation 52.6 fL (36.4-46.3); Red Blood Count 3.43 M/uL (4.2-5.4); White Blood Count 8.24 K/uL (4.8-10.8)
[2019-09-03 07:05] LABS: BUN Creatinine Ratio 45.3 (10-20); Creatinine Clr Calc Pharmacy 141.1 ml/min; Est GFR (African American) 141.2; Est GFR (Non-African American) 121.8; Magnesium 2.5 mg/dl (1.8-2.4); Potassium 2.7 mmol/L (3.5-5.1); Troponin I 0.054 ng/ml (0-0.045)
[2019-09-03] MEDS: LEVOTHYROXINE SODIUM 50 MCG TABLET PO SCH (07:09)
[2019-09-03] MEDS: LORazepam 1 MG TAB PO SCH ×3 (08:32→21:50)
[2019-09-03] MEDS: PANTOprazole 40 MG TAB PO SCH (08:32)
--- NOTE | 2019-09-03 08:42 | Pharmacy Report ---
Pharmacy Abx Initial Consult - Date of Service September 03, 2019 - Pharmacy Dosing Scope Date of Consult: 09/03/2019 Consultation requested by: Dr. Reaves Pharmacy is consulted to initiate Vancomycin & Ertapenem IV dosing therapy, order appropriate labs and adjust drug dose/frequency. - Subjective The patient is a 58 year old F admitted on 09/03/19 02:03. - Objective Height: 5 ft 1 in Weight: 54.6 kg Vital Signs (Past 12hrs): Vital Signs Temp Pulse Pulse Resp BP BP Pulse Ox 09/03/19 04:06 102 H 09/03/19 03:33 36.3 C L 104 H 18 108/82 92 09/03/19 02:30 103 H 18 112/87 100 09/03/19 02:00 105 H 23 118/87 100 09/03/19 01:00 103 H 20 108/88 100 09/03/19 00:30 111 H 24 118/81 99 09/03/19 00:23 108 H 18 111/87 98 09/03/19 00:00 112 H 14 114/78 99 09/02/19 23:30 110 H 24 106/70 96 09/02/19 23:00 112 H 20 107/80 100 09/02/19 22:31 121 H 16 111/89 94 09/02/19 22:00 114 H 24 113/89 94 09/02/19 21:43 115 H 20 110/92 96 09/02/19 21:00 116 H 16 131/110 H 95 Lab Results (24hrs): Laboratory Tests (24 Hours) 09/03/19 09/03/19 09/02/19 05:33 05:33 20:23 WBC 8.24 Neut # (Auto) 6.53 H Creatinine 0.32 L 0.57 L Est Cr Clr Drug Dosing 141.1 Not Reportable 09/02/19 20:23 WBC 10.47 Neut # (Auto) 8.35 H Creatinine Est Cr Clr Drug Dosing Micro Results: 09/03/19 00:31 Aerobic Blood Culture - Pending Blood Anaerobic Blood Culture - Pending 09/03/19 00:22 Aerobic Blood Culture - Pending Blood Anaerobic Blood Culture - Pending - Risk Factors for Resistance * Immunocompromised: * Gilotrif * Dexamethasone * Antimicrobial use within the last 90 days: * Ciprofloxacin * Metronidazole * Amoxicillin/Clavulanic Acid - Assessment & Plan Assessment 58 year old F admitted secondary to chest pain * PMHx significant for squamous cell carcinoma of head/neck with mets to lung and back * Chest CT showed "2 new irregular foci of masslike consolidation in the right upper and right lower lobes...lesion in the superior segment of the right lower lobe demonstrates internal cavitation...right basilar lesion is almost completely cavitary with an air-fluid level...raises concern for a superimposed infectious process such as necrotic pneumonia or septic embolus...lesion at the right lung base could also represent an abscess" * Patient has been started on Vancomycin and Ertapenem for this reason, both pharmacy consults * Patient is afebrile, WBCs 8,200, SCr 0.32/eCrCl 141, lactic acid 1.5 * Blood cultures pending, MRSA nasal swab negative, Influenza A/B negative, COVID negative Plan Vancomycin & Ertapenem for treatment of pneumonia/pulmonary abscess Vancomycin IV * Estimated PK Parameters: Vd 0.6 L/kg, You 0.121 hr-1, t1/2 ~6 hrs * Loading dose: 1250 mg (23 mg/kg) * Maintenance dose: 750 mg IV (14 mg/kg) every 10 hours - based on previous admission data * Goal trough level: 15 to 20 mcg/mL * Trough level ordered for 09/05/2019 Ertapenem * 1 g IV every 24 hours Pharmacy will continue to follow and will adjust dose/frequency as necessary. Thank you.
[2019-09-03 09:31] LABS: BUN Creatinine Ratio 51.9 (10-20); Calcium 10.1 mg/dl (8.5-10.1); Creatinine Clr Calc Pharmacy 155.7 ml/min; Est GFR (African American) 145.9; Est GFR (Non-African American) 125.9; Potassium 3.6 mmol/L (3.5-5.1)
[2019-09-03] MEDS: ARTIFICIAL TEARS OP SCH ×4 (09:35→21:51)
--- NOTE | 2019-09-03 11:10 | Pulmonary Consultation ---
Date of Consultation September 03, 2019 Assessment & Plan (1) Abnormal chest CT: CT chest without contrast 09/02/2019: Multiple pulmonary nodularities appreciated bilaterally which are present even on the previous CAT scan in May, there are cavitary lesion appreciated in the right upper lobe as well as right lower lobe which is new compared to the CAT scan done in June. Most of the nodularities are peripherally based abutting the pleura. 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 Patient has no fever, she does not even complain of any shortness of breath or cough. The chances of it being an infectious process is low. I will order ESR CRP and procalcitonin. Autoimmune process especially EPGA could present this way but the patient's creatinine is totally normal which goes against it. Endocarditis giving septic emboli to the periphery of the lungs can present this way to but she had these nodules in May 2019 and patient having no murmur on physical examination goes against this differential. 2D echo to rule out any vegetations could be thought of. I would continue with antibiotics for the time being till we have more septic work-up back. Overall prognosis of the patient is very grave. Recommend palliative care consult getting involved. (2) Head and neck cancer: History of Present Illness Attending Physician: Carina Muñiz DO History of Present Illness 58-year-old female with past medical history of head and neck cancer diagnosed in 2015 s/p chemo and radiation.She has received multiple chemotherapies at different locations. She was recently admitted in the [facility] for possible cellulitis of the external neck mass patient. Patient was seen by radiation oncology and palliative care services during the previous admission. Additional radiation therapy felt to be more risky as per the consultation note. Patient has been brought in because of poor appetite and failure to thrive. Pulmonary was consulted because of multiple opacities and nodularities appreci ated on the CAT scan along with cavitary lesions. She is a very poor historian. At the time of physical examination patient is somnolent she responds to answers in yes or no and very slowly. Patient denied any chest pain at that time denied any shortness of breath at that time. No nausea or vomiting. History obtained from previous chart Allergies Allergy/AdvReac Type Severity Reaction Status Date / Time piperacillin [From Zosyn] Allergy Mild lip Verified 09/02/19 23:30 swelling tazobactam [From Zosyn] Allergy Mild lip Verified 09/02/19 23:30 swelling cefepime Allergy Rash Verified 09/02/19 23:30 omeprazole [From Prilosec] Allergy Rash Verified 09/02/19 23:30 prednisone Allergy Unknown Verified 09/02/19 23:30 Quinolones AdvReac Mild sick Verified 09/02/19 23:56 Home Medications Home Medications Medication Instructions Recorded Confirmed Type lorazepam [Ativan] 1 mg PO TID 08/15/18 09/02/19 History oxycodone 15 - 45 mg PO Q3H PRN 08/15/18 09/02/19 History pantoprazole 40 mg PO QAM 08/15/18 09/02/19 History albuterol sulfate 3 mg INHALATION Q4H PRN 08/16/18 09/02/19 History albuterol sulfate [Ventolin HFA] 2 puff INHALATION Q4H PRN 08/16/18 09/02/19 History magnesium oxide 400 mg PO BID #60 tab 08/18/18 09/02/19 Rx levothyroxine 50 mcg PO QAM 05/10/19 09/02/19 History ondansetron HCl 8 mg PO DIRECTED PRN 05/10/19 09/02/19 History acetaminophen [Tylenol Extra 1,000 mg PO Q8H PRN #60 tab 06/07/19 09/02/19 Rx Strength] carboxymethylcellulose sodium 1 drops OP QID #15 ml 06/07/19 09/02/19 Rx [Artificial Tears (cmc)] dexamethasone See Rx Instructions .ROUTE 06/07/19 09/02/19 Rx .COMPLEX #100 tab Patient History Medical History Cancer of neck Cholelithiasis Facial swelling GERD (gastroesophageal reflux disease) Goals of care, counseling/discussion Head and neck cancer (Chronic) 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 Hypothyroidism Surgical History PEG (percutaneous endoscopic gastrostomy) status Removed Family History Other Cancer Heart disease Social History Preferred Language: Gabonese Communication Ability: Effective Communication Ability Comment: 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 Beliefs That Will Affect Care: None marital status: Unknown Current Living Situation: Family Current Living Situation Comment: lives alone in high rise apartment Feels Safe at Home: Yes Safety Concerns: Feels Safe At This Time Smoking Status: Smoker, status unknown Hx Alcohol Use: No Hx Substance Use: No Review of Systems Review of Systems: All systems reviewed & are unremarkable except as noted in HPI & below and Unobtainable due to cognitive status Physical Exam Physical Exam: Constitutional: No acute distress HEENT: Sluggish right pupil reflex, cataract bilateral, significant right-sided lateral mass which is oozing and necrotizing. It is extending towards the anterior part of her neck Respiratory system: Decreased air entry bilaterally, positive crackles bilateral lower lobes, no wheeze, no rhonchi CVS: S1-S2 positive, no murmurs or gallops Abdomen: Soft, nontender, nondistended, positive bowel sounds x4 Extremities: +2 pulses bilaterally radialis/ dorsalis pedis, no cyanosis, no edema Neuro: Lethargic oriented to self Psych: Flat mood and affect Skin: no rashes, warm and dry Lymphatic: no cervical or axillary lymphadenopathy Results & Data Results & Data ([facility]) Vital Signs (Past 12 Hours) Vital Signs Temp Pulse Pulse Resp BP BP Pulse Ox 09/03/19 08:34 96 H 09/03/19 04:06 102 H 09/03/19 03:33 36.3 C L 104 H 18 108/82 92 09/03/19 02:30 103 H 18 112/87 100 09/03/19 02:00 105 H 23 118/87 100 09/03/19 01:00 103 H 20 108/88 100 09/03/19 00:30 111 H 24 118/81 99 09/03/19 00:23 108 H 18 111/87 98 09/03/19 00:00 112 H 14 114/78 99 09/02/19 23:30 110 H 24 106/70 96 09/03/19 05:33 09/03/19 08:15 PG Care Time/CCT Total # of Minutes Spent Total Time Spent with Patient: Total time spent is greater than 50% in coordination of care (as documented) at patient's floor/unit and/or counseling patient: [place] [address] Initial Inpt Care Lvl 3 Patient Type New Diagnoses Abnormal chest CT R93.89 Head and neck cancer C76.0
--- NOTE | 2019-09-03 11:23 | Electrocardiogram Report ---
Test Reason : Blood Pressure : / mmHG Vent. Rate : 118 BPM Atrial Rate : 118 BPM P-R Int : 132 ms QRS Dur : 080 ms QT Int : 332 ms P-R-T Axes : 074 -70 063 degrees QTc Int : 465 ms Poor data quality, interpretation may be adversely affected Sinus tachycardia Left anterior fascicular block Inferior infarct , age undetermined Abnormal ECG When compared with ECG of 30-MAY-2019 14:27, Vent. rate has increased BY 51 BPM Left anterior fascicular block is now Present Inferior infarct is now Present Confirmed by Davin Palmer ([id number]) on 09/03/2019 11:22:52 AM Referred By: REFERRED SELF Confirmed By:Davin Palmer
--- NOTE | 2019-09-03 11:38 | Hospitalist Progress Note ---
Date of Service September 03, 2019 Assessment & Plan (1) Pneumonia: Pulm consulted. Necrotizing progressed tumor vs necrotizing pneumonia vs septic emboli vs autoimmune phenomena (less likely). Pt feels better on abx so will cont Vanc/ERtapenem now . Likely tumor, not infectious per pulm. Pal liative care strongly recommended for progressive metastatic head and neck SCCA status post chemoradiation, immunotherapy since 2014 (2) Elevated troponin: Echo ordered, elevated trop likely a result of strain in setting of tachycardia and ?pneumonia. Pt declined echo. (3) Weakness: Multifactorial, namely 2/2 Stage IV cancer with progression. Supportive care and trial of antibiotics as above. PT/OT to assess safety to return home. Some ? aspiration also present, however, patient declined speech consultation today also. Will remain NPO until she can be reassessed again in am. She is fine with this. (4) Head and neck cancer: Significant decaying malodorous tumor with progression. Wound care consult placed. (5) Hypothyroidism: Holding home Synthroid while NPO. (6) DVT prophylaxis: SCDs-bleeding tumor present relative contraindication Full Code-confirmed Dispo-uncertain at this time. Patient refuses anywhere but home on discharge. May need additional help in the home-I am hopeful they will let us discharge her out on Hospice. Will continue the conversation and consult Palliative care over the weekend. Carina Muñiz DO [facility] and Anticipated Discharge Date Admission Date: September 03, 2019 Subjective patient initially declined exam. She declined to speak with her son by phone, also. He states that is unusual for her. She denies pain, reports an improvement in weakness, but is still unable to move much in bed today. She feels improved since admission She reports being unable to open her eyes on her own. She states she has been bedridden for 4 weeks and that her children take care of her. I spent about 45 minutes on the phone with both her sons today answering many questions that they had, ranging from other Oncologic options, to how progressive the tumor was at this point. We discussed the pulmonologists recommendations about the probable etiology of the lung lesions, which have been there since May at least. Sons report they are very surprised by her recent decline and weakness. They confirm they still want to try and find a cure for her and they confirm that she is still a full code status. Review of Systems Review of Systems: All systems reviewed & are unremarkable except as noted in Subjective Physical Exam Physical Exam: CONSTITUTIONAL: thin, cachectic, vitals as above, generally ill-appearing, somnolent. EYES: unable to spontaneously open eyelid (CN III vs CN VII deficit), cannot test EOM as a result, normal conjunctivae, no scleral icterus ENT: large, malodorous, decaying tissue that has visible necrotic tissue and some vascularity to it on the right side of her face with extension down into her anterior neck and anterior chest wall. External right ear is involved and distorted. RESPIRATORY: clear to auscultation bilaterally, no crackles, rales or wheezes, normal respiratory effort -limited exam as patient is too weak to move or roll CARDIOVASCULAR: regular rate and rhythm, S1 and 2 heard without murmurs, gallops or rubs, no JVD, no peripheral edema GASTROINTESTINAL: normal bowel sounds, soft, nontender, nondistended. MUSCULOSKELETAL: weak, deconditioned. SKIN: warm and dry, large head and neck tumors as above. NEUROLOGIC: Able to awaken and speaks in a raspy voice that is like a forced whisper. Appears to be mentating clearly. CN deficits as above Results & Data Results & Data ([facility]) Vital Signs (Past 12 Hours) Vital Signs Temp Pulse Pulse Resp BP BP Pulse Ox 09/03/19 11:23 36.5 C 128 H 20 97/58 L 90 09/03/19 08:34 96 H 09/03/19 04:06 102 H 09/03/19 03:33 36.3 C L 104 H 18 108/82 92 09/03/19 02:30 103 H 18 112/87 100 09/03/19 02:00 105 H 23 118/87 100 09/03/19 01:00 103 H 20 108/88 100 09/03/19 00:30 111 H 24 118/81 99 09/03/19 00:23 108 H 18 111/87 98 09/03/19 00:00 112 H 14 114/78 99 Laboratory Results Short CBC 09/02/19 09/03/19 Range/Units 20:23 05:33 WBC 10.47 8.24 (4.8-10.8) K/uL Hgb 11.4 L 9.9 L (12.0-16.0) g/dL Hct 34.3 L 29.9 L (37-47) % Plt Count 275 234 (130-400) K/uL BMP 09/02/19 09/03/19 09/03/19 20:23 05:33 08:15 Sodium 129 L 133 L 134 L Potassium 3.3 L 2.7 L D 3.6 D Chloride 91 L 94 L 96 L Carbon Dioxide 26 26 27 BUN 17 14 15 Creatinine 0.57 L 0.32 L 0.29 L Glucose 92 108 H 67 L Calcium 11.0 H 10.0 10.1 Cardiac Enzymes 09/02/19 09/03/19 09/03/19 Range/Units 20:23 00:31 05:33 Troponin I 0.054 H* 0.068 H* 0.054 H* (0-0.045) ng/ml Liver Function 09/02/19 Range/Units 20:23 Total Bilirubin 1.2 H (0.2-1) mg/dl AST 21 (15-37) U/L ALT 30 (12-78) U/L Alkaline Phosphatase 81 (45-117) U/L Albumin 2.3 L (3.4-5.0) gm/dl
[2019-09-03] MEDS: VANCOMYCIN HCL 750 MG in SODIUM CHLORIDE 0.9% 250 ML IV SCH (15:29)
[2019-09-03] MEDS ORDERED: LORazepam 0.25 MG/0.5 ML VIAL IV PRN (20:33)
[2019-09-03] MEDS: ERTAPENEM SODIUM 1,000 MG in SODIUM CHLORIDE 0.9% 50 ML IV SCH (21:54)
[2019-09-03] MEDS ORDERED: MoRPHine SULFATE 2 MG/ML CARP IV PRN (22:41)
--- NOTE | 2019-09-03 22:41 | Communication Note ---
Date of Service: September 03, 2019 Made aware by RN of transient bradycardic episode around 10:30 PM. Cardiac rate 40s. Patient asleep during episode. SBP 90s potassium 3.3 mag 1.5 glucose 62 AP Hypotension, hypoglycemia ? Adrenal insufficiency hx Decadron Rx taper as per records Decadron IM now (IV team currently unable to obtain IV access.) Replace electrolytes once with IV access. I called patient's son (Sharath) over the phone to inquire about patient's current Decadron regimen. Patient currently takes 1 Decadron tablet daily (unknown dose) on review of patient's medication list as per son. Patient son requested to obtain patient's Decadron pill bottle and to relay dosage information to AM provider.
[2019-09-03 23:23] LABS: BUN Creatinine Ratio 39.4 (10-20); C Reactive Protein 11.7 mg/dl (0-0.29); Calcium 9.8 mg/dl (8.5-10.1); Creatinine Clr Calc Pharmacy 155.7 ml/min; Est GFR (African American) 145.9; Est GFR (Non-African American) 125.9; Magnesium 1.5 mg/dl (1.8-2.4); Potassium 3.3 mmol/L (3.5-5.1)
--- NOTE | 2019-09-04 00:42 | Communication Note ---
Date of Service: September 04, 2019
[2019-09-04] MEDS ORDERED: DEXAMETHASONE SOD PHOSPHATE 4 MG in SYRINGE 0 ML IV STA (00:44)
[2019-09-04] MEDS ORDERED: D5W AND LACTATED RINGERS 1,000 ML IV SCH (00:45)
[2019-09-04] MEDS ORDERED: POTASSIUM CHLORIDE 40 MEQ in D5W AND NSS 1,000 ML IV SCH (00:45)
[2019-09-04] MEDS ORDERED: DEXAMETHASONE SOD PHOSPHATE 20 MG/5 ML ML IM STA (00:56)
[2019-09-04] MEDS: ERTAPENEM SODIUM 1,000 MG in SODIUM CHLORIDE 0.9% 50 ML IV SCH ×2 (01:00→08:36)
[2019-09-04] MEDS: POTASSIUM CHLORIDE / WTR 10 MEQ/100 ML PLCT IV SCH ×4 (01:01→08:22)
[2019-09-04] MEDS: MAGNESIUM SULFATE / D5W 1 GM/100 ML BAG IV SCH ×6 (01:01→11:03)
[2019-09-04] MEDS: VANCOMYCIN HCL 750 MG in SODIUM CHLORIDE 0.9% 250 ML IV SCH ×3 (01:01→21:13)
[2019-09-04] MEDS ORDERED: DEXAMETHASONE SOD INJ 4 MG/ML VIAL IM STA (01:16)
[2019-09-04] MEDS: LEVOTHYROXINE SODIUM 50 MCG TABLET PO SCH (05:05)
[2019-09-04 06:53] LABS: Hematocrit (blood only) 33.1 % (37-47); Hemoglobin 10.1 g/dL (12.0-16.0); Mean Corpuscular Hemoglobin 27.5 pg (25-34); Mean Corpuscular Hgb Conc 30.5 g/dL (32-36); Mean Corpuscular Volume 90.2 fL (80-100); Mean Platelet Volume 9.6 fL (7.4-10.4); Platelet Count 237 K/uL (130-400); RDW Coefficient of Variation 16.7 % (11.5-14.5); RDW Standard Deviation 54.7 fL (36.4-46.3); Red Blood Count 3.67 M/uL (4.2-5.4); White Blood Count 8.52 K/uL (4.8-10.8)
[2019-09-04 07:22] LABS: BUN Creatinine Ratio 38.4 (10-20); Calcium 9.8 mg/dl (8.5-10.1); Creatinine Clr Calc Pharmacy 167.2 ml/min; Est GFR (African American) 149.3; Est GFR (Non-African American) 128.8; Potassium 3.3 mmol/L (3.5-5.1)
[2019-09-04] MEDS: ARTIFICIAL TEARS OP SCH ×4 (08:21→21:15)
[2019-09-04] MEDS: PANTOprazole 40 MG TAB PO SCH (08:21)
[2019-09-04] MEDS: LORazepam 1 MG TAB PO SCH (08:21)
[2019-09-04] MEDS ORDERED: MoRPHine SULFATE 4 MG/ML 1 ML CARP\\VIAL IV PRN (08:24)
--- NOTE | 2019-09-04 08:42 | Hospitalist Progress Note ---
Date of Service September 04, 2019 Assessment & Plan (1) Pneumonia: Pulm consulted. Necrotizing progressed tumor vs necrotizing pneumonia vs septic emboli vs autoimmune phenomena (less likely). Cont Vanc and Ertapenem for now. It is now clear that mucous plugging was playing a role here. Will defer to ICU for management. Palliative care strongly recommended for progressive metastatic head and neck SCCA status post chemoradiation, immunotherapy since 2015. Pt and sons are resistant to this at this time. (2) Elevated troponin: Echo ordered, elevated trop likely a result of strain in setting of tachycardia and ?pneumonia. Pt declined echo. (3) Weakness: Multifactorial, namely 2/2 Stage IV cancer with progression. Supportive care and trial of antibiotics as above. PT/OT to assess safety to return home if she is able to be extubated. (4) Head and neck cancer: Significant decaying malodorous tumor with progression. Wound care consult placed. Very limited therapy options at this point. She has been to multiple institutions who recommend palliative care and has failed Keytruda. (5) Hypothyroidism: Holding home Synthroid while NPO. (6) DVT prophylaxis: SCDs-bleeding tumor present relative contraindication Full Code-confirmed Dispo-transfer to ICU [facility] Admission and Anticipated Discharge Date Admission Date: September 03, 2019 Subjective 0900: I CONTACTED HER PHARMACY TO CONFIRM DEXAMETHASONE RX: 1MG PO BID, LAST FILLED 07/27/2019. HOME MED REC WAS UPDATED. 1100: Contacted by nurse for increased SOB. O2 sat was 90-91% on room air. Gave supplemental oxygen, noted stridor on exam. Patient had increased difficulty producing her words and phonating, moreso than yesterday. She reported feeling like her airway was closing. Anaphylaxis was considered, however, there was not a likely medication or other allergic environmental agent present. She was started on NSS 1L bolus. Door Framer was notified, and evaluated her at bedside. Recommended anesthesia for assistance with intubation, who also arrived. Caro rodriguez was called during this time to more closely monitor her cardiac status. She went into ventricular tachycardia but pulse remained steady. Two grams of calcium and two grams of Mag were pushed bedside. She was started on an amiodarone drip. When she was placed on the portable monitor, she was in sinus tachycardia with a pulse. She was less responsive and weak at this point and was clearly working to breathe. It was difficult to get a blood pressure initially during the episode and levophed was initially ordered, but not given. ENT was consulted for stat airway placement given the large neck mass. I spoke with her children at this point regarding the possibility of needing an emergency tracheostomy. I communicated to Sharath that we received permission for them to enter the hospital as a visitor if they wanted to come now. The patient was transferred to the ICU where Dr. Corrigan was able to place an endotracheal tube via laryngoscopy. On initial view of the airway, she was found to have significant mucous plugging with significant airway edema, likely a result of the mucous plugging. She was successfully intubated and will remain in the ICU for continued care. Updated her son by phone that we were able to intubate her orally. DO Antonino Review of Systems Review of Systems: Unobtainable due to endotracheal tube Physical Exam Physical Exam: CONSTITUTIONAL: thin, cachectic, vitals as above, generally ill-appearing, somnolent. EYES: unable to spontaneously open eyelid (CN III vs CN VII deficit?) ENT: large, malodorous, decaying tissue that has visible necrotic tissue and some vascularity to it on the right side of her face with extension down into her anterior neck and anterior chest wall. External right ear is involved and distorted. RESPIRATORY: diminished breath sounds at the bases, otherwise clear, no crackles, rales or wheezes, increased respiratory effort and stridor present. CARDIOVASCULAR: tachy rate, reg rhythm, S1 and 2 heard without murmurs, gallops or rubs, no JVD, no peripheral edema GASTROINTESTINAL: normal bowel sounds, soft, nontender, nondistended. MUSCULOSKELETAL: weak, deconditioned. SKIN: warm and dry, large head and neck tumors as above with extension down onto the anterior neck and chest. NEUROLOGIC: Able to awaken and speaks in a raspy voice that is like a forced whisper. Results & Data Results & Data ([facility]) Vital Signs (Past 12 Hours) Vital Signs Temp Pulse Pulse Resp BP Pulse Ox 09/04/19 07:22 36.9 C 112 H 20 123/89 96 09/04/19 07:19 111 H 09/04/19 02:20 109 H 09/03/19 23:50 37 C 118 H 16 137/90 96 Laboratory Results Short CBC 09/04/19 Range/Units 06:24 WBC 8.52 (4.8-10.8) K/uL Hgb 10.1 L (12.0-16.0) g/dL Hct 33.1 L (37-47) % Plt Count 237 (130-400) K/uL BMP 09/03/19 09/03/19 09/04/19 08:15 22:50 06:24 Sodium 134 L 137 138 Potassium 3.6 D 3.3 L 3.3 L Chloride 96 L 102 103 Carbon Dioxide 27 26 23 BUN 15 11 10 Creatinine 0.29 L 0.29 L 0.27 L Glucose 67 L 62 L 92 Calcium 10.1 9.8 9.8 Medications Administered Current Inpatient Medications Acetaminophen (Tylenol) 650 mg PO Q4H PRN PRN Reason: Pain or Fever Stop: 10/03/19 03:32 Artificial Tears (Artificial Tears) 1 drops OP QID HARSHAD Stop: 10/03/19 08:59 Last Admin: 09/04/19 08:21 Dose: Not Given Documented by: Ertapenem (Consult) 1 ea N/A UD PRN PRN Reason: Consult Stop: 10/03/19 04:04 Promethazine HCl 12.5 mg/ (Sodium Chloride) 50.5 mls @ 202 mls/hr IV Q6H PRN PRN Reason: Nausea And Vomiting Stop: 10/03/19 03:32 Magnesium Sulfate/Dextrose (Magnesium Sulfate / D5w) 1 gm in 100 mls @ 50 mls/hr IV Q2H HARSHAD Stop: 09/04/19 12:59 Potassium Chloride (K Duane / Wtr) 10 meq in 100 mls @ 100 mls/hr IV 0900 ONE Stop: 09/04/19 09:59 Lorazepam (Ativan) 0.5 mg in 1 mls @ 1 mls/min IV Q6H PRN PRN Reason: Anxiety Stop: 10/04/19 08:20 Ertapenem 1,000 mg/ Sodium (Chloride) 60 mls @ 100 mls/hr IV Q24H HARSHAD; Protocol Stop: 09/11/19 08:29 Last Admin: 09/04/19 08:36 Dose: 100 mls/hr Documented by: Vancomycin HCl 750 mg/ Sodium (Chloride) 265 mls @ 125 mls/hr IV Q10H HARSHAD Stop: 09/11/19 09:59 Levothyroxine Sodium 15 mcg/ (Syringe) 0.75 mls @ 2 mls/min IV DAILY@0900 [facility] Stop: 10/04/19 08:59 Ipratropium Joaquin (Atrovent 0.02% 0.5mg/2.5ml) 0.5 mg INH Q4H PRN PRN Reason: Shortness Of Breath Or Wheezing Stop: 10/03/19 03:32 Ketorolac Tromethamine (Toradol) 15 mg IV Q6H PRN PRN Reason: Pain Stop: 09/08/19 03:32 Last Admin: 09/03/19 04:48 Dose: 15 mg Documented by: Levalbuterol HCl (Xopenex 1.25mg/0.5ml Neb) 1.25 mg INH Q4H PRN PRN Reason: Shortness Of Breath Or Wheezing Stop: 10/03/19 03:32 Levothyroxine Sodium (Synthroid) 50 mcg PO DAILYBB [facility] Stop: 10/03/19 06:29 Last Admin: 09/04/19 05:05 Dose: Not Given Documented by: Lorazepam (Ativan) 1 mg PO TID [facility] Stop: 10/03/19 08:59 Last Admin: 09/04/19 08:21 Dose: Not Given Documented by: Miscellaneous Information (Consult) 1 ea N/A UD PRN PRN Reason: Consult Stop: 10/03/19 04:05 Morphine Sulfate (Morphine Sulfate) 4 mg IV Q4H PRN PRN Reason: Pain Stop: 09/17/19 03:32 Oxycodone HCl (Roxicodone Immediate Rel) 15 - 30 mg PO Q3H PRN PRN Reason: Pain Stop: 09/17/19 03:32 Pantoprazole Sodium (Protonix) 40 mg PO QAM [facility] Stop: 10/03/19 08:59 Last Admin: 09/04/19 08:21 Dose: Not Given Documented by:
[2019-09-04] MEDS ORDERED: POTASSIUM CHLORIDE / WTR 10 MEQ/100 ML PLCT IV ONE (09:00)
[2019-09-04] MEDS: LEVOTHYROXINE SODIUM IV SCH (09:14)
[2019-09-04] MEDS: LORazepam 0.5 MG/1 ML VIAL IV PRN ×2 (11:27→19:53)
[2019-09-04] MEDS ORDERED: 0.2 MICRON FILTER SET 1 EA IV ONE (11:52)
[2019-09-04] MEDS ORDERED: AMIODARONE IV BOLUS & DRIP IV STA (11:52)
[2019-09-04] MEDS ORDERED: STAT IV Infusion **Titration per Protocol STA ×2 (11:52→13:40)
[2019-09-04] MEDS ORDERED: AMIODARONE / D5W 150 MG/100 ML BAG IV STA (12:04)
[2019-09-04] MEDS ORDERED: AMIODARONE / D5W 360 MG/200 ML BAG IV ONE (12:15)
[2019-09-04] MEDS ORDERED: SODIUM CHLORIDE 0.9% 1000ML 1,000 ML IV ONE (12:23)
[2019-09-04] MEDS ORDERED: PHENYLEPHRINE HCL 10 MG/ML VIAL ONE (12:50)
[2019-09-04] MEDS ORDERED: LIDOCAINE HCL 2% (LOCAL) INJ 50 ML VIAL ONE (12:51)
--- NOTE | 2019-09-04 13:30 | ENT Consultation ---
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 Consultation for airway management was requested by Dr. Muñiz Allergies Allergy/AdvReac Type Severity Reaction Status Date / Time piperacillin [From Zosyn] Allergy Mild lip Verified 09/02/19 23:30 swelling tazobactam [From Zosyn] Allergy Mild lip Verified 09/02/19 23:30 swelling cefepime Allergy Rash Verified 09/02/19 23:30 omeprazole [From Prilosec] Allergy Rash Verified 09/02/19 23:30 prednisone Allergy Unknown Verified 09/02/19 23:30 Quinolones AdvReac Mild sick Verified 09/02/19 23:56 Home Medications Home Medications Medication Instructions Recorded Confirmed Type lorazepam [Ativan] 1 mg PO TID 08/15/18 09/02/19 History oxycodone 15 - 45 mg PO Q3H PRN 08/15/18 09/02/19 History pantoprazole 40 mg PO QAM 08/15/18 09/02/19 History albuterol sulfate 3 mg INHALATION Q4H PRN 08/16/18 09/02/19 History albuterol sulfate [Ventolin HFA] 2 puff INHALATION Q4H PRN 08/16/18 09/02/19 History magnesium oxide 400 mg PO BID #60 tab 08/18/18 09/02/19 Rx levothyroxine 50 mcg PO QAM 05/10/19 09/02/19 History ondansetron HCl 8 mg PO DIRECTED PRN 05/10/19 09/02/19 History acetaminophen [Tylenol Extra 1,000 mg PO Q8H PRN #60 tab 06/07/19 09/02/19 Rx Strength] carboxymethylcellulose sodium 1 drops OP QID #15 ml 06/07/19 09/02/19 Rx [Artificial Tears (cmc)] dexamethasone 1 mg PO BID 09/04/19 09/04/19 History Patient History Medical History Cancer of neck Cholelithiasis Facial swelling GERD (gastroesophageal reflux disease) Goals of care, counseling/discussion Head and neck cancer (Chronic) 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 Hypothyroidism Surgical History PEG (percutaneous endoscopic gastrostomy) status Removed Family History Other Cancer Heart disease Social History Preferred Language: Vietnamese Communication Ability: Effective Communication Ability Comment: cannot see out of 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 Beliefs That Will Affect Care: None marital status: Unknown Current Living Situation: Family Current Living Situation Comment: lives alone in high rise apartment Feels Safe at Home: Yes Safety Concerns: Feels Safe At This Time Smoking Status: Smoker, status unknown Hx Alcohol Use: No Hx Substance Use: No Physical Exam Constitutional: WD/WN, vitals as above Eyes: PERRL, conjunctivae normal, anicteric sclerae ENMT: Mucous plug in the trachea with right vocal cord paralysis and edema of the epiglottis and arytenoids Neck: + tracheal deviation (To the left) Large extensive mass from the right parotid below the right ear eroding through the neck into the retromandibular area with extension down the entire neck and across the midline of the neck to the anterior chest wall and to the left neck with large ulceration in the right retromandibular area close to the jugular and carotid Respiratory: + respiratory distress (Stridor) Cardiovascular: Rate/Rhythm: + tachycardic Results & Data ([facility]) Vital Signs (Past 12 Hours) Vital Signs Temp Pulse Pulse Resp BP BP Pulse Ox 09/04/19 12:30 109 H 100 09/04/19 12:23 112 H 108/79 87 L 09/04/19 11:13 36.5 C 113 H 20 123/86 95 09/04/19 07:22 36.9 C 112 H 20 123/89 96 09/04/19 07:19 111 H 09/04/19 02:20 109 H
--- NOTE | 2019-09-04 13:33 | Operative Report ---
Post Operative Report Pre & Post Diagnosis Operation Date: 09/04/19 12:15 Acute airway obstruction with right vocal cord paralysis and mucous plugging <No data on this case meets the specified criteria> I identified the patient and participated in the time-out.: Yes Procedure Operation Date: 09/04/19 Fiberoptic bronchoscopy with suctioning and intubation <No data on this case meets the specified criteria> Surgeon Dotty Corrigan MD Rn Progressive Care Dr. Muñiz Estimated Blood Loss 0 Findings Consistent with Post-Op Diagnosis Right vocal cord paralysis and mucous plug in the larynx Specimens none Anesthesia Type None Complications none Disposition Accompanied Patient To Recovery: Yes Disposition: Surgical ICU Indications Stridor Description of Procedure She was in the supine position in the intensive care unit. The bronchoscope was used to visualize the epiglottis vallecula and piriform sinus areas there was edema the epiglottis and arytenoids with mucous plugging endolarynx. The mucous plug was suctioned clean. The fiberoptic scope was placed through the endotracheal tube and then directed through the vocal cords into the trachea visualizing the michaela and then she was intubated over the fiberoptic scope. End-tidal volumes were noted and she was turned over to the intensive care unit and Dr. Muñiz for further care. I attest to the content of the Intraoperative Record and any orders documented therein. Any exceptions are noted below.
--- NOTE | 2019-09-04 14:17 | Procedure Note ---
Procedure Note Date of Service September 04, 2019 Procedure: Inserting ultrasound-guided central spline rolling machine job setter: Dr. Alejandra Gilliland Indication: Hypotension Consent: Emergent Anesthesia: 1% lidocaine without epinephrine local. Procedure: Appropriate imaging studies were reviewed prior to the procedure. Under aseptic and sterile condition, right femoral vein was accessed under direct ultrasound guidance. Guidewire was confirmed to be within the lumen of vein with the help of ultrasound. Catheter was introduced via Seldinger techn ique. Guide a wire was removed. Good non-pulsatile blood flow was appreciated from all the ports. The catheter was placed at 23 cm and sut[address] in place. BioPatch was applied to the catheter and a sterile Tegaderm dressing was applied over the catheter with careful attention to sterility. Patient tolerated the procedure well. Blood loss: Less than 2 cc Complications: None Coding CPT Codes Tubes, Drains, and Vasc Access - Tubes, Drains, and Vasc Access: [id number] Place catheter in vein superior or inferior vena cava ([id number]) Tubes, Drains, and Vasc Access - Tubes, Drains, and Vasc Access: [id number] Ultrasound Guidance For Vascular ([id number]) [facility] [place] Codes (Charges) Tubes, Drains, and Vasc Access Procedure 1: Tubes, Drains, and Vasc Access: [id number] Place catheter in vein superior or inferior vena cava Procedure 2: Tubes, Drains, and Vasc Access: [id number] Ultrasound Guidance For Vascular
--- NOTE | 2019-09-04 14:18 | Procedure Note ---
Procedure Note Date of Service September 04, 2019 ARTERIAL LINE PROCEDURE NOTE: Procedure: Arterial Line Placement Attending: Dr. Alejandra Gilliland MD Indication: Monitoring on Pressors Anesthesia: Local Lidocaine 1% Emergency consent was applied A time-out was completed verifying correct patient, procedure, site, positioning, and implant(s) or special equipment if applicable. Patients right groin was prepped and draped in the usual sterile fashion. Ultrasound guidance was used to aid needle placement. A 20g Arrow arterial line was introduced into the femoral artery. Catheter was threaded, and the needle was removed with appropriate pulsatile blood return. Good waveform was observed on the monitor. The patient tolerated the procedure well. Blood Loss: Minimal Complications: None Coding CPT Codes Tubes, Drains, and Vasc Access - Tubes, Drains, and Vasc Access: [id number] Place Catheter In Artery ([id number]) Tubes, Drains, and Vasc Access - Tubes, Drains, and Vasc Access: [id number] Ultrasound Guidance For Vascular ([id number]) [facility] [place] Procedure Codes (Charges) Tubes, Drains, and Vasc Access Procedure 3: Tubes, Drains, and Vasc Access: [id number] Place Catheter In Artery Procedure 4: Tubes, Drains, and Vasc Access: [id number] Ultrasound Guidance For Vascular
[2019-09-04] MEDS: NOREPINEPHRINE BIT INJ 8 MG in DEXTROSE 5% 500 ML IV SCH (14:20)
[2019-09-04 14:31] LABS: Basophils # (auto) 0.02 K/uL (0-0.2); Basophils % (auto) 0.2 %; Hematocrit (blood only) 28.3 % (37-47); Hemoglobin 8.9 g/dL (12.0-16.0); Immature Granulocytes # (auto) 0.35 K/uL (0.00-0.02); Immature Granulocytes % (auto) 2.8 %; Lymphocytes # (auto) 1.49 K/uL (1.2-3.4); Lymphocytes % (auto) 11.7 %; Mean Corpuscular Hemoglobin 28.9 pg (25-34); Mean Corpuscular Volume 91.9 fL (80-100); Mean Platelet Volume 10.2 fL (7.4-10.4); Monocytes # (auto) 0.77 K/uL (0.11-0.59); Monocytes % (auto) 6.1 %; Neutrophils # (auto) 10.07 K/uL (1.4-6.5); Neutrophils % (auto) 79.2 %; Platelet Count 303 K/uL (130-400); RDW Coefficient of Variation 16.8 % (11.5-14.5); RDW Standard Deviation 55.9 fL (36.4-46.3); Red Blood Count 3.08 M/uL (4.2-5.4)
--- NOTE | 2019-09-04 14:31 | Electrocardiogram Report ---
Test Reason : Blood Pressure : / mmHG Vent. Rate : 111 BPM Atrial Rate : 111 BPM P-R Int : 162 ms QRS Dur : 068 ms QT Int : 312 ms P-R-T Axes : 057 -36 064 degrees QTc Int : 424 ms Poor data quality, interpretation may be adversely affected Sinus tachycardia Left axis deviation Low voltage QRS Cannot rule out Anterior infarct , age undetermined Abnormal ECG When compared with ECG of 02-SEP-2019 20:12, T wave amplitude has decreased in Anterior leads Confirmed by Davin Palmer ([id number]) on 09/04/2019 2:31:41 PM Referred By: REFERRED SELF Confirmed By:Davin Palmer
[2019-09-04 14:32] LABS: Mean Corpuscular Hgb Conc 31.4 g/dL (32-36)
[2019-09-04 14:45] LABS: Albumin Globulin Ratio 0.6 (0.9-2); Albumin Level 1.7 gm/dl (3.4-5.0); BUN Creatinine Ratio 23.9 (10-20); Bilirubin,Total 0.4 mg/dl (0.2-1); Calcium 13.8 mg/dl (8.5-10.1); Creatinine Clr Calc Pharmacy 110.1 ml/min; Est GFR (African American) 130.1; Est GFR (Non-African American) 112.3; Globulin 2.8 gm/dl (2.5-4.0); Phosphorus 3.4 mg/dl (2.5-4.9); Potassium 3.2 mmol/L (3.5-5.1); Total Protein 4.5 gm/dl (6.4-8.2)
--- NOTE | 2019-09-04 14:47 | XRay Report ---
SINGLE VIEW CHEST CLINICAL HISTORY: Respiratory failure. Intubation. Metastatic disease. FINDINGS: 2 AP, portable, semierect chest radiographs are compared to chest x-ray and chest CT dated 09/02/2019. The examination is degraded by portable technique and patient rotation. An endotracheal tu be has been placed. The tip projects 2.3 cm above the michaela. The cardiomediastinal silhouette is unr emarkable. There are numerous pulmonary nodules. A 3 cm cavitary nodule in the right upper lobe and a 5.5 cm nodule inner fluid level the right lung base are similar to previous. No large pleural effusi on or pneumothorax is seen. The skeletal structures are osteopenic. The bony thorax is grossly intact . IMPRESSION: 1. An endotracheal tube has been placed as above. 2. Numerous pulmonary nodules, some of which demonstrate foci of cavitation and air-fluid levels are similar to previous. These were better assessed on the [address] 3. No large pleural effusion or pneumothorax is seen. ACT 112: Negative or not required by law. Electronically signed by: Devan Meade M.D. 09/04/2019 2:46 PM
[2019-09-04] MEDS: SODIUM CHLORIDE 0.9% 1000ML 1,000 ML IV SCH ×2 (15:49→23:53)
--- NOTE | 2019-09-04 16:06 | Critical Care Progress Note ---
Date of Service September 04, 2019 Assessment & Plan (1) Abnormal chest CT: CT chest without contrast 09/02/2019: Multiple pulmonary nodularities appreciated bilaterally which are present even on the previous CAT scan in May, there are cavitary lesion appreciated in the right upper lobe as well as right lower lobe which is new compared to the CAT scan done in June. Most of the nodularities are peripherally based abutting the pleura. There is some tree-in-bud opacities appreciated as well --Acute hypoxic respiratory failure Etiology not clear Could be obstruction from the mass, mucous plugging as patient has very poor gag likely from invasion of the tumor into the vagus nerve Plan will be to intubate the patient with ENT as she might end up with trach. --Cardio vascular shock Rule out infection Continue with broad-spectrum antibiotics Follow-up septic work-up Give at least 30 cc/kg of IV fluids and start the patient on vasopressors to keep map greater than 65 --Sustained V. 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 Patient has no fever, she does not even complain of any shortness of breath or cough. The chances of it being an infectious process is low. ESR: 38, CRP 11.7, procalcitonin 0.18 Autoimmune process especially EPGA could present this way but the patient's creatinine is totally normal which goes against it. Endocarditis giving septic emboli to the periphery of the lungs can present this way to but she had these nodules in May 2019 and patient having no murmur on physical examination goes against this differential. 2D echo to rule out any vegetations could be thought of. --Hypothyroidism Continue with Synthroid IV --NSTEMI Troponin already trending down Likely demand ischemia Monitor --Metastatic head and neck cancer On chronic Decadron p.o. On chronic oxycodone --Prophylaxis VTE: IPC's GI: Protonix Lines: Right femoral TLC, right femoral arterial Diet: N.p.o. Plan: Continue with pressor support. Follow-up septic work-up Continue with broad-spectrum antibiotics. Given the patient was on chronic Decadron will give dexamethasone 4 mg on a daily basis as the patient is in shock. Patient already got 4 mg of Decadron today. We will give fentanyl as needed for pain. Patient's hypercalcemia on the latest lab is likely because of calcium gluconate given while cold purple. Will give IV fluids and monitor. Prognosis is very grave. Recommend palliative care and ethics committee to be involved. I have personally spent 62 minutes of critical care time in the direct management of this patient. This is a life/limb threatening event. This includes time spent evaluating patient, direct bedside care, chart review, placing orders, interpretation of diagnostic studies, discussion with consultants, patient, and family members, as well as other required patient management activities. This time is exclusive of all separately billable procedures, and teaching time and separate from and in addition to any other critical care service time. Please note the above document was generated using voice recognition software. It may contain grammatical, syntax or spelling errors. (2) Head and neck cancer: Admission and Anticipated Discharge Date Admission Date: September 03, 2019 Subjective Was called to evaluate the patient bedside as she was having respiratory distress. Patient also had runs of sustained V. tach. Code purple was called, blood pressure was difficult to get. Dr. Muñiz was present. Recommended to give amiodarone 150 mg bolus, magnesium 2 g, calcium gluconate, give bolus normal saline and if this still the blood pressure does not, then start peripheral nor epi at 0.05 mcg Given the significant history of neck mass, anesthesia was requested to intubate the patient who requested ENT to be present. Finally the patient was intubated by ENT through flexible bronchoscopy. Review of Systems Review of Systems: Unobtainable due to cognitive status Physical Exam Physical Exam: Constitutional: In mild distress HEENT: Sluggish right pupil reflex, cataract bilateral, significant right-sided lateral mass which is oozing and necrotizing. It is extending towards the anterior part of her neck Respiratory system: Decreased air entry bilaterally, positive crackles bilateral lower lobes, no wheeze, no rhonchi CVS: S1-S2 positive, no murmurs or gallops Abdomen: Soft, nontender, nondistended, positive bowel sounds x4 Extremities: +2 pulses bilaterally radialis/ dorsalis pedis, no cyanosis, no edema Neuro: Somnolent Psych: Flat mood and affect G/U: No Sharp Skin: no rashes, warm and dry Lymphatic: no cervical or axillary lymphadenopathy Results & Data Results & Data ([facility]) Vital Signs (Past 12 Hours) Vital Signs Temp Pulse Pulse Resp BP BP Pulse Ox 09/04/19 15:00 90 114/69 09/04/19 14:54 95 H 100/67 09/04/19 14:50 94 H 88/67 L 100 09/04/19 14:45 94 H 75/60 L 87 L 09/04/19 14:39 87 94/72 L 100 09/04/19 14:34 89 91/71 L 100 09/04/19 14:30 99 H 98/64 L 99 09/04/19 14:24 100 H 104/78 100 09/04/19 14:19 99 H 106/90 100 09/04/19 14:14 100 H 116/87 100 09/04/19 14:09 98 H 116/80 99 09/04/19 14:04 92 H 105/86 95 09/04/19 13:59 98 H 106/80 94 09/04/19 13:54 91 H 95/70 L 96 09/04/19 13:49 95 H 100/62 95 09/04/19 13:44 96 H 93/68 L 94 09/04/19 13:39 95 H 102/70 95 09/04/19 13:34 99 H 100/73 96 09/04/19 13:29 101 H 84/64 L 99 09/04/19 13:24 105 H 77/55 L 100 09/04/19 13:19 106 H 75/58 L 100 09/04/19 13:18 106 H 79/49 L 100 09/04/19 13:16 104 H 72/60 L 100 09/04/19 13:10 107 H 16 100 09/04/19 13:01 119 H 112/81 09/04/19 12:46 120 H 117/83 09/04/19 12:30 109 H 100 09/04/19 12:23 112 H 108/79 87 L 09/04/19 11:13 36.5 C 113 H 20 123/86 95 09/04/19 07:22 36.9 C 112 H 20 123/89 96 09/04/19 07:19 111 H 09/04/19 12:11 09/04/19 12:11 Coding Level of Care Code Critical Care 1st 30-74 mins Diagnoses Abnormal chest CT R93.89 Head and neck cancer C76.0 Time Spent (min) 62
--- NOTE | 2019-09-04 17:03 | Procedure Note ---
Procedure Note Date of Service September 04, 2019 ARTERIAL LINE PROCEDURE NOTE: Procedure: Arterial Line Placement Attending: Dr. Alejandra Gilliland MD Indication: Monitoring on Pressors, right femoral arterial line not working. Anesthesia: Local Lidocaine 1% Emergency consent was applied. A time-out was completed verifying correct patient, procedure, site, positioning, and implant(s) or special equipment if applicable. Allens test was performed to ensure adequate perfusion. Patient has very feeble pulse Patients right wrist was prepped and draped in the usual sterile fashion. Ultrasound guidance was used to aid needle placement. A 20g Arrow arterial line was introduced into the right radial artery. Catheter was threaded, and the needle was removed with appropriate pulsatile blood return. Good waveform was observed on the monitor. The patient tolerated the procedure well. Blood Loss: Minimal Complications: None Coding CPT Codes Tubes, Drains, and Vasc Access - Tubes, Drains, and Vasc Access: [id number] Place Catheter In Artery ([id number]) Tubes, Drains, and Vasc Access - Tubes, Drains, and Vasc Access: [id number] Ultrasound Guidance For Vascular ([id number]) [facility] Procedure Codes (Charges) Tubes, Drains, and Vasc Access Procedure 5: Tubes, Drains, and Vasc Access: [id number] Place Catheter In Artery Procedure 4: Tubes, Drains, and Vasc Access: [id number] Ultrasound Guidance For Vascular
[2019-09-04] MEDS ORDERED: AMIODARONE / D5W 360 MG/200 ML BAG IV SCH (18:15)
[2019-09-04] MEDS: POTASSIUM CHLORIDE / WTR 20 MEQ/100 ML PLCT IV SCH ×3 (18:54→22:39)
[2019-09-04] MEDS ORDERED: MoRPHine SULFATE 2 MG/ML CARP IV PRN (19:55)
[2019-09-04] MEDS: AMIODARONE / D5W 360 MG/200 ML BAG IV SCH (20:03)
[2019-09-04] MEDS ORDERED: CALCIUM CHLORIDE 10% 10 ML SYR IV ONE (20:18)
[2019-09-04] MEDS ORDERED: MAGNESIUM SULFATE 1GM / D5W BAG IV ONE (20:18)
[2019-09-04] MEDS ORDERED: NOREPINEPHRINE BITARTRATE 1 MG/ML 4 ML VIAL IV ONE (20:18)
[2019-09-04] MEDS ORDERED: SODIUM CHLORIDE 0.9% 500 ML BAG IV ONE (20:18)
[2019-09-05] MEDS ORDERED: VANCOMYCIN TROUGH ONE ×2 (05:30→06:30)
[2019-09-05 05:40] LABS: Basophils # (auto) 0.01 K/uL (0-0.2); Basophils % (auto) 0.1 %; Hematocrit (blood only) 25.1 % (37-47); Immature Granulocytes % (auto) 2.9 %; Lymphocytes # (auto) 0.87 K/uL (1.2-3.4); Lymphocytes % (auto) 8.6 %; Mean Corpuscular Hemoglobin 28.5 pg (25-34); Mean Corpuscular Hgb Conc 31.9 g/dL (32-36); Mean Corpuscular Volume 89.3 fL (80-100); Mean Platelet Volume 9.5 fL (7.4-10.4); Monocytes # (auto) 1.06 K/uL (0.11-0.59); Monocytes % (auto) 10.4 %; Neutrophils # (auto) 7.93 K/uL (1.4-6.5); Platelet Count 242 K/uL (130-400); RDW Coefficient of Variation 16.7 % (11.5-14.5); RDW Standard Deviation 54.9 fL (36.4-46.3); Red Blood Count 2.81 M/uL (4.2-5.4); White Blood Count 10.17 K/uL (4.8-10.8)
[2019-09-05 05:56] LABS: iSTAT Arterial Blood Gas HCO3 20 meg/L (19-24); iSTAT Arterial Blood Gas pCO2 26 mmHg (35-46); iSTAT Arterial Blood Gas pH 7.49 (7.35-7.45); iSTAT Arterial Blood Gas pO2 201 mmHg (80-95); iSTAT Carbon Dioxide 21 mmol/L (24-31); iSTAT FiO2 6 %; iSTAT Site Art Line
[2019-09-05] MEDS: VANCOMYCIN HCL 750 MG in SODIUM CHLORIDE 0.9% 250 ML IV SCH ×2 (06:02→17:19)
[2019-09-05 06:08] LABS: BUN Creatinine Ratio 26.2 (10-20); Creatinine Clr Calc Pharmacy 136.8 ml/min; Est GFR (African American) 139.8; Est GFR (Non-African American) 120.6; Magnesium 1.5 mg/dl (1.8-2.4); Potassium 3.3 mmol/L (3.5-5.1)
[2019-09-05] MEDS ORDERED: POTASSIUM CHLORIDE / WTR 20 MEQ/100 ML PLCT IV SCH (06:13)
[2019-09-05 06:35] LABS: Phosphorus 1.1 mg/dl (2.5-4.9)
[2019-09-05] MEDS ORDERED: POTASSIUM PHOS 3 MMOL/1 ML INFUSION IV STA (06:44)
[2019-09-05] MEDS ORDERED: POTASSIUM PHOSPHATE 30 MMOL in SODIUM CHLORIDE 0.9% 500 ML IV ONE (07:00)
[2019-09-05] MEDS: SODIUM CHLORIDE 0.9% 1000ML 1,000 ML IV SCH (07:31)
--- NOTE | 2019-09-05 07:57 | XRay Report ---
XR chest 1V portable HISTORY: resp failure COMPARISON: Chest 09/04/2019. FINDINGS: Endotracheal tube terminates approximately 1.6 cm from the michaela. No pleural effusions. No pneumothorax. The heart is normal in size. Cavitary lesions seen within the right lung are again not ed. Dominant lesion within the right lower lobe measures 5.3 cm. IMPRESSION: 1. Endotracheal tube terminates proximal 1.6 cm from the michaela. 2. Right lung cavitary lesions are again noted. ACT 112: Negative or not required by law. Electronically signed by: Vinod Rodgers M.D. 09/05/2019 7:56 AM
[2019-09-05] MEDS: MAGNESIUM SULFATE / D5W 1 GM/100 ML BAG IV SCH ×3 (07:59→11:06)
[2019-09-05] MEDS: ERTAPENEM SODIUM 1,000 MG in SODIUM CHLORIDE 0.9% 50 ML IV SCH (08:04)
[2019-09-05] MEDS: LEVOTHYROXINE SODIUM IV SCH (08:04)
[2019-09-05] MEDS: AMIODARONE / D5W 360 MG/200 ML BAG IV SCH (08:15)
[2019-09-05] MEDS: ARTIFICIAL TEARS OP SCH ×3 (08:27→17:19)
[2019-09-05] MEDS ORDERED: dexAMETHasone 4 MG in SYRINGE 0 ML IV SCH (09:00)
[2019-09-05] MEDS ORDERED: PANTOprazole 40 MG in SYRINGE 0 ML IV SCH (11:00)
[2019-09-05] MEDS ORDERED: NORMOSOL-R 1,000 ML IV SCH (11:15)
[2019-09-05] MEDS ORDERED: ENOXAPARIN INJ 40 MG/0.4 ML SYR SQ SCH (12:00)
--- NOTE | 2019-09-05 12:09 | Electroencephalogram ---
EEG Procedure Note Date of Service September 05, 2019 Start / End Times Start Time: 10:50 End Time: 11:[address] Francisco Jaffe[[ert History A 58 year old woman with brain metastasis and altered mental status. EEG performed for evaluation of seizure. Home Medication List Home Medications Medication Instructions Recorded Confirmed Type lorazepam [Ativan] 1 mg PO TID 08/15/18 09/02/19 History oxycodone 15 - 45 mg PO Q3H PRN 08/15/18 09/02/19 History pantoprazole 40 mg PO QAM 08/15/18 09/02/19 History albuterol sulfate 3 mg INHALATION Q4H PRN 08/16/18 09/02/19 History albuterol sulfate [Ventolin HFA] 2 puff INHALATION Q4H PRN 08/16/18 09/02/19 History magnesium oxide 400 mg PO BID #60 tab 08/18/18 09/02/19 Rx levothyroxine 50 mcg PO QAM 05/10/19 09/02/19 History ondansetron HCl 8 mg PO DIRECTED PRN 05/10/19 09/02/19 History acetaminophen [Tylenol Extra 1,000 mg PO Q8H PRN #60 tab 06/07/19 09/02/19 Rx Strength] carboxymethylcellulose sodium 1 drops OP QID #15 ml 06/07/19 09/02/19 Rx [Artificial Tears ([facility])] dexamethasone 1 mg PO BID 09/04/19 09/04/19 History Inpatient Medication List Artificial Tears (Artificial Tears) 1 drops OP QID [facility] Stop: 10/03/19 08:59 Last Admin: 09/05/19 08:27 Dose: 1 drops Documented by: [id number] Admin: 09/04/19 21:15 Dose: 1 drops Documented by: [id number] Admin: 09/04/19 18:54 Dose: 1 drops Documented by: [id number] Admin: 09/04/19 14:20 Dose: 1 drops Documented by: [id number] Admin: 09/04/19 08:21 Dose: Not Given Documented by: [id number] Admin: 09/03/19 21:51 Dose: Not Given Documented by: [id number] Admin: 09/03/19 16:39 Dose: Not Given Documented by: [id number] Admin: 09/03/19 12:23 Dose: Not Given Documented by: [id number] Admin: 09/03/19 09:35 Dose: Not Given Documented by: [id number] Lorazepam (Ativan) 0.5 mg in 1 mls @ 1 mls/min IV Q6H PRN PRN Reason: Anxiety Stop: 10/04/19 08:20 Last Admin: 09/04/19 19:53 Dose: 1 mls/min Documented by: [id number] Admin: 09/04/19 11:27 Dose: 1 mls/min Documented by: [id number] Ertapenem 1,000 mg/ Sodium (Chloride) 60 mls @ 100 mls/hr IV Q24H [facility]SHAD; Protocol Stop: 09/11/19 08:29 Last Infusion: 09/05/19 08:40 Dose: 0 mls/hr Documented by: [id number] Admin: 09/05/19 08:04 Dose: 100 mls/hr Documented by: [id number] Infusion: 09/04/19 09:12 Dose: 0 mls/hr Documented by: [id number] Admin: 09/04/19 08:36 Dose: 100 mls/hr Documented by: [id number] Vancomycin HCl 750 mg/ Sodium (Chloride) 265 mls @ 125 mls/hr IV Q10H [facility] Stop: 09/11/19 09:59 Last Infusion: 09/05/19 08:10 Dose: 0 mls/hr Documented by: [id number] Admin: 09/05/19 06:02 Dose: 125 mls/hr Documented by: [id number] Infusion: 09/04/19 23:41 Dose: 0 mls/hr Documented by: [id number] Admin: 09/04/19 21:13 Dose: 125 mls/hr Documented by: [id number] Infusion: 09/04/19 11:23 Dose: 0 mls/hr Documented by: [id number] Admin: 09/04/19 09:15 Dose: 125 mls/hr Documented by: [id number] Levothyroxine Sodium 15 mcg/ (Syringe) 0.75 mls @ 2 mls/min IV DAILY@0900 [facility] Stop: 10/04/19 08:59 Last Admin: 09/05/19 08:04 Dose: 2 mls/min Documented by: [id number] Admin: 09/04/19 09:14 Dose: 2 mls/min Documented by: [id number] Norepinephrine Bitartrate 8 mg (/ Dextrose) 508 mls @ 18.825 mls/hr IV .Q24H HARSHAD; Protocol Stop: 10/04/19 13:59 Last Titration: 09/04/19 20:32 Dose: 0.09 mcg/kg/min, 18.8 mls/hr Documented by: [id number] Titration: 09/04/19 18:30 Dose: 0.07 mcg/kg/min, 14.6 mls/hr Documented by: [id number] Admin: 09/04/19 14:20 Dose: 0.05 mcg/kg/min, 10.5 mls/hr Documented by: [id number] Cosigned by: [id number] Amiodarone HCl/Dextrose (Nexterone / D5w) 360 mg in 200 mls @ 16.667 mls/hr IV .Q12H [facility] Stop: 10/04/19 20:29 Last Admin: 09/05/19 08:15 Dose: 0.5 mg/min, 16.7 mls/hr Documented by: [id number] Cosigned by: [id number] Infusion: 09/05/19 08:02 Dose: 0.5 mg/min, 16.7 mls/hr Documented by: [id number] Cosigned by: [id number] Admin: 09/04/19 20:03 Dose: 0.5 mg/min, 16.7 mls/hr Documented by: [id number] Cosigned by: [id number] Pantoprazole Sodium 40 mg/ (Syringe) 10 mls @ 5 mls/min IV DAILY@1100 [facility] Stop: 10/05/19 10:59 Last Admin: 09/05/19 11:06 Dose: 5 mls/min Documented by: [id number] Dexamethasone 4 mg/ Syringe 1 mls @ 1 mls/min IV Q24H [facility] Stop: 10/05/19 08:59 Last Admin: 09/05/19 08:26 Dose: 1 mls/min Documented by: [id number] Magnesium Sulfate/Dextrose (Magnesium Sulfate / D5w) 1 gm in 100 mls @ 50 mls/hr IV Q2H [facility] Stop: 09/05/19 12:12 Last Admin: 09/05/19 11:06 Dose: 50 mls/hr Documented by: [id number] Infusion: 09/05/19 11:06 Dose: 50 mls/hr Documented by: [id number] Admin: 09/05/19 10:01 Dose: 50 mls/hr Documented by: [id number] Infusion: 09/05/19 09:59 Dose: 50 mls/hr Documented by: [id number] Admin: 09/05/19 07:59 Dose: 50 mls/hr Documented by: [id number] Potassium Phosphate 30 mmol/ (Sodium Chloride) 510 mls @ 100 mls/hr IV ONE ONE Stop: 09/05/19 12:05 Last Admin: 09/05/19 07:29 Dose: 100 mls/hr Documented by: [id number] Parenteral Electrolytes (Normosol-R) 1,000 mls @ 80 mls/hr IV .[id number] [facility] Stop: 10/05/19 11:14 Last Admin: 09/05/19 11:07 Dose: 80 mls/hr Documented by: [id number] Ketorolac Tromethamine (Toradol) 15 mg IV Q6H PRN PRN Reason: Pain Stop: 09/08/19 03:32 Last Admin: 09/03/19 04:48 Dose: 15 mg Documented by: [id number] Discontinued Medications Amiodarone HCl (Cordarone Iv Bolus & Drip) 1 ea IV NOW STA; Protocol Stop: 09/04/19 11:53 Last Admin: 09/04/19 14:21 Dose: Not Given Documented by: [id number] Aspirin (Aspirin) 324 mg PO NOW STA Stop: 09/02/19 22:21 Last Admin: 09/02/19 22:46 Dose: 324 mg Documented by: [id number] Dexamethasone (Decadron) 4 mg IM NOW STA Stop: 09/04/19 01:17 Last Admin: 09/04/19 01:27 Dose: 4 mg Documented by: [id number] Enoxaparin Sodium (Lovenox 1 Mg/Kg Providers Use Dosing Set) 60 mg SC NOW STA Stop: 09/02/19 22:23 Last Admin: 09/02/19 22:55 Dose: Not Given Documented by: [id number] Levofloxacin/Dextrose (Levaquin/D5w) 750 mg in 150 mls @ 100 mls/hr IV Q24H [facility] Stop: 09/04/19 22:29 Last Admin: 09/02/19 22:52 Dose: Not Given Documented by: [id number] Ertapenem (Invanz) 10 mls @ 2 mls/min IV NOW STA Stop: 09/02/19 23:11 Last Admin: 09/03/19 01:13 Dose: 2 mls/min Documented by: [id number] Parenteral Electrolytes (Normosol-R) 1,000 mls @ 999 mls/hr IV .Q1H1M ONE Stop: 09/03/19 00:12 Last Infusion: 09/03/19 02:10 Dose: 0 mls/hr Documented by: [id number] Admin: 09/02/19 23:52 Dose: 100 mls/hr Documented by: [id number] Potassium Chloride (K Duane / Wtr) 10 meq in 100 mls @ 100 mls/hr IV Q1H [facility] Stop: 09/03/19 03:37 Last Infusion: 09/03/19 07:09 Dose: 0 mls/hr Documented by: [id number] Admin: 09/03/19 05:59 Dose: 100 mls/hr Documented by: [id number] Infusion: 09/03/19 05:59 Dose: 0 mls/hr Documented by: [id number] Infusion: 09/03/19 02:25 Dose: 0 mls/hr Documented by: [id number] Admin: 09/03/19 01:58 Dose: 100 mls/hr Documented by: [id number] Potassium Chloride 40 meq/ (Sodium Chloride) 1,020 mls @ 80 mls/hr IV .[id number] [facility] Stop: 10/03/19 01:44 Last Infusion: 09/04/19 01:03 Dose: 0 mls/hr Documented by: [id number] Infusion: 09/03/19 22:29 Dose: 0 mls/hr Documented by: [id number] Admin: 09/03/19 15:29 Dose: 80 mls/hr Documented by: [id number] Infusion: 09/03/19 15:29 Dose: 80 mls/hr Documented by: [id number] Infusion: 09/03/19 07:38 Dose: 80 mls/hr Documented by: [id number] Infusion: 09/03/19 06:02 Dose: 0 mls/hr Documented by: [id number] Admin: 09/03/19 02:29 Dose: 80 mls/hr Documented by: [id number] Magnesium Sulfate/Dextrose (Magnesium Sulfate / D5w) 1 gm in 100 mls @ 100 mls/hr IV ONE ONE Stop: 09/03/19 04:32 Last Infusion: 09/03/19 05:49 Dose: 0 mls/hr Documented by: [id number] Admin: 09/03/19 04:49 Dose: 100 mls/hr Documented by: [id number] Vancomycin HCl 1,250 mg/ (Sodium Chloride) 275 mls @ 125 mls/hr IV NOW STA Stop: 09/03/19 06:25 Last Infusion: 09/03/19 07:09 Dose: 0 mls/hr Documented by: [id number] Admin: 09/03/19 04:57 Dose: 125 mls/hr Documented by: [id number] Ertapenem 1,000 mg/ Sodium (Chloride) 60 mls @ 100 mls/hr IV Q24H [facility]SH[facility]; Protocol Stop: 09/09/19 21:59 Last Admin: 09/04/19 01:00 Dose: Not Given Documented by: [id number] Vancomycin HCl 750 mg/ Sodium (Chloride) 265 mls @ 125 mls/hr IV Q10H [facility] Stop: 09/10/19 14:59 Last Admin: 09/04/19 01:01 Dose: Not Given Documented by: [id number] Infusion: 09/03/19 17:37 Dose: 0 mls/hr Documented by: [id number] Admin: 09/03/19 15:29 Dose: 125 mls/hr Documented by: [id number] Potassium Chloride (K Duane / Wtr) 10 meq in 100 mls @ 100 mls/hr IV Q1H [facility] Stop: 09/04/19 02:32 Last Admin: 09/04/19 01:02 Dose: Not Given Documented by: [id number] Admin: 09/04/19 01:01 Dose: Not Given Documented by: [id number] Magnesium Sulfate/Dextrose (Magnesium Sulfate / D5w) 1 gm in 100 mls @ 100 mls/hr IV Q1H [facility] Stop: 09/04/19 02:32 Last Admin: 09/04/19 01:02 Dose: Not Given Documented by: [id number] Admin: 09/04/19 01:01 Dose: Not Given Documented by: [id number] Dexamethasone Sodium Phosphate (4 mg/ Syringe) 1 mls @ 1 mls/min IV NOW STA Stop: 09/04/19 00:45 Last Admin: 09/04/19 01:03 Dose: Not Given Documented by: [id number] Potassium Chloride (K Du[place] / Wtr) 10 meq in 100 mls @ 100 mls/hr IV Q1H [facility] Stop: 09/04/19 09:59 Last Admin: 09/04/19 08:22 Dose: Not Given Documented by: [id number] Admin: 09/04/19 08:21 Dose: Not Given Documented by: [id number] Magnesium Sulfate/Dextrose (Magnesium Sulfate / D5w) 1 gm in 100 mls @ 50 mls/hr IV Q2H [facility] Stop: 09/04/19 11:59 Last Admin: 09/04/19 08:23 Dose: Not Given Documented by: [id number] Admin: 09/04/19 08:21 Dose: Not Given Documented by: [id number] Magnesium Sulfate/Dextrose (Magnesium Sulfate / D5w) 1 gm in 100 mls @ 50 mls/hr IV Q2H [facility] Stop: 09/04/19 12:59 Last Infusion: 09/04/19 13:48 Dose: 0 mls/hr Documented by: [id number] Admin: 09/04/19 11:03 Dose: 50 mls/hr Documented by: [id number] Infusion: 09/04/19 11:03 Dose: 50 mls/hr Documented by: [id number] Admin: 09/04/19 09:22 Dose: 50 mls/hr Documented by: [id number] Potassium Chloride (K Du[place] / Wtr) 10 meq in 100 mls @ 100 mls/hr IV 0900 ONE Stop: 09/04/19 09:59 Last Infusion: 09/04/19 12:08 Dose: 0 mls/hr Documented by: [id number] Admin: 09/04/19 11:08 Dose: 100 mls/hr Documented by: [id number] Amiodarone HCl/Dextrose (Nexterone / D5w) 150 mg in 100 mls @ 600 mls/hr IV 1204 STA Stop: 09/04/19 12:13 Last Infusion: 09/04/19 14:51 Dose: 0 mls/hr Documented by: [id number] Cosigned by: [id number] Admin: 09/04/19 14:19 Dose: 600 mls/hr Documented by: [id number] Cosigned by: [id number] Amiodarone HCl/Dextrose (Nexterone / D5w) 360 mg in 200 mls @ 33.333 mls/hr IV 1215 ONE Stop: 09/04/19 18:14 Last Infusion: 09/04/19 22:33 Dose: 0 mls/hr Documented by: [id number] Cosigned by: [id number] Admin: 09/04/19 14:33 Dose: 33.3 mls/hr Documented by: [id number] Cosigned by: [id number] Sodium Chloride (Nss 1000ml) 1,000 mls @ 999 mls/hr IV .Q1H1M ONE Stop: 09/04/19 13:23 Last Infusion: 09/04/19 14:52 Dose: 0 mls/hr Documented by: [id number] Admin: 09/04/19 13:30 Dose: 999 mls/hr Documented by: [id number] Sodium Chloride (Nss 1000ml) 1,000 mls @ 125 mls/hr IV .Q8H [facility] Stop: 10/04/19 15:14 Last Admin: 09/05/19 07:31 Dose: 125 mls/hr Documented by: [id number] Infusion: 09/05/19 07:31 Dose: 125 mls/hr Documented by: [id number] Admin: 09/04/19 23:53 Dose: 125 mls/hr Documented by: [id number] Infusion: 09/04/19 23:49 Dose: 125 mls/hr Documented by: [id number] Admin: 09/04/19 15:49 Dose: 125 mls/hr Documented by: [id number] Potassium Chloride (K Duane / Wtr) 20 meq in 100 mls @ 50 mls/hr IV Q2H [facility] Stop: 09/04/19 23:29 Last Infusion: 09/05/19 00:42 Dose: 0 mls/hr Documented by: [id number] Admin: 09/04/19 22:39 Dose: 50 mls/hr Documented by: [id number] Infusion: 09/04/19 22:39 Dose: 50 mls/hr Documented by: [id number] Admin: 09/04/19 20:54 Dose: 50 mls/hr Documented by: [id number] Infusion: 09/04/19 20:54 Dose: 50 mls/hr Documented by: [id number] Admin: 09/04/19 18:54 Dose: 50 mls/hr Documented by: [id number] Potassium Chloride (K Duane / Wtr) 20 meq in 100 mls @ 50 mls/hr IV Q2H [facility] Stop: 09/05/19 10:12 Last Admin: 09/05/19 06:46 Dose: Not Given Documented by: [id number] Levothyroxine Sodium (Synthroid) 50 mcg PO DAILYBB [facility] Stop: 10/03/19 06:29 Last Admin: 09/04/19 05:05 Dose: Not Given Documented by: [id number] Admin: 09/03/19 07:09 Dose: Not Given Documented by: [id number] Lidocaine HCl (Xylocaine 2% Preserved) Confirm Administered Dose 50 ml .ROUTE .STK-MED [facility] Stop: 09/04/19 12:52 Last Admin: 09/04/19 14:21 Dose: Not Given Documented by: [id number] Lorazepam (Ativan) 0.5 mg PO NOW [facility] Stop: 09/03/19 01:30 Last Admin: 09/03/19 01:57 Dose: 0.5 mg Documented by: [id number] Lorazepam (Ativan) 1 mg PO TID [facility] Stop: 10/03/19 08:59 Last Admin: 09/04/19 08:21 Dose: Not Given Documented by: [id number] Admin: 09/03/19 21:50 Dose: Not Given Documented by: [id number] Admin: 09/03/19 13:34 Dose: Not Given Documented by: [id number] Admin: 09/03/19 08:32 Dose: Not Given Documented by: [id number] Miscellaneous (Patient's Height And/Or Weight Needed) 1 ea N/A NOW [facility] Stop: 09/02/19 22:46 Last Admin: 09/02/19 23:04 Dose: Not Given Documented by: [id number] Morphine Sulfate (Morphine Sulfate) 4 mg IV Q4H PRN PRN Reason: Pain Stop: 09/17/19 03:32 Last Admin: 09/03/19 05:59 Dose: 4 mg Documented by: [id number] Pantoprazole Sodium (Protonix) 40 mg PO QAM [facility] Stop: 10/03/19 08:59 Last Admin: 09/04/19 08:21 Dose: Not Given Documented by: [id number] Admin: 09/03/19 08:32 Dose: Not Given Documented by: [id number] Phenylephrine HCl (Mal-Synephrine) Confirm Administered Dose 10 mg .ROUTE .STK- MED [facility] Stop: 09/04/19 12:51 Last Admin: 09/04/19 14:21 Dose: Not Given Documented by: [id number] Potassium Chloride (Klor-Con M20) 40 meq PO NOW [facility] Stop: 09/02/19 23:11 Last Admin: 09/02/19 23:36 Dose: Not Given Documented by: [id number] Description This is a 21 electrode EEG with a single channel dedicated to limited EKG. The electrodes were placed in accordance with the International 10-20 system. Report: At the onset of the EEG the patient is in an altered mental state. The background is asymmetric with predominantly 3-5 Hz delta activity with focal suppression on the right maximal in the right temporal region. There is some intermixed superimposed faster frequencies at times. Photic stimulation does not induce any additional abnormalities. No stage II sleep transients are noted. Impression: This is an abnormal routine EEG in a patient with altered mentation due to 1. Focal slowing on the right maximal in the right temporal head region suggestive of an underlying structural abnormality, 2. Diffuse background slowing suggestive of a moderate to severe encephalopathy. No epileptiform discharges or electrographic seizures are recorded.
--- NOTE | 2019-09-05 13:16 | Pharmacy Report ---
Pharmacy Abx Dose Short Note - Date of Service September 05, 2019 - Assessment & Plan Assessment * 58 year old F receiving VANCOMYCIN + ERTAPENEM for treatment of pneumonia with cavitary lesion, possible septic shock * Day # 3 of antimicrobial therapy * Patient remains on norepi at this time with MAPs > 65 * Encephalopathy continues, remains on vent * No growth in blood cx at this time * MRSA nasal swab negative, lessening likelihood of MRSA pneumonia * afebrile, non-tachycardic * procal 0.18 on 09/02 * Renal fxn stable. SCr 0.27-0.33, UOP ~0.42mL/kg/hr Plan Vancomycin * Trough level of 15.1mcg/mL is therapeutic. Level was drawn at the appropriate time. Prior doses hung mostly on schedule. * Continue dose of 750 mg (~13.7mg/kg) IV every 10 hours * Goal trough level for sepsis, pulm infxn : 15 to 20 mcg/mL * Will recheck trough tomorrow to confirm drug accumulation is not occurring Ertapenem * eCrCl > 30cc/min, continue 1gm IV Q 24 hrs. Pharmacy will continue to follow and will adjust dose/frequency as necessary. Thank you.
[2019-09-05 14:25] LABS: BUN Creatinine Ratio 19.7 (10-20); Blood Urea Nitrogen 5 mg/dl (7-18); Calcium 8.1 mg/dl (8.5-10.1); Carbon Dioxide 17 mmol/L (21-32); Chloride 106 mmol/L (98-107); Creatinine Clr Calc Pharmacy 195.8 ml/min; Est GFR (African American) > 150.0; Est GFR (Non-African American) 132.1; Glucose 184 mg/dl (70-99); Magnesium 2.4 mg/dl (1.8-2.4); Potassium 3.2 mmol/L (3.5-5.1); Sodium 136 mmol/L (136-145)
[2019-09-05 14:48] LABS: Phosphorus 3.1 mg/dl (2.5-4.9)
[2019-09-05] MEDS: NOREPINEPHRINE BIT INJ 8 MG in DEXTROSE 5% 500 ML IV SCH (14:55)
--- NOTE | 2019-09-05 16:31 | Critical Care Progress Note ---
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 CV: Reported ventricular tachycardia -Amiodarone -Currently normal sinus rhythm Elevated troponins -Likely secondary to tachycardia Fluids/Renal: Maintenance fluids: Normosol 80 ID: Broad-spectrum antibiotics: Ertapenem and vancomycin -Concern for possible septic shock with initial tachycardia -I believe this was all driven by hypoxia GI/Nutrition: OG placed Heme: Squamous cell carcinoma: Advanced -Family reports had chem chemotherapy previously 5 years ago -Previously on Keytruda however developed pneumonitis -Family would like patient on Keytruda and additional anti-chemotherapy agents while utilizing high-dose vitamin C per their research -Previously met with palliative care desired to be full code and continue aggressive treatment -We do not have capabilities to provide cancer therapeutics family desires -Tracheostomy declined by patient and family and additionally technically difficult given tumor burden -Multiple providers have encouraged discussions with palliative care -Currently mass is erosive: Wound care following -I believe the patient is in an end stage medical condition without chance of meaningful recovery given extensive tumor burden, metastases and impact in airway and likely at risk to erode into carotid, right internal jugu lar vein has been occluded on CT scan from May 2019 DVT prophylaxis: Lovenox Endocrine: ICU hyperglycemia protocol -Continued 4 mg Decadron Vascular access: Arterial line: Radial, right femoral line secondary to lack of adequate access points secondary to cancer Code Status: Full code Disposition: Transfer to tertiary care facility I had a discussion with the patient's son neck who is listed as a power of trademark attorney. I also reviewed the palliative care notes, patient is extremely afraid of end of life. Neck reported she never wanted tracheostomy and declined this 5 years ago and would continue to do so. I have continued broad-spectrum antibiotics as cultures are pending. I am not completely convinced this is infectious in origin however the possibility exists for infection related to necrotic centers of cancerous masses which would be very difficult to achieve source control. There is significant disruption of skin and erosion into tissues, honestly I would be concerned for erosion into her carotid artery. I do not believe the the patient would even be deemed a candidate for a trial of palliative chemotherapy and radiation therapy would probably be precluded as tory andrade Family desires to continue active treatment therefore I feel she is best served at a tertiary care center. She has been accepted by at [facility] and will be transferred once ambulance services available at 7 PM this evening. (2) Multiple tracheobronchial mucus plugs: (3) Paralysis of right vocal cord: (4) Abnormal chest CT: (5) Facial swelling: Admission and Anticipated Discharge Date Admission Date: September 03, 2019 Subjective No overnight events, patient is intubated, last sedatives occurred on overnight. Review of Systems Review of Systems: Unobtainable due to endotracheal tube Physical Exam Physical Exam: General: Somnolent, localizes to noxious stimuli Skin: Necrotizing fungating mass of right head neck with firm nodules Head: Pupils equal and round Ears, nose, mouth and throat: airway obscured by endotracheal tube Cardiovascular: Normal peripheral perfusion Respiratory: no respiratory distress Gastrointestinal: Non distended Musculoskeletal: No deformity Results & Data Results & Data ([facility]) Vital Signs (Past 12 Hours) Vital Signs Temp Pulse Resp BP Pulse Ox 09/05/19 16:00 74 09/05/19 15:42 72 90/67 L 92 09/05/19 15:00 72 100 09/05/19 14:00 73 100 09/05/19 13:00 74 100 09/05/19 12:00 73 100 09/05/19 11:48 100 H 12 09/05/19 10:00 77 90/67 L 100 09/05/19 08:00 37 C 80 114/85 100 09/05/19 06:53 81 16 100 09/05/19 05:20 84 16 100 Coding Level of Care Code Critical Care 1st 30-74 mins Diagnoses Head and neck cancer C76.0 Multiple tracheobronchial mucus plugs J98.09 Paralysis of right vocal cord J38.[address] R93.89 Facial swelling R22.0 Time Spent (min) 90 Comment I have personally spent 90 minutes of critical care time in the direct management of this patient. This is a life/limb threatening event. This includes time spent evaluating patient, direct bedside care, chart review, placing orders, interpretation of diagnostic studies, discussion with consultants, patient, and/or family members regarding treatment decisions, as well as other required patient management activities. This time is exclusive of all separately billable procedures, and teaching time and separate from and in addition to any other critical care service time.
--- NOTE | 2019-09-05 19:38 | Discharge Summary ---
Date of Service September 05, 2019 Admission HPI Per Admitting Provider History obtained from patient, family, and records. History somewhat limited from patient due to weakness. 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 Last confinement May 2019 facial swelling/possible cellulitis of external neck mass status post antibiotic Rx. Patient seen by Radiation Oncology and Palliative care services during confinement. Additional radiation therapy felt to be more risky as per consultation note. Palliative care/hospice also recommended by radiation oncologist - same as other academic tertiary care cancer centers that had seen patient in the past. Patient stated that she "was not yet ready to " as per palliative care note. Following discharge, patient saw a [facility] oncologist who eventually recommended hospice after adverse reaction to new chemotherapy agent. Patient family currently investigating high-dose IV Vitamin C therapy for patient's progressive cancer. Last 3 days, patient noted to be not eating as well as per family. Patient noted to have junky cough symptoms. Family worried about aspiration. No COVID 19 exposure as family has been doing self quarantine the last few months as per son. Usual achy headache symptoms. Patient family noted progression of right droopy eyelid symptoms bad enough that patient has to hold up her right upper eyelid to see. Right neck tumor progressively enlarging with intermittent bleeding at home. Patient had achy substernal chest pain nonradiating with some shortness of cecilia th associated with cough symptoms. No fever, no chills. At the ER, troponin noted to be elevated. Aspirin given for possible ACS. Medical History as above Surgical History : PEG tube placement/removal Family History : heart disease Personal/Social history : Past tobacco abuse, no EtOH intake, retired from sales work, 2 sons currently staying with patient at home Admission Exam Per Admitting Provider GENERAL: uncomfortable, no respiratory distress, chronically ill, wane SKIN: Pallor, warm HEENT: Pale palpebral conjunctivae, R ptosis, facial asymmetry, limited mouth opening, dry buccal mucosa NECK : Tender fungating right cervical/submandibular mass with bleeding areas extending to right face CHEST : Decreased breath sounds , no tenderness HEART : Tachycardic , no obvious murmurs ABDOMEN: Some distention, nontender EXTREMITIES : No LE swelling, no LE tenderness, no other conspicuous deformities noted NEUROLOGIC : Coherent, ptosis right, facial asymmetry, gait and stance not assessed Principal Diagnosis Head and neck cancer-stage IV and progressive/invasive. Acute respiratory failure Sustained ventricular tachycardia Shock Acute metabolic encephalopathy Pneumonia Elevated troponin Weakness Discharge Exam CONSTITUTIONAL: thin, cachectic, intubated, unresponsive. EYES: eyes closed ENT: large, malodorous, decaying tissue that has visible necrotic tissue and some vascularity to it on the right side of her face with extension down into her anterior neck and anterior chest wall. External right ear is involved and distorted. RESPIRATORY: diminished breath sounds at the bases, otherwise clear, no crackles, rales or wheezes. CARDIOVASCULAR: reg rate, reg rhythm, S1 and 2 heard without murmurs, gallops or rubs, no JVD, no peripheral edema GASTROINTESTINAL: normal bowel sounds, soft, nontender, nondistended. MUSCULOSKELETAL: weak, deconditioned. SKIN: warm and dry, large head and neck tumors as above with extension down onto the anterior neck and chest. NEUROLOGIC: intubated and sedated. Discharge Data Allergies Allergy/AdvReac Type Severity Reaction Status Date / Time piperacillin [From Zosyn] Allergy Mild lip Verified 09/02/19 23:30 swelling tazobactam [From Zosyn] Allergy Mild lip Verified 09/02/19 23:30 swelling cefepime Allergy Rash Verified 09/02/19 23:30 omeprazole [From Prilosec] Allergy Rash Verified 09/02/19 23:30 prednisone Allergy Unknown Verified 09/02/19 23:30 Quinolones AdvReac Mild sick Verified 09/02/19 23:56 Consultations 09/03/19 03:33 Consult Case Management - Discharge Planning Routine Consult Pulmonology Routine 09/03/19 17:58 Consult Wound Care Provider Routine 09/04/19 12:23 Consult Anesthesiology Stat Consult Design Specialist Stat Consult Physician Stat 09/05/19 17:24 Burn CD for patient Stat Procedures Performed Operation Date: 09/04/19 12:15 <No data on this case meets the specified criteria> Ordered Studies 09/02/19 21:02 CT chest wo con Stat 09/03/19 00:54 CT head/brain wo con Urgent 09/04/19 13:25 US point of care ultrasound Urgent Hospital Course (1) Acute respiratory failure: (2) Sustained ventricular tachycardia: (3) Shock: (4) Acute metabolic encephalopathy: (5) Pneumonia: (6) Elevated troponin: (7) Weakness: (8) Head and neck cancer: 58-year-old female with progressive metastatic head neck cancer status post chemoradiation and immunotherapy since 2014 presented to the hospital with apathy to food, productive cough and weakness. There was concern for aspiration pneumonia. The patient reported being bedbound for the past 4 weeks and has had an inability to open her eyes spontaneously recently, also. She was admitted to the hospitalist service and started on vancomycin and ertapenem for possible pneumonia. Pulmonology was consulted. Speech pathology was ordered for swallow evaluation and she was placed on aspiration precautions. A chest CT without IV contrast revealed overall marked progression of multifocal metastatic disease as compared to CT performed in May 2019. There was extensive progression of soft tissue metastatic disease was seen in the anterior lower neck and chest wall, axillary adenopathy, mediastinal adenopathy and cervical adenopathy. Two new irregular foci of masslike consolidation in the right upper and right lower lobes were also seen. The lesion in the superior segment of the right lower lobe demonstrated internal cavitation thought to be consistent with necrotic metastatic disease. Superimposed infectious process such as necrotic pneumonia or septic emboli was also entertained, although considered less likely. A head CT was performed with worsening ptosis and found mass extension into the right temporal fossa and possibly the right temporal lobe of the brain. Also noted was erosive change in the right temporal fossa, right temporal lobe as well as the right mastoid, sphenoid sinus and other destructive bony changes. On hospital day 2 she reported feeling better but declined speech evaluation, echocardiogram, vital signs and other treatments. On hospital day 3 she developed stridor and increased respiratory distress. Oxygen saturation stayed above 90% on room air however she required emergency intubation. ENT was emergently consulted and came in to perform a placement of the endotracheal tube via a bronchoscopy procedure. Around this time she had gone into sustained ventricular tachycardia and was sent to the ICU and placed on amiodarone infusion. She never lost her pulse and spontaneously converted back to sinus tachycardia prior to any intervention. She became hypotensive and was started on norepinephrine. The laryngoscope was used to visualize the epiglottis vallecula and piriform sinus areas and there was edema of the epiglottis and arytenoids with mucous plugging in the endolarynx. The mucous plug was suctioned out and the fiberoptic scope was placed through the endotracheal tube and then directed through the vocal cords into the trachea visualizing the michaela; she was intubated over the fiberoptic scope. End-tidal volumes were noted and she was placed on the ventilator for continued support. An ultrasound-guided central line was placed. An arterial line was placed. Her acute hypoxic respiratory failure was likely secondary to a combination of factors including mucous plugging causing edema and airway swelling along with a mass-effect from the neck tumor possibly invading the vagus nerve resulting in paralysis of the right side of the airway as seen on laryngoscopy. An EEG was performed revealing focal slowing on the right maximal in the right temporal head region suggestive of an underlying structural abnormality. Diffuse background slowing was present suggestive of a moderate to severe encephalopathy. No epileptiform discharges or electrographic seizures were recorded. The patient has two sons who desired minimizing sedatives and entertaining oncologic alternatives to treat her very end-stage cancer. She was previously on Keytruda, however, developed pneumonitis. Her son was interested in additional investigative immunotherapies and anti-angiogenesis inhibitors and other treatments currently unavailable at this facility. Therefore, the decision was made to transition her to a tertiary care facility. She was transferred in critical condition to [facility] in [place]. 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 She also utilizes narcotics regularly, as well as takes regular benzodiazepine, and therefore is at high risk for withdrawal of these substances. Blood cultures were negative at time of discharge. Her white blood cell count was 10, H&H was 8/25, platelets were 242. She had persistent hypokalemia with a potassium of 3.2 and was acidotic with a bicarb of 17 on blood chemistry. Renal function was normal and lactate was 1.6. Phosphorus was replaced and was 3.1 at time of discharge and mag was replaced and was 2.4 at time of discharge. She had been without any food or nutrition since admission, a total of three days. Close primary care follow-up was recommended if the patient survives this hospitalization. She has a very grim prognosis. Current Inpatient Medications Acetaminophen (Tylenol) 650 mg PO Q4H PRN PRN Reason: Pain or Fever Stop: 10/03/19 03:32 Artificial Tears (Artificial Tears) 1 drops OP QID HARSHAD Stop: 10/03/19 08:59 Last Admin: 09/05/19 17:19 Dose: 1 drops Documented by: Enoxaparin Sodium (Lovenox) 40 mg SQ Q24H HARSHAD Stop: 10/05/19 11:59 Last Admin: 09/05/19 12:30 Dose: 40 mg Documented by: Ertapenem (Consult) 1 ea N/A UD PRN PRN Reason: Consult Stop: 10/03/19 04:04 Promethazine HCl 12.5 mg/ (Sodium Chloride) 50.5 mls @ 202 mls/hr IV Q6H PRN PRN Reason: Nausea And Vomiting Stop: 10/03/19 03:32 Lorazepam (Ativan) 0.5 mg in 1 mls @ 1 mls/min IV Q6H PRN PRN Reason: Anxiety Stop: 10/04/19 08:20 Last Admin: 09/04/19 19:53 Dose: 1 mls/min Documented by: Ertapenem 1,000 mg/ Sodium (Chloride) 60 mls @ 100 mls/hr IV Q24H [facility]; Protocol Stop: 09/11/19 08:29 Last Infusion: 09/05/19 08:40 Dose: Infused Documented by: Vancomycin HCl 750 mg/ Sodium (Chloride) 265 mls @ 125 mls/hr IV Q10H HARSHAD Stop: 09/11/19 09:59 Last Admin: 09/05/19 17:19 Dose: 125 mls/hr Documented by: Levothyroxine Sodium 15 mcg/ (Syringe) 0.75 mls @ 2 mls/min IV DAILY@0900 [facility] Stop: 10/04/19 08:59 Last Admin: 09/05/19 08:04 Dose: 2 mls/min Documented by: Norepinephrine Bitartrate 8 mg (/ Dextrose) 508 mls @ 31.375 mls/hr IV .[id number] [facility]; Protocol Stop: 10/04/19 13:59 Last Titration: 09/05/19 19:23 Dose: 0.15 mcg/kg/min, 31.4 mls/hr Documented by: Amiodarone HCl/Dextrose (Nexterone / D5w) 360 mg in 200 mls @ 16.667 mls/hr IV .Q12H HARSHAD Stop: 10/04/19 20:29 Last Admin: 09/05/19 08:15 Dose: 0.5 mg/min, 16.7 mls/hr Documented by: Pantoprazole Sodium 40 mg/ (Syringe) 10 mls @ 5 mls/min IV DAILY@1100 [facility] Stop: 10/05/19 10:59 Last Admin: 09/05/19 11:06 Dose: 5 mls/min Documented by: Dexamethasone 4 mg/ Syringe 1 mls @ 1 mls/min IV Q24H [facility] Stop: 10/05/19 08:59 Last Admin: 09/05/19 08:26 Dose: 1 mls/min Documented by: Parenteral Electrolytes (Normosol-R) 1,000 mls @ 80 mls/hr IV .[id number] [facility] Stop: 10/05/19 11:14 Last Admin: 09/05/19 11:07 Dose: 80 mls/hr Documented by: Ipratropium [place] (Atrovent 0.02% 0.5mg/2.5ml) 0.5 mg INH Q4H PRN PRN Reason: Shortness Of Breath Or Wheezing Stop: 10/03/19 03:32 Ketorolac Tromethamine (Toradol) 15 mg IV Q6H PRN PRN Reason: Pain Stop: 09/08/19 03:32 Last Admin: 09/03/19 04:48 Dose: 15 mg Documented by: Levalbuterol HCl (Xopenex 1.25mg/0.5ml Neb) 1.25 mg INH Q4H PRN PRN Reason: Shortness Of Breath Or Wheezing Stop: 10/03/19 03:32 Miscellaneous Information (Consult) 1 ea N/A UD PRN PRN Reason: Consult Stop: 10/03/19 04:05 Morphine Sulfate (Morphine Sulfate) 2 mg IV Q2H PRN PRN Reason: Pain Stop: 09/18/19 19:54 Oxycodone HCl (Roxicodone Immediate Rel) 15 - 30 mg PO Q3H PRN PRN Reason: Pain Stop: 09/17/19 03:32 Total Time Total Time Spent Total Time Spent (In Minutes): 60 Total Time Includes: Examination of the Patient, Discharge Planning, Medication Reconciliation and Communication With Other Providers Discharge Plan Discharge Items Patient Disposition: Transfer Acute Care Hospital Reason For Visit: PNEUMONIA, TROPONIN ELEV Discharge Diagnosis: Head and neck cancer-stage IV and progressive/invasive. Acute respiratory failure Sustained ventricular tachycardia Shock Acute metabolic encephalopathy Pneumonia Elevated troponin Weakness Condition on Discharge: Critical Activity: Resume your previous activity Non-emergency contact: Primary Care Provider Call non-emergency contact if: you have any medication questions, your symptoms worsen, your pain is not controlled, your pain is worsening, your pain is unusual for you, your pain is concerning for you and you have a fever Follow-up/Referrals: Edward Sanchez, ACNP-BC [Primary Care Provider] - Diet: Regular Addtl Attending Provider Instructions: You are being transferred to [facility] for further treatment of your medical conditions. It is recommended that you follow-up with your primary care physician within one week of discharge from the hospital. It was a pleasure taking care of you! Please call if you have any questions or problems. You can reach a [facility] hospitalist on duty at [facility] 24 hours a day by calling [phone]. Take care of yourself. Carina Muñiz, DO [facility] Pending Studies at Discharge: Yes Stand-Alone Forms: My [facility] Skilled Items Patient informed of condition?: Yes DNR: No Discharge Level of Care: Other Communicable Disease: No Discharge Prognosis: Deteriorating Lines: US Guided Peripheral IV Urinary Catheter: Yes Medications and DC Order Prescriptions: Continued oxycodone 15 mg Tablet 15 - 45 mg PO Q3H PRN (Reason: Pain) RF: 0 lorazepam [Ativan] 1 mg Tablet 1 mg PO TID RF: 0 pantoprazole 40 mg tablet,delayed release (DR/EC) 40 mg PO QAM RF: 0 albuterol sulfate 2.5 mg /3 mL (0.083 %) solution for nebulization 3 mg inhalation Q4H PRN (Reason: Wheezing) RF: 0 albuterol sulfate [Ventolin HFA] 90 mcg/actuation HFA aerosol inhaler 2 puff inhalation Q4H PRN (Reason: Wheezing) RF: 0 magnesium oxide 400 mg (241.3 mg magnesium) tablet 400 mg PO BID Qty: 60 RF: 1 ondansetron HCl 8 mg tablet 8 mg PO DIRECTED PRN (Reason: Nausea) RF: 0 levothyroxine 50 mcg tablet 50 mcg PO QAM RF: 0 dexamethasone 1 mg tablet 1 mg PO BID RF: 0 Artificial Tears (cmc) 1 % drops 1 drops OP QID Qty: 15 RF: 5 acetaminophen [Tylenol Extra Strength] 500 mg tablet 1,000 mg PO Q8H PRN (Reason: pain) Qty: 60 RF: 0 Discharge Orders: Discharge Order (Routine); Ordered 09/05/19 Ordered By: Carina Muñiz Admission Data Admit Date/Time: 09/03/19 02:03 Attending Provider: Carina Muñiz Admit Provider: Kristian Reaves Primary Care Provider: Edward Sanchez Other Providers: Alejandra Gilliland ; Davin Alston ; Derik Michelle ; Larissa Canales ; Devan Self ; Kristian Mena ; Jorge Vigil ; Tiffany Wright ; Simon Villarreal ; Edward Brown ; Carlos Brian ; Dotty Corrigan
[2019-09-06] MEDS ORDERED: VANCOMYCIN TROUGH ONE (11:30)
[2019-09-10 02:21] LABS: Anti Nuclear Antibody Screen NEGATIVE (NEGATIVE); Anti-Centromere Ab <1.0 NEG AI (<1.0 NEG); Anti-SS-A <1.0 NEG AI (<1.0 NEG); Anti-SS-B <1.0 NEG AI (<1.0 NEG); Complement C3 135 mg/dL (83-193); DNA ds Crithidia NEGATIVE (NEGATIVE); RNP Antibody <1.0 NEG AI (<1.0 NEG); Scleroderma Anti Scl-70 Ab <1.0 NEG AI (<1.0 NEG); Sm Antibody <1.0 NEG AI (<1.0 NEG)
== END 2019-09-05 20:40 | disposition short-term general hospital (02) | DRG 981 ==
LOC: ED 19:55 → 2N 09-03 02:03 → SUATTDRO 09-03 02:03 → 2N 09-03 02:48 → 1E 09-04 12:25